=== PATIENT | female | born 1955 | race African-American/Black ===

== ENCOUNTER 2024-08-08 17:38 | Emergency (ER) | payer OTHER, MEDICARE, SELFPAY ==
--- OUTSIDE RECORDS SUMMARY | 2024-08-08 17:40 | XMS_ITS | Encounter Summary ---
Author Organization [facility] Address [address] [place] [address] Care Team Providers Care Clinical Laboratory Director Name Role Phone Petros Galdamez MD Primary Care Provider Petros Galdamez MD Primary Care Provider [phone] Petros Galdamez MD Primary Care Provider [phone] Encounter Details Date Type Department Care Team (Late st Contact Info) Description 11/21/[address] [facility] [address] [place] [address] Van Tate Che, MD [address] [address] Social History Tobacco Use Types Packs/Day Years Used Date Smoking Tobacco: Former Cigarettes Q uit: 06/21/1995 Smokeless Tobacco: Never Alcohol Use Standard Drinks/Week Comments No 0 (1 standard drink = 0.6 oz pur e alcohol) Sex and Gender Information Value Date Recorded Sex Assigned at Female 03/10/2021 2:31 PM CDT Gender Identity Female 03/10/2021 2:31 PM CDT Sexual Orientation Straight 03/10/2021 2: 31 PM CDT documented as of this encounter Plan of Treatment Not on file documented as of this encounter Visit Diagnoses Not on filedocumented in this encounter Care Teams Clinical Laboratory Director Relationship Specialty Start Date End Date Petros Galdamez MD PCP - General 06/02/18 04/23/19 Petros Galdamez MD PCP - General 04/24/19 03/22/23 Petros Galdamez MD [address], [place] [id number] PCP - General Family Medicine 03/23/23 documented as of this encounter
--- OUTSIDE RECORDS SUMMARY | 2024-08-08 17:40 | XMS_ITS | Clinical Summary ---
Author Organization 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 FRIT COATER Gender Identity Not on file Sexual Orientation Not on file Plan of Treatment Health Maintenance Due Date Last Done Comments DEXA Bone Density 1955 Hepatitis C Virus (HCV) Screening 1955 TdaP Immunization 1955 Colonoscopy 08/28/1999 Colorectal Cancer Screening 08/28/1999 Cologuard 2004 Immunochemical Fecal Occult Blood 2004 Mammogram 2004 Pneumococcal Immunization (5 0+ years) (1 of 1 - PCV) 2004 Zoster Immunization (1 of 2) 2004 Influenza Immunization (#1) 2024 SARS-COV-2 Immunization (2023- season) 2024 Respiratory Syncytial Virus (RSV) Immunization (Adult) (1 - 1-dose 75+ series) 2029 Hepatitis B Immunization Aged Out No longer eligible based on patient's age to complete this topic Meningococcal Immunization (ACWY) Aged Out No longer eligible based on patient's age to complete this topic Rotavirus Immunization Aged Out No lo nger eligible based on patient's age to complete this topic
--- OUTSIDE RECORDS SUMMARY | 2024-08-08 17:41 | XMS_ITS | Referral Summary ---
Author Organization [facility] Address [address] [place] [address] Care Team Providers Care Seal Mixer Name Role Phone Petros Galdamez MD Primary Care Provider [phone] Source Comments [facility],non-owned Affiliates and Associated Physician Practices is amultiple site organization consisting of ambulatory clinics and hospital sitesin [place], [place], [place] and [place]. This disclosure is being madepursuant to the Care Everywhere program and may not contain all information available regarding this patient. Last updated 18.[facility] Allergies Active Allergy Reactions Criticality Noted Date Comments Adhesive Sensitivity Skin Reactions,Rash Medium 12/25/2019 Sulfamethoxazole W-Trimethoprim Angioedema High 09/18/2012 OK for patient to take non-antibiotic sulfa drugs as they do not cross-react with sulfa antiobiotics Nitrofurantoin Headache Low 01/03/2020 Medications * Be aware that medications may not be up to date on this document. Alwaysverify current medications with the patient. Medication Sig Dispensed Refills Start Date End Date Status Vitamin D3 (CHOLECALCIFEROL) 50 MCG (1999 UT) capsule Take 1 (one) capsule by mouth once daily 07/08/2021 Active hydroCHLOROthiazide (Hydrodiuril) 12.5 MG Take 1 (one) tablet by mouth once daily Active fluticasone propionate (FLONASE) 50 MCG/ACT nasal sprayIndications:Ch ronic rhinitis [place] 2 (two) sprays into each nostril once daily 1 Each 5 01/05/2022 Active albuterol HFA (PROVENTIL; VENTOLIN; PROAIR) 108 (90 Base) MCG/ACT inhalerIndications: Mild intermittent asthma without complication (HCC) Inhale 2 (two) puffs by mouth every 4 hours as needed for Shortness of Breath, Wheezing or Cough Can also take 10-15 min prior to exercise 18 g 5 01/05/2022 Active Additional Information Patient not taking.Reported on 07/13/2023 atorvastatin (Lipitor) 80 MG tablet Take 1 (one) tablet by mouth at bedtime 30 tablet 3 07/28/2022 Active aspirin (Aspirin) 81 MG chew tablet Take 1 (one) tablet by mouth once daily 100 tablet 3 07/29/2022 Active levothyroxine (Synthroid) 75 MCG tablet Take 1 (one) tablet by mouth once daily 2022 Active omeprazole (PriLOSEC) 20 MG capsule Take 1 (one) capsule by mouth once daily As Directed. 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 I encouraged exercise. Family history of coronary artery disease 2016 Overview (12/14/2018): Last Assessment & Plan: Continue risk factor modification for coronary artery disease. Lipid panel is satisfactory Chest pain 09/18/2012 Overview (12/14/2018): Last Assessment & Plan: She did not undergo a exercise stress test because of transportation issues. Her chest pain is better at this time. Will observe at this time. Resolved Problems Problem Noted Date Diagnosed Date Resolved Date Midline cystocele 06/02/2018 01/12/2023 Nocturia 06/02/2018 01/12/2023 Urge incontinence 06/02/2018 01/12/2023 Dyspnea on exertion 02/19/2017 01/13/20 Overview (12/14/2018): Last Assessment & Plan: Shortness of breath has improved after she lost some weight. Will observe at this time. Evidence of type 1 diastolic dysfunction on the echocardiogram. I hope that after we improve the blood pressure control she might have better breathing Labile essential hypertension 02/19/2017 01/12/2023 Overview (12/14/2018): Last Assessment & Plan: Evidence of moderate concentric LVH on echocardiogram. Her blood pressure slightly elevated today. I will prescribe hydrochlorothiazide 12.5 mg p.o. daily. 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 Never 07/28/2022 Q2: How many drinks containi ng alcohol do you have on a typical day when you are drinking? Patient does not drink Q3: How often do you have si x or more drinks on one occasion? Never 07/28/2022 Overall Financial Resource Strain (CARDIA) Answe r Date Recorded How hard is it for you to pa y for the very basics like food, housing, medical care, and heating? Not hard at all 07/27/2022 PHQ-2 Answer Date Recorded PHQ2 TOTAL SCORE 0 01/05/2023 [facility] [place] [facility] [employer] [facility] - Occupational Stress Questionnaire Answer Date Recorded Do you feel stress - tense, restless, nervous, or anxious, or unable to sleep at night because your mind is troubled all the time - these days? Not at all 07/27/2022 Hunger Vital Sign Answer Date Recorded Within the past 12 months, y ou worried that your food would run out before you got the money to buy more. Never true 07/27/19 23 Within the past 12 months, t he food you bought just didn't last and you didn't have money to get more. Never true 07/27/2022 PRAPARE - Transportation Answer Date Re corded In the past 12 months, has l ack of transportation kept you from medical appointments or from getting medications? No 11/2022 In the past 12 months, has l ack of transportation kept you from meetings, work, or from getting things needed for daily living? No 07/27/2022 Housing Stability Vital Sign Answer Norberto e Recorded In the last 12 months, was t here a time when you were not able to pay the mortgage or rent on time? No 07/27/2022 In the last 12 months, how many places have you lived? 1 07/27/2022 In the last 12 months, was t here a time when you did not have a steady place to sleep or slept in a jail (including now)? No 07/27/2022 Sex and Gender Information Value Date Recorded Sex Assigned at Female 03/10/2021 2:31 PM CDT Gender Identity Female 03/10/2021 2:31 PM CDT Sexual Orientation Straight 03/10/2021 2: 31 PM CDT Last Filed Vital Signs Vital Sign Reading Time Taken Comments Blood Pressure 132/74 07/13/2023 1:26 PM ARCHITECTURAL DESIGNER Pulse 79 03/05/2023 8:17 AM CDT Temperature 36.1 C (96.9 F) 01/12/2023 11:42 AM CDT Respiratory Rate 12 03/05/2023 8:17 AM CDT Oxygen Saturation 100% 10/27/2022 6:50 PM CDT Inhaled Oxygen Concentration - - Weight 86.5 kg (190 lb 9.6 oz) 07/13/2023 1:26 P M ARCHITECTURAL DESIGNER Height 157.5 cm (5' 2 ) 07/13/2023 1:26 PM ARCHITECTURAL DESIGNER Body Mass Index 34.86 07/13/2023 1:26 PM ARCHITECTURAL DESIGNER Functional Status Functional Status Response Date of Assess ment Is person deaf or have serious hearing difficult y? No 07/27/2022 Is person blind or have serious difficulty seein g? No 07/27/2022 Does person have serious dif ficulty walking/climbing stairs? No 07/27/2022 Does person have difficulty dressing/bathing? No 07/27/2022 Does person have difficulty doing errands alone? No 07/27/2022 Cognitive Status Response Date of Assessm ent Does person have difficulty concentrating/remembering/making decisions? No 07/27/2022 Plan of Treatment Not on file Procedures Procedure Name Priority Date/Time Associated Diagnosis Comments MAMMO BILAT SCREENING W JOVANY Routine 08/17/2023 3:32 PM ARCHITECTURAL DESIGNER Encounter for screening mammogram for malignant neoplasm of breast BASIC METABOLIC PANEL (CALCIUM TOTAL) Routine 07/28/2022 12:13 AM ARCHITECTURAL DESIGNER from Last 3 Months or Most Recently Relevant to Health Maintenance Results * MAMMO BILAT SCREENING W JOVANY (08/17/2023 3:32 PM ARCHITECTURAL DESIGNER) Anatomical Region Laterality Modality Breast Bilateral Mammography 08/26/2023 7:37 PM ARCHITECTURAL DESIGNER Impressions 08/26/2023 7:40 PM ARCHITECTURAL DESIGNER : No mammographic evidence of malignancy. RECOMMENDATION: Screening mammography in one year, pending no interval breast concerns. OVERALL ASSESSMENT: BI-RADS CATEGORY 1: NEGATIVE. > Interpreting Provider: Danay Wallace MD on 08/26/2023 7:40 PM Narrative 08/26/2023 7:40 PM ARCHITECTURAL DESIGNER EXAMINATIONS: BILATERAL DIGITAL SCREENING MAMMOGRAM AND BILATERAL BREAST TOMOSYNTHESIS WITH CAD LOCATION: [facility] EXAM DATE: 08/17/2023 HISTORY: Screening. No reported family history of breast cancer. RISK ASSESSMENT CALCULATION: Not performed as tablets currently not available due to pending upgrade. COMPARISON: There are no prior mammograms available for comparison. Patient reports prior at [facility] in 2012. These are no longer available for comparison. TECHNIQUE: Tomosynthesis (3D) and reconstructed synthetic 2-D images acquired and reviewed in the bilateral craniocaudal and mediolateral oblique projections. A total of 6 images obtained. Computer-aided detection (CAD) was utilized. BREAST PARENCHYMAL COMPOSITION: Category A: The breasts are almost entirely fatty. FINDINGS: There are no suspicious findings or evidence of malignancy on mammography. Ordering Provider Unlisted MD ZOEY WHEELER * BASIC METABOLIC PANEL (CALCIUM TOTAL) (07/28/2022 12:13 AM ARCHITECTURAL DESIGNER) BUN 11 7 - 26 mg/dL 07/28/2022 12:56 AM [facility] Creatinine 0.73 0.56 - 0.96 mg/dL 07/28/2022 12:56 AM [facility] Sodium 142 136 - 145 mmol/L 07/28/2022 12:56 AM [facility] Potassium 4.0 3.5 - 4.5 mmol/L 07/28/2022 12:56 AM [facility] Chloride 106 98 - 107 mmol/L 07/28/2022 12:56 AM [facility] CO2 28 22 - 29 mmol/L 07/28/2022 12:56 AM [facility] Glucose 94 70 - 115 mg/dL 07/28/2022 12:56 AM [facility] Calcium 8.9 8.4 - 10.2 mg/dL 07/28/2022 12:56 AM [facility] Anion Gap 12 8 - 18 07/28/2022 12:56 AM [facility] BUN/Creatinine Ratio 15 7 - 23 07/28/2022 12:56 AM [facility] Osmolality Calculated 293 270 - 300 mOsm/kg 07/28/2022 12:56 AM [facility] eGFR by CKD-EPI 90 >=90 mL/min/1.7 3 m2 07/28/2022 12:56 AM [facility] Blood BLOOD SPECIMEN / Unknown Venipuncture / Unknown 07/28/2022 12:13 AM ARCHITECTURAL DESIGNER 07/28/2022 12:27 AM ARCHITECTURAL DESIGNER Hosea Lim MD LAB - CHEMISTRY VITALY WHEELER [facility] [address] [place] [id number], [facility] [phone] from Last 3 Months or Most Recently Relevant to Health Maintenance Advance Directives * Full Code (Latest Code Status on File) Date Activated Date Inactivated Comments 07/27/2022 12:01 AM 07/28/2022 2:08 PM * Full Code Date Activated Date Inactivated Comments 12/25/2019 10:56 AM 12/26/2019 11:53 AM Care Teams Seal Mixer Relationship Specialty Start Date End Date Petros Galdamez MD [address], [place] [id number] PCP - General Family Medicine 03/23/23
--- OUTSIDE RECORDS SUMMARY | 2024-08-08 17:41 | XMS_ITS | Clinical Summary ---
Author Organization [facility] Address [address] [place] [address] Care Team Providers Care Sewer System Supervisor Name Role Phone Petros Galdamez MD Primary Care Provider [phone] Allergies Active Allergy Reactions Criticality Noted Date Comments Adhesive Rash Medium 12/25/2019 Sulfamethoxazole Sulfamethoxazole-Trimethoprim Trimethoprim Medications fluticasone (FLONASE) 50 mcg/actuation nasal spray inhale 2 spray by intranasal route every day in each nostril 0 spray 0 7 Active hydroCHLOROthiazid e (MICROZIDE) 12.5 mg capsule 8 Active omeprazole (PriLOSEC) 20 mg capsule Take 1 capsule (20 mg total) by mouth daily 0 Active atorvastatin (LIPITOR) 80 mg tablet Take 1 tablet (80 mg total) by mouth nightly at bedtime. Active aspirin 81 mg chewable tablet CHEW AND SWALLOW 1 TABLET BY MOUTH EVERY DAY Active levothyroxine (SYNTHROID) 75 mcg tabletIndications: Postablative hypothyroidism TAKE 1 TABLET BY MOUTH EVERY DAY 90 tablet 1 3 Active ergocalciferol (VITAMIN D) 50,000 unit capsuleIndications :Vitamin D deficiency TAKE 1 CAPSULE BY MOUTH EVERY 14 DAYS 2 capsule 11 4 Active Active Problems Problem Noted Date Diagnosed Date Postablative hypothyroidism 12/31/2020 Toxic thyroid nodule 03/21/2018 Vitamin D deficiency 03/18/2018 Hyperthyroidism S/P RAIA 01/31/2018 Labile essential hypertension 02/19/2017 Assessment & Plan (02/19/2017 1:56 PM CDT): Evidence of moderate concentric LVH on echocardiogram. Her blood pressure slightly elevated today. I will prescribe hydrochlorothiazide 12.5 mg p.o. daily. Chest pain 02/19/2017 Assessment & Plan (02/19/2017 1:58 PM CDT): She did not undergo a exercise stress test because of transportation issues. Her chest pain is better at this time. Will observe at this time. Dyspnea on exertion 02/19/2017 Assessment & Plan (02/19/2017 1:58 PM CDT): Shortness of breath has improved after she lost some weight. Will observe at this time. Evidence of type 1 diastolic dysfunction on the echocardiogram. I hope that after we improve the blood pressure control she might have better breathing Family history of coronary artery disease 2016 Assessment & Plan (02/19/2017 1:59 PM CDT): Continue risk factor modification for coronary artery disease. Lipid panel is satisfactory Body mass index 33.0-33.9, adult 02/19/2017 Assessment & Plan (02/19/2017 1:59 PM CDT): She is losing some weight by diet modification. I encouraged exercise. Resolved Problems Problem Noted Date Diagnosed Date Resolved Date Thyroid nodule 02/04/2018 04/18/2018 Surgical History Surgery Date Site/Laterality Comments HYSTERECTOMY 2008 Hysterectomy OTHER SURGICAL HISTORY 1984 vaginal cyst: cyst removed Medical History Medical History Date Comments Hx Other Medical vaginal cyst Hypertension Asthma smoker astham but not currenlty active GERD (gastroesophageal reflux disease) Family History Medical History Relation Name Comments Sickle cell anemia Brother Coronary artery disease Father Caleb nary artery disease; Cause of : Coronary artery disease Other Father Cancer/bone; Graves' disease Half-Sister 1 Hypothyroidism Half-Sister 1 Rheum arthritis Half-Sister 2 Other Maternal Grandmother at age 93 Other Mother Alive and well; Relation Name Status Comments Brother Father Alive Half-Sister 1 Half-Sister 2 Maternal Grandmother Mother Alive Social History Tobacco Use Types Packs/Day Years Used Date Smoking Tobacco: Former Smokeless Tobacco: Never Tobacco Cessation:Counseling Given: Not Answered Alcohol Use Standard Drinks/Week Comments No 0 (1 standard drink = 0.6 oz pur e alcohol) Comments Unknown Sex and Gender Information Value Date Recorded Sex Assigned at Not on file Legal Sex Female 2:48 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 Gender Identity Female 12/31/2020 6:46 AM CDT Sexual Orientation Straight 12/31/2020 6: 46 AM CDT Obstetrics History Last Filed Vital Signs Vital Sign Reading Time Taken Comments Blood Pressure 137/82 04/07/2023 3:40 PM CDT Pulse 87 04/07/2023 3:40 PM CDT Temperature 36.9 C (98.4 F) 04/07/2023 3:40 PM CDT Respiratory Rate 16 01/31/2018 10:09 AM CDT Oxygen Saturation 98% 12/07/2017 7:30 PM CDT Inhaled Oxygen Concentration - - Weight 88.3 kg (194 lb 9.6 oz) 04/07/2023 3:40 P M CDT Height 157.5 cm (5' 2 ) 04/07/2023 3:40 PM CDT Body Mass Index 35.59 04/07/2023 3:40 PM CDT Plan of Treatment Health Maintenance Due Date Last Done Comments Colon Cancer Screening-Colonoscopy 1954 Depression Screening 1954 Fall Risk Assessment 1954 Hepatitis C Screening 1954 Osteoporosis Screening-Bone Density Scan 1954 DTaP/Tdap/Td Vaccine (1 - Tdap) 1965 Hepatitis B Screening 1972 Pneumococcal vaccine 65+ (1 of 1 - PCV) 2004 Zoster Vaccine (1 of 2) 2004 Well Visit 65+ 08/28/2019 Covid-19 Vaccine (3 - 2023- season) 2024, 01/13/2021 Influenza Vaccine (#1) 2024 Breast Cancer Screening-Mammogram 08/17/2024 08/17/2023, 08/17/2023, 09/09/2012 Procedures Procedure Name Priority Date/Time Associated Diagnosis Comments DIGITAL MAMMOGRAPHY Routine 09/09/2012 9 :26 AM CDT from Last 3 Months or Most Recently Relevant to Health Maintenance Results * DIGITAL MAMMOGRAPHY (09/09/2012 9:26 AM CDT) Anatomical Region Laterality Modality Breast Mammography 09/09/2012 9:26 AM CDT Narrative 09/20/2012 4:58 PM CDT Acc#: [id number] [facility] [id number] - Screening Mamm BI DATE OF EXAM: Sep 09 2012 9:26AM DIAGNOSIS: SCREEN MAMMOGRAPHY NEC CLINICAL HISTORY: SCREENING RESULT: \ BILATERAL DIGITAL SCREENING MAMMOGRAM EXAM DATE: 09/09/2012. CLINICAL HISTORY: Screening in an asymptomatic patient with no personal or family history of breast cancer. TECHNIQUE: Bilateral full field digital mammography was performed in the CC and MLO projections. Prior mammograms performed at [facility] in [place], [place] and are not currently available for comparison. CAD was utilized. FINDINGS: The breasts are fatty. Small nodules are seen in the upper outer breasts bilaterally. Two right breast moles are marked. Bilateral axillary lymph nodes are normal in appearance. There are no suspicious microcalcifications. IMPRESSION: \ CATEGORY 0, ATTEMPTS WILL BE MADE TO OBTAIN PRIOR OUTSIDE MAMMOGRAMS FOR COMPARISON. IMPRESSION OF OVERALL ASSESSMENT CATEGORY 0 -- INCOMPLETE, NEEDS ADDITIONAL EVALUATION WITH COMPARISON TO PRIOR (OLD) FILMS. (OLD FILMS SENT FOR.) ADDENDUM Unable to obtain previous outside mammograms for comparison. This examination shows fatty parenchyma. Nodules laterally in both breasts are felt to be lymph nodes. IMPRESSION CATEGORY 1 -- NEGATIVE MAMMOGRAM. IMPRESSION OF OVERALL ASSESSMENT CATEGORY 1 -- NEGATIVE TECHNOLOGIST: TOÑITO TESFAYE, TECHNOLOGIST MEDICAL IMAGING MIXING AND DISPENSING SUPERVISOR: SINDY TRANSCRIBE DATE/TIME: Sep 09 2012 2:07P RADIOLOGIST: SUNNI LY M.D. READ ON: Sep 20 2012 2:28P ORDERING DR: COREY MOLINA M.D. THIS DOCUMENT HAS BEEN ELECTRONICALLY SIGNED BY: SUNNI LY M.D. ON: Sep 20 2012 4:58P MIXING AND DISPENSING SUPERVISOR: SINDY TRANSCRIBE DATE/TIME: Sep 09 2012 2:07P RADIOLOGIST: SUNNI LY M.D. READ ON: Sep 20 2012 2:28P ORDERING DR: COREY MOLINA M.D. THIS DOCUMENT HAS BEEN ELECTRONICALLY SIGNED BY: SUNNI LY M.D. ON: Sep 20 2012 4:58P Procedure Note Provider, MD Hannah - 10/16/2016 Acc#: [id number] [facility] 0017 - Screening Mamm BI DATE OF EXAM: Sep 09 2012 9:26AM DIAGNOSIS: SCREEN MAMMOGRAPHY NEC CLINICAL HISTORY: SCREENING RESULT: \ BILATERAL DIGITAL SCREENING MAMMOGRAM EXAM DATE: 09/09/2012. CLINICAL HISTORY: Screening in an asymptomatic patient with no personal or family history of breast cancer. TECHNIQUE: Bilateral full field digital mammography was performed in the CC and MLO projections. Prior mammograms performed at [facility] in [place], [place] and are not currently available for comparison. CAD was utilized. FINDINGS: The breasts are fatty. Small nodules are seen in the upper outer breasts bilaterally. Two right breast moles are marked. Bilateral axillary lymph nodes are normal in appearance. There are no suspicious microcalcifications. IMPRESSION: \ CATEGORY 0, ATTEMPTS WILL BE MADE TO OBTAIN PRIOR OUTSIDE MAMMOGRAMS FOR COMPARISON. IMPRESSION OF OVERALL ASSESSMENT CATEGORY 0 -- INCOMPLETE, NEEDS ADDITIONAL EVALUATION WITH COMPARISON TO PRIOR (OLD) FILMS. (OLD FILMS SENT FOR.) ADDENDUM Unable to obtain previous outside mammograms for comparison. This examination shows fatty parenchyma. Nodules laterally in both breasts are felt to be lymph nodes. IMPRESSION CATEGORY 1 -- NEGATIVE MAMMOGRAM. IMPRESSION OF OVERALL ASSESSMENT CATEGORY 1 -- NEGATIVE TECHNOLOGIST: TOÑITO TESFAYE, TECHNOLOGIST MEDICAL IMAGING MIXING AND DISPENSING SUPERVISOR: SINDY TRANSCRIBE DATE/TIME: Sep 09 2012 2:07P RADIOLOGIST: SUNNI LY M.D. READ ON: Sep 20 2012 2:28P ORDERING DR: COREY MOLINA M.D. THIS DOCUMENT HAS BEEN ELECTRONICALLY SIGNED BY: SUNNI LY M.D. ON: Sep 20 2012 4:58P MIXING AND DISPENSING SUPERVISOR: SINDY TRANSCRIBE DATE/TIME: Sep 09 2012 2:07P RADIOLOGIST: SUNNI LY M.D. READ ON: Sep 20 2012 2:28P ORDERING DR: COREY MOLINA M.D. THIS DOCUMENT HAS BEEN ELECTRONICALLY SIGNED BY: SUNNI LY M.D. ON: Sep 20 2012 4:58P us Historical Provider MD [facility] MAMMO PROCEDURES Carmen l Result from Last 3 Months or Most Recently Relevant to Health Maintenance Insurance [facility] PPO [facility] MEDICAID MEDICARE SOLUTIONS MEDICARE [facility] MEDICARE SOLUTIONS MEDICARE SOLUTIONS Care Teams Sewer System Supervisor Relationship Specialty Start Date End Date Petros Galdamez MD PCP - General Family Practice 01/04/18
--- OUTSIDE RECORDS SUMMARY | 2024-08-08 17:41 | XMS_ITS | Encounter Summary ---
Author Organization [facility] Address [address] [place] [address] Care Team Providers Care Steel Rigger Name Role Phone Petros Galdamez MD Primary Care Provider Petros Galdamez MD Primary Care Provider [phone] Reason for Visit * Reason Onset Date Comments Post-Op 12/28/2019 Encounter Details Date Type Department Care Team (Late st Contact Info) Description 12/28/2019 Telephone [facility] [address] [place], [place] [id number] Van Tate Che, MD [address] [facility] [address] [place] [address] Post-Op Social History Tobacco Use Types Packs/Day Years [...] PM CDT documented as of this encounter Miscellaneous Notes * Telephone Encounter - Pradeep Marin RN - 12/28/2019 4:25 PM CDT Reassured Ms. Israel to start the ibuprofen - she hadn't started it yet. Assured her it may help with the pain to have a BM and her kong cath. She agrees to plan. We will see you next week. Call us back if needs something else. * Telephone Encounter - Van Tate Che, MD - 12/28/2019 4:11 PM CDT Oh. Not really. I meant one tablet 3 times a day. If she is at 4, just leave things alone She will start having loose stools soon No glycerin suppositories - these are a laxative and make her have bowel movements by stimulating her rectum * Telephone Encounter - Van Tate Che, MD - 12/28/2019 1:47 PM CDT Ibuprofen is fine. She is supposed to go to 3 stool softeners a day * Telephone Encounter - Pradeep Marin RN - 12/28/2019 11:42 AM CDT C/o burning in the back - clarified rectal area. Had BM yesterday without trying and the stool was'Huge . Since BM, the discomfort became a burning pain. She feels another stool, but afraid to passit.Using stool softeners 2 tabs BID. Burning pain happened after talking to Dr Tate yesterday. She stopped all pain pills - was taking every [address], [address] Dr Tate helped her understand this can lead to constipation. She's more afraid of constipation than pain. She hasn't taken anymore prescribed narcotics or ibuprofen or Tylenol. Denies using Ibuprofen r/t afraid to take anything. Went home with kong catheter which is uncomfortable too. Denies bleeding d/c. Some red & pink seen on stool ADVISED: will send this to Dr Tate. Please use ibuprofen for pain/discomfort. It should helped with this burning pain and discomfort from the catheter. If it doesn't, we want to know about it. * Telephone Encounter - Zach Douglass - 12/28/2019 10:41 AM CDT Pt calling to report that since surgery on Wednesday, 12/24 she has been very miserable . Pt states that she is having a lot of discomfort and a burning sensation from front to back. Pt stopped taking pain med but would like to speak with a Nurse about managing discomfort. Pt's CB #: [phone] documented in this encounter Plan of Treatment Not on file documented as of this encounter Visit Diagnoses Not on filedocumented in this encounter Care Teams Steel Rigger Relationship Specialty Start Date End Date Petros Galdamez MD PCP - General 04/24/19 03/22/23 Petros Galdamez MD [address] [place], [place] [id number] PCP - General Family Medicine 03/23/23 documented as of this encounter
--- OUTSIDE RECORDS SUMMARY | 2024-08-08 17:41 | XMS_ITS | Clinical Summary ---
Author Organization [facility] Address [address] [place] [address] Care Team Providers Care Head Operator Sulfide Name Role Phone Petros Galdamez MD Primary Care Provider [phone] Source Comments [facility],non-owned Affiliates and Associated Physician Practices is amultiple site organization consisting of ambulatory clinics and hospital sitesin [place], [place], [place] and [place]. This disclosure is being madepursuant to the Care Everywhere program and may not contain all information available regarding this patient. Last updated 18.[facility] Allergies Active Allergy Reactions Criticality Noted Date [...] (FLONASE) 50 MCG/ACT nasal sprayIndications:Ch ronic rhinitis [place] 2 (two) sprays into each nostril once [...] 01/12/2023 Immunizations Name Administration Dates Next Due Dualog primary monoval ent 12+ yr 0.3mL Purple cap 02/03/2021,01/13/2021 Family History Medical History Relation Name Comments None Known Brother Depression Father Hypertension Father None Known Maternal Grandfather None Known Maternal Grandmother None Known Mother None Known Other None Known Paternal Grandfather None Known Paternal Grandmother None Known Sister Alcohol abuse Neg Hx Asthma Neg Hx Dementia Neg Hx Drug Abuse Neg Hx Glaucoma Neg Hx Gout Neg Hx Leukemia Neg Hx Migraine Neg Hx Multiple Sclerosis Neg Hx Other Neg Hx Thyroid Disease Neg Hx Relation Name Status Comments Brother Father Maternal Grandfather Maternal Grandmother Mother Other Paternal Grandfather Paternal Grandmother Sister Social History Tobacco Use Types Packs/Day Years [...] Date Recorded PHQ2 TOTAL SCORE 0 01/05/2023 [facility] - Occupational Stress [...] place to sleep or slept in a intermediate (including now)? No 07/27/2022 Sex and Gender Information Value Date Recorded Sex Assigned at Female 03/10/2021 2:31 PM CDT Gender Identity Female 03/10/2021 2:31 PM CDT Sexual Orientation Straight 03/10/2021 2: 31 PM CDT Last Filed Vital Signs Vital Sign Reading Time Taken Comments Blood Pressure 132/74 07/13/2023 1:26 PM SHIPPER/RECEIVER Pulse 79 03/05/2023 8:17 AM CDT Temperature 36.1 C (96.9 F) 01/12/2023 11:42 AM CDT Respiratory Rate 12 03/05/2023 8:17 AM CDT Oxygen Saturation 100% 10/27/2022 6:50 PM CDT Inhaled Oxygen Concentration - - Weight 86.5 kg (190 lb 9.6 oz) 07/13/2023 1:26 P M SHIPPER/RECEIVER Height 157.5 cm (5' 2 ) 07/13/2023 1:26 PM SHIPPER/RECEIVER Body Mass Index 34.86 07/13/2023 1:26 PM SHIPPER/RECEIVER Plan of Treatment Health Maintenance Due Date Last Done Comments BONE DENSITY TESTING 1955 COLOGUARD (AGES 45-75) - COLON CA SCREENING 1954 COLON MONITORING 1954 COLONOSCOPY - COLON CA SCREENING 1954 CT COLONOGRAPHY - COLON CA SCREENING 1955 Colorectal Cancer Screening 1955 FIT - COLON CA SCREENING 1954 FLEX SIG - COLON CA SCREENING 1955 HEPATITIS C SCREENING 08/22/1972 DTAP/TDAP/TD VACCINES (1 - Tdap) 1973 PNEUMOCOCCAL VACCINE 50+ (1 of 1 - PCV) 2004 ZOSTER VACCINE (1 of 2) 2004 Respiratory Syncytial Virus (RSV) Vaccine Pt: or over 60 yrs (1 - Risk 60-74 years 1-dose series) 2014 COVID-19 VACCINE ( season) 2024 02/03/2021, 01/13/2021 INFLUENZA VACCINE (#1) 2024 DEPRESSION SCREENING 06/21/2024 01/12/2023 MEDICARE AWV CALENDAR YEAR 2024 SCREENING FOR DIABETES 07/28/2025 3, 07/28/2022, 07/28/2022, Additional history exists MAMMOGRAM 08/17/2025 08/17/2023, 09/09/2012 HEPATITIS B VACCINE Aged Out No longe r eligible based on patient's age to complete this topic HIB VACCINE Aged Out No longer eligi ble based on patient's age to complete this topic HPV VACCINE Aged Out No longer eligi ble based on patient's age to complete this topic MENINGOCOCCAL (Group B) VACCINE Aged Out No longer eligible based on patient's age to complete this topic MENINGOCOCCAL VACCINE Aged Out No norma diandra eligible based on patient's age to complete this topic Procedures Procedure Name Priority Date/Time Associated Diagnosis Comments MAMMO BILAT SCREENING W JOVANY Routine 08/17/2023 3:32 PM SHIPPER/RECEIVER Encounter for screening mammogram for malignant neoplasm of breast BASIC METABOLIC PANEL (CALCIUM TOTAL) Routine 07/28/2022 12:13 AM SHIPPER/RECEIVER from Last 3 Months or Most Recently Relevant to Health Maintenance Results * MAMMO BILAT SCREENING W JOVANY (08/17/2023 3:32 PM SHIPPER/RECEIVER) Anatomical Region Laterality Modality Breast Bilateral Mammography 08/26/2023 7:37 PM SHIPPER/RECEIVER Impressions 08/26/2023 7:40 PM SHIPPER/RECEIVER : No mammographic evidence of malignancy. RECOMMENDATION: Screening mammography in one year, pending no interval breast concerns. OVERALL ASSESSMENT: BI-RADS CATEGORY 1: NEGATIVE. > Interpreting Provider: Danay Wallace MD on 08/26/2023 7:40 PM Narrative 08/26/2023 7:40 PM SHIPPER/RECEIVER EXAMINATIONS: BILATERAL DIGITAL SCREENING MAMMOGRAM AND BILATERAL BREAST TOMOSYNTHESIS WITH CAD LOCATION: [facility] EXAM DATE: 08/17/2023 HISTORY: Screening. No reported family history of breast cancer. RISK ASSESSMENT CALCULATION: Not performed as tablets currently not available due to pending upgrade. COMPARISON: There are no prior mammograms available for comparison. Patient reports prior at [facility] in 2012. These are no longer available [...] METABOLIC PANEL (CALCIUM TOTAL) (07/28/2022 12:13 AM SHIPPER/RECEIVER) BUN 11 7 - 26 mg/dL 07/28/2022 12:56 AM [facility] Creatinine 0.73 0.56 - 0.96 mg/dL 07/28/2022 12:56 AM [facility] Sodium 142 136 - 145 mmol/L 07/28/2022 12:56 AM [facility] Potassium 4.0 3.5 - 4.5 mmol/L 07/28/2022 12:56 AM [facility] Chloride 106 98 - 107 mmol/L 07/28/2022 12:56 AM [facility] CO2 28 22 - 29 mmol/L 07/28/2022 12:56 AM [facility] Glucose 94 70 - 115 mg/dL 07/28/2022 12:56 AM [facility] Calcium 8.9 8.4 - 10.2 mg/dL 07/28/2022 12:56 AM [facility] Anion Gap 12 8 - 18 07/28/2022 12:56 AM [facility] BUN/Creatinine Ratio 15 7 - 23 07/28/2022 12:56 AM [facility] Osmolality Calculated 293 270 - 300 mOsm/kg 07/28/2022 12:56 AM [facility] eGFR by CKD-EPI 90 >=90 mL/min/1.7 3 m2 07/28/2022 12:56 AM [facility] Blood BLOOD SPECIMEN / Unknown Venipuncture / Unknown 07/28/2022 12:13 AM SHIPPER/RECEIVER 07/28/2022 12:27 AM [facility] Hosea Lim MD LAB - CHEMISTRY VITALY WHEELER [facility] Organization Address City/State/ZIP Co de Phone Number [facility] [address] [place] [address], [facility] [phone] from Last 3 Months or Most Recently Relevant to Health Maintenance Advance Directives * Full Code (Latest Code Status on File) Date Activated Date Inactivated Comments 07/27/2022 12:01 AM 07/28/2022 2:08 PM * Full Code Date Activated Date Inactivated Comments 12/25/2019 10:56 AM 12/26/2019 11:53 AM Care Teams Head Operator Sulfide Relationship Specialty Start Date End Date Petros Galdamez MD [address] [place], [place] [id number] PCP - General Family Medicine 03/23/23
--- OUTSIDE RECORDS SUMMARY | 2024-08-08 17:41 | XMS_ITS | Referral Summary ---
Author Organization [facility] Address [address] [place] [address] Care Team Providers Care Water Analyst Name Role Phone Petros Galdamez MD Primary Care Provider [phone] Allergies Active Allergy Reactions Criticality Noted Date [...] Date Resolved Date Thyroid nodule 02/04/2018 04/18/2018 Social History Tobacco Use Types Packs/Day Years Used Date Smoking Tobacco: Former Smokeless Tobacco: Never Tobacco Cessation:Counseling Given: Not Answered Alcohol Use Standard Drinks/Week Comments No 0 (1 standard drink = 0.6 oz pur e alcohol) Comments Unknown Sex and Gender Information Value Date Recorded Sex Assigned at Not on file Legal Sex Female 2:48 AM EDGE PLUGGER Gender Identity Female 12/31/2020 6:46 AM CDT Sexual Orientation Straight 12/31/2020 6: 46 AM CDT Last Filed Vital Signs Vital Sign [...] 04/07/2023 3:40 PM CDT Plan of Treatment Not on file Procedures Procedure Name Priority Date/Time Associated Diagnosis Comments DIGITAL MAMMOGRAPHY Routine 09/09/2012 9 :26 AM CDT from Last 3 Months or Most Recently Relevant to Health Maintenance Results * DIGITAL MAMMOGRAPHY (09/09/2012 9:26 AM CDT) Anatomical Region Laterality Modality Breast Mammography 09/09/2012 9:26 AM CDT Narrative 09/20/2012 4:58 PM CDT Acc#: [id number] VICTOR MANUEL 0017 - Screening Mamm BI [...] and MLO projections. Prior mammograms performed at [facility] in [place], [place] and are not currently available for [...] ASSESSMENT CATEGORY 1 -- NEGATIVE TECHNOLOGIST: TOÑITO TESFAYE TECHNOLOGIST MEDICAL IMAGING BUREAU DIRECTOR: SINDY TRANSCRIBE DATE/TIME: Sep 09 2012 2:07P RADIOLOGIST: SUNNI YL M.D. READ ON: Sep 20 2012 2:28P ORDERING DR: COREY MOLINA M.D. THIS DOCUMENT HAS BEEN ELECTRONICALLY SIGNED BY: SUNNI LY M.D. ON: Sep 20 2012 4:58P BUREAU DIRECTOR: SINDY TRANSCRIBE DATE/TIME: Sep 09 2012 2:07P RADIOLOGIST: SUNNI LY M.D. READ ON: Sep 20 2012 2:28P ORDERING DR: COREY MOLINA M.D. THIS DOCUMENT HAS BEEN ELECTRONICALLY SIGNED BY: SUNNI LY M.D. ON: Sep 20 2012 4:58P Procedure Note Provider, MD Hannah - 10/16/2016 Acc#: [id number] VI[facility] 0017 - Screening Mamm BI [...] and MLO projections. Prior mammograms performed at [facility] in [place], [place] and are not currently available for [...] ASSESSMENT CATEGORY 1 -- NEGATIVE TECHNOLOGIST: TOÑITO TESFAYE TECHNOLOGIST MEDICAL IMAGING BUREAU DIRECTOR: SINDY TRANSCRIBE DATE/TIME: Sep 09 2012 2:07P RADIOLOGIST: SUNNI LY M.D. READ ON: Sep 20 2012 2:28P ORDERING DR: COREY MOLINA M.D. THIS DOCUMENT HAS BEEN ELECTRONICALLY SIGNED BY: SUNNI LY M.D. ON: Sep 20 2012 4:58P BUREAU DIRECTOR: SINDY TRANSCRIBE DATE/TIME: Sep 09 2012 2:07P RADIOLOGIST: SUNNI LY M.D. READ ON: Sep 20 2012 2:28P ORDERING DR: COREY MOLINA M.D. THIS DOCUMENT HAS BEEN ELECTRONICALLY SIGNED BY: SUNNI LY M.D. ON: Sep 20 2012 4:58P Historical Provider MD MAURICE MAMMO PROCEDURES Carmen l Result from Last 3 Months or Most Recently Relevant to Health Maintenance Insurance [place] PPO [employer]PA [facility] MEDICAID MEDICARE SOLUTIONS MEDICARE [facility] MEDICARE SOLUTIONS MEDICARE SOLUTIONS Care Teams Water Analyst Relationship Specialty Start Date End Date Petros Galdamez MD PCP - General Family Practice 01/04/18
--- OUTSIDE RECORDS SUMMARY | 2024-08-08 17:41 | XMS_ITS | Clinical Summary ---
Author Organization [facility] Address [address] [place] [address] Care Team Providers Care Solution Professional Name Role Phone Petros Galdamez MD Primary Care Provider [phone] Allergies Active Allergy Reactions Criticality Noted Date Comments Sulfamethoxazole-Trimethoprim Swelling 2018 Medications fluticasone propionate (FLONASE) 50 MCG/ACT nasal spray 1 spray by Each Nostril route daily. 16 mL 0 Active albuterol sulfate HFA 108 (90 Base) MCG/ACT inhaler Inhale 2 puffs into the lungs every 4 (four) hours as needed for Shortness of breath, Wheezing or Cough. Can take 15 minutes prior to exercise. 2 Active hydroCHLOROthia zide (MICROZIDE) 12.5 MG capsule Take 12.5 mg by mouth daily. 2 Active levothyroxine (SYNTHROID) 50 MCG tablet Take 50 mcg by mouth every morning. 2 Active EPINEPHrine (EPIPEN) 0.3 MG/0.3ML injection Inject 0.3 mLs (0.3 mg total) into the muscle as needed for Anaphylaxis. 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 Her blood pressure slightly elevated today. I will prescribe hydrochlorothiazide 12.5 mg p.o. daily. Last Assessment & Plan: Evidence of moderate concentric LVH on echocardiogram. Her blood pressure slightly elevated today. I will prescribe hydrochlorothiazide 12.5 mg p.o. daily. Dyspnea on exertion 02/19/2017 Overview (02/02/2022): Last Assessment & Plan: Shortness of breath has improved after she lost some weight. Will observe at this time. Evidence of type 1 diastolic dysfunction on the echocardiogram. I hope that after we improve the blood pressure control she might have better breathing Last Assessment & Plan: Shortness of breath has improved after she lost some weight. Will observe at this time. Evidence of type 1 diastolic dysfunction on the echocardiogram. I hope that after we improve the blood pressure control she might have better breathing Chest pain 09/18/2012 Overview (02/02/2022): Last Assessment & Plan: She did not undergo a exercise stress test because of transportation issues. Her chest pain is better at this time. Will observe at this time. Last Assessment & Plan: She did not undergo a exercise stress test because of transportation issues. Her chest pain is better at this time. Will observe at this time. 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 Gender Identity Not on file Sexual Orientation Not on file Last Filed Vital Signs Vital Sign Reading Time Taken Comments Blood Pressure 149/80 02/13/2022 4:32 PM CDT Pulse 69 02/13/2022 4:32 PM CDT Temperature 36.1 C (97 F) 02/13/2022 2:23 PM CDT Respiratory Rate 16 02/13/2022 2:23 PM CDT Oxygen Saturation 100% 02/13/2022 4:32 PM CDT Inhaled Oxygen Concentration - - Weight 90.3 kg (199 lb) 02/13/2022 2:23 PM CDT Height 157.5 cm (5' 2 ) 02/13/2022 2:23 PM CDT Body Mass Index 36.4 02/13/2022 2:23 PM CDT Plan of Treatment Health Maintenance Due Date Last Done Comments Colorectal Cancer Screening Colonoscopy (10 Years) 1954 Hepatitis C 1972 DTaP, Tdap and Td Vaccines ( 1 - Tdap) 1973 Mammogram Screening 1994 Zoster Vaccines (1 of 2) 2004 Annual Medicare Wellness Visit 08/28/2019 Dexa Scan (General) 08/28/2019 Pneumococcal Vaccine: 65+ Years (1 of 1 - PCV) 08/28/2019 COVID-19 Vaccine (3 - 2023-2 5 season) 2024 02/03/2021, 01/13/2021 Influenza Adult (#1) 2024 RSV Immunization or 60+ Years (1 - 1-dose 75+ series) 2029 Meningococcal B Vaccine Aged Out No l onger eligible based on patient's age to complete this topic Meningococcal Vaccine Aged Out No norma diandra eligible based on patient's age to complete this topic RSV Immunizations Under 20 Months Aged Out No longer eligible b ased on patient's age to complete this topic Goals Goal Patient Goal Type Associated Problems Recent Progress Patient-Stated? Author Health - patient able to perform ADLs independently Lifestyle No Pradeep Siddiqui i, RN Insurance [facility] Advance Directives * Full Code (Latest Code Status on File) Date Activated Date Inactivated Comments 02/03/2022 12:15 AM 02/03/2022 4:09 PM Care Teams Solution Professional Relationship Specialty Start Date End Date Petros Galdamez MD PCP - General FAMILY PRACTICE 06/29/18
--- OUTSIDE RECORDS SUMMARY | 2024-08-08 17:41 | XMS_ITS | Data Portability ---
Author Organization CHARI CHAPISEmilee Burger Address [address] [place] [address] Care Team Providers Care Back Tender Pulp Drier Name Role Phone PETROS GALDAMEZ Primary Care Provider [phone] Assessment No assessment recorded. Plan of Treatment Reminders Order Date Submit Date Provider Last Modified By Organization Details Last Modified Time Details Appointments None recorded. Lab None recorded. Referral None recorded. Procedures None recorded. Surgeries None recorded. Imaging None recorded. Medication Orders fluticasone propionate 50 mcg/actuati on nasal spray,suspe nsion 2023 [id number], [address] [place] [address], [id number], 12:31:41 Maxitrol 3.5 mg/g-10,000 unit/g-0.1 % [facility] ointment [id number], [address] [place], [place], [id number], 4 16:38:47 Refresh Tears 0.5 % eye drops 2023 [facility], [address] [place], [place], [id number], 4 16:38:47 Zithromax Z-Geronimo 250 mg tablet 2023 [email or web address] 23 [facility] #87601, [facility] [place], [place], [id number], 23:16:04 methylpredn isolone 4 mg tablet 2023 024 [email or web address] [facility] #99372, [address] [place], [place], [id number], 23:16:04 Patient Targets Encounter Date Encounter Id Patient Goals Patient Target Last Modified By Organization Details Last Modified Time We do hope to get to the bottom of this. I would like to add a steroid inhaler, but they cost to much. Our system faling us, but I won't say more. [email or web address] Not available 04/29/2024 13:56:47 Patient Instructions Encounter Date Encounter Id Patient Instructions Last Modified By Organization Details Last Modified Time 03/20/2024 [id number] stroke: care instructions [email or web address] Not available 03/20/2024 22:44:21 bronchitis: care instructions [email or web address] Not available 03/20/2024 22:44:21 learning about high blood pressure [email or web address] Not available 03/20/2024 22:44:21 You may use robitussin DM over the counter for cough. Please take all medications as directed. Report any problems with them to us. Keep adequate fluid intake. Summer is coming to a close. Fall is here. Changes in weather can cause an increased chance of illness. Try to keep the body temperature constant. Decrease red meat. (Pork & beef). Increase vegetables & fruits. Please add exercise if you can. Get a little sunlight daily even if it's in your house. Vitamin D Deficiency is caused by our lack of sunlight. Not because of a poor diet. Let the shades up and let the sun shine in on you. Use the [address] [facility], they address all the issues. Follow up in 1 month. [email or web address] Not available 03/20/2024 22:45:06 We discuss the education of the problems, the possible causes of these problems and possible treatments that we can offer. The side effects of the medications prescribed are discussed. Support and counseling given. Our primary goal, is to help you. Let's work together to get a better outcome. I discussed the [address] [facility] to [facility]. [email or web address] Not available 03/20/2024 22:45:12 03/27/2024 [id number] stroke: care instructions [email or web address] Not available 03/27/2024 23:09:22 learning about high blood pressure [email or web address] Not available 03/27/2024 23:09:05 See your Pulp Machine Operator when you can. [email or web address] Not available 03/27/2024 23:10:00 Make an appointment for and come in so I can listen to your heart and see what I hear. Not available 03/27/2024 21:38:56 04/10/2024 [id number] Use new rx Ret i n a few weeks if not better. [email or web address] Not available 04/10/2024 16:49:25 04/17/2024 [id number] learning about high blood pressure [email or web address] Not available 04/17/2024 17:37:10 Go to ER at [facility] and I will call ahead to let them know I am sending you. We will arrange follow up after we know what is going on. [email or web address] Not available 04/17/2024 17:40:42 04/28/2024 [id number] allergies: care instructions [email or web address] Not available 04/29/2024 12:31:37 learning about high blood pressure Not available 04/29/2024 14:04:53 Please take all medications as directed. Report any problems with them to us. Keep adequate fluid intake. Fall is here with it's cooler temperatures and allergies. Changes in weather can cause an increased chance of illness. The cooler temperatures can also result in more pain. Try to keep the body temperature constant. Decrease red meat. (Pork & beef). Increase vegetables & fruits. Use the [address] [facility], they address all the issues. Follow up in 3 weeks. [email or web address] Not available 04/29/2024 13:54:33 We discuss the education of the problems, the possible causes of these problems and possible treatments that we can offer. The side effects of the new medications prescribed are discussed. Support and counseling given. Our primary goal, is to help you. Let's work together to get a better outcome. I discussed the [address] [facility] to Good Health. [email or web address] Not available 04/29/2024 13:54:48 Reason for Referral None Reported. Results Created Date Observation Date Name Description Value Unit Range Abnormal Flag Note LastModifiedBy Organization Detail LastModifiedTime 02/18/20 24 02/17/2024 US, echoc ardio gram, trans thora cic, compl ete, w/ color flow No observ ation record ed. [facility] Scheduling [address], [place], [address], 02/18/2024 12:55:56 02/18/20 24 02/17/2024 US, doppl er echoc ardio gram No observ ation record ed. [facility] Scheduling [address], [place], [address], 03/06/2024 10:07:06 03/02/20 24 02/17/2024 exerc ise terrances s test No observ ation record ed. [facility] Scheduling [address], [place], [address], 03/02/2024 12:08:36 04/17/20 24 04/17/2024 elect rocar diogr am No observ ation record ed. [facility] Scheduling [address], [place], [address], 04/18/2024 17:14:12 04/17/20 24 04/17/2024 CT, angio gram, chest , w/ contr ast No observ ation record ed. [facility] Scheduling [address], [place], [address], 04/18/2024 17:15:24 04/18/20 24 04/17/2024 elect rocar diogr am No observ ation record ed. [email or web address] [facility] Scheduling [address], [place], [address], 04/22/2024 21:34:41 04/25/20 24 02/17/2024 cardi ac stres s test No observ ation record ed. [email or web address] [place] [address] [facility] [address] [place], [address], 04/29/2024 21:19:10 Result Notes None recorded. Problems Name Problem SNOMED Code Status Onset Date Resolution Date Notes Provider Name and Address Organization Details Recorded Time Allergic rhinitis 79683796 Active 2017 JADON Ch[place], [place] - [facility] 4 17:45:02 Hyperthyroidi sm 37262041 Active 2017 J[place], [place] [facility] 4 17:45:26 Essential hypertension 59014920 Active 2017 J[place], [place] [facility] 4 17:45:12 Fracture of foot 31745461 Active 2017 [facility] Available [facility] 4 04:21:17 Closed fracture of calcaneus 03747926 Active 2017 J[place], [place] - [facility] 4 17:45:07 Cerebrovascul ar accident 959604033 Active 2022 J[place] [facility] 4 17:45:04 Pain in lower limb 61110315 Active 2022 J[place] [facility] 4 17:45:19 History of cerebrovascul ar accident 794875591 Active 2023 JADON Olivares, [place] - [facility] 4 17:56:18 Hyperlipidemi a 87318401 Active 2023 JADON Oliv[place], [place] - [facility] 4 17:56:20 Chest pain 19331755 Active 2023 JADON Oliv[place], [place] - [facility] 4 17:56:21 Notes:Some problems listed i n Document: #[id number] could not be added to this patient's chart. Please review this document and add these problems to the patient's chart manually as needed. Problem Notes None recorded. Procedures Surgical History Date Name Laterality Status Provider Name and Address Organization Details Recorded Time 10/20/19 24 Routine Foot Care completed SIL DILLON DPM [address], [place], [address], [facility] 10/20/2023 17:17:34 02/03/20 19 Flexible Laryngoscopy completed Sha Salomon MD [address], [place], [address], [facility] 02/02/2019 16:38:51 Imaging Results Imaging Date Name Status LastModified by Organization Details LastModified Time 02/17/2024 US, echocardiogram, transthoracic, complete, w/ color flow completed [facility] [address] [place], [address], 02/18/2024 12:55:56 02/17/2024 US, doppler echocardiogram completed [facility] [address] [place], [address], 03/06/2024 10:07:06 02/17/2024 exercise stress test completed [facility] Scheduling [address] [place], [address], 03/02/2024 12:08:36 04/17/2024 electrocardiogram completed [facility] Scheduling [address] [place], [address], 04/18/2024 17:14:12 04/17/2024 CT, angiogram, chest, w/ contrast completed [facility] [address] [place], [address], 04/18/2024 17:15:24 04/17/2024 electrocardiogram completed [facility] [address] [place], [address], 04/22/2024 21:34:41 02/17/2024 cardiac stress test completed [email or web address] [facility] Scheduling [address] [place], [address], 04/29/2024 21:19:10 Procedure Notes None recorded. Medical Equipment None Reported. Allergies Allergen ID Allergen Name Allergen Category Reaction Reaction Severity Criticality Documentation Date Start Date Code Code System Note Provider Name and Address Organization Details Recorded Time [id number] Bactrim medicatio n facial swelling severe Not available 11/09/2017 42111 9 RxNorm Not Available Not Available Not Available Medications Name Sig Start Date Stop Date Status Note LastModified by Organization Details LastModified Time Refresh Tears 0.5 % eye drops Apply 1 drop 3 times a day by ophthalm ic route. 2023 active Not Available Not Available Not Avai lable amoxicill in 500 mg capsule 03/05 completed Not Available Not Available Not Available atorvasta tin 80 mg tablet Take 1 tablet every day by oral route. active Not Available Not Available No t Available azelastin e 0.05 % eye drops INSTILL 1 DROP IN AFFECTED EYE(S) TWICE DAILY 2023 active Not Available Not Available Not Avai lable doxycycli ne hyclate 100 mg capsule active Not Available Not Available Not Available cetirizin e 10 mg tablet TAKE 1 TABLET BY MOUTH EVERY DAY 02/14 completed Not Available Not Available Not Available azithromy paul 250 mg tablet TAKE 2 TABLETS (500 MG) BY ORAL ROUTE ONCE DAILY FOR 1 DAY THEN 1 TABLET (250 MG) BY ORAL ROUTE ONCE DAILY FOR 4 DAYS active Not Available Not Available No t Available ibuprofen 800 mg tablet 03/05 completed Not Available Not Available Not Available fluconazo le 150 mg tablet TAKE 1 TABLET BY MOUTH EVERY WEEK 01/23 completed Not Available Not Available Not Available ketotifen 0.025 % (0.035 %) eye drops active Not Available Not Available No t Available clarithro mycin 500 mg tablet 03/05 completed Not Available Not Available Not Available hydrocodo ne 5 mg-acetam inophen 325 mg tablet Take 1 tablet every 6 hours by oral route. 03/05 completed Not Available Not Available Not Available urea 40 % topical cream APPLY TO THE AFFECTED AREA BY TOPIXAL ROUTE TWICE DAILY 01/23 completed Not Available Not Available Not Available promethaz ine 6.25 mg/5 mL oral syrup TAKE 5 MILLILIT ERS BY MOUTH EVERY 6 HOURS NEEDED 01/23 completed Not Available Not Available Not Available meloxicam 15 mg tablet TAKE 1 TABLET BY MOUTH EVERY DAY 03/05 completed Not Available Not Available Not Available sucralfat e 1 gram tablet TAKE 1 TABLET BY MOUTH THREE TIMES DAILY DIRECTED 02/14 completed Not Available Not Available Not Available prednison e 20 mg tablet TAKE 1 TABLET BY MOUTH TWICE DAILY active Not Available Not Available No t Available methylpre dnisolone 4 mg tablet TAKE 2 TABLETS BY MOUTH TWICE DAILY active Not Available Not Available No t Available Debrox 6.5 % ear drops INSTILL 5 DROPS INTO AFFECTED EAR(S) BY OTIC ROUTE 2 TIMES PER DAY 02/14 completed Not Available Not Available Not Available potassium chloride ER 10 mEq tablet,ex tended release TAKE 1 TABLET BY MOUTH TWICE DAILY FOR EMRE Henderson 01/23 completed Not Available Not Available Not Available metronida zole 500 mg tablet 03/05 completed Not Available Not Available Not Available Klor-Con 20 mEq oral packet MIX AND DRINK 1 PACKET BY MOUTH TWICE DAILY active Not Available Not Available No t Available omeprazol e 40 mg capsule,d elayed release TAKE 1 CAPSULE BY MOUTH TWICE DAILY 01/23 completed Not Available Not Available Not Available aspirin 81 mg tablet,de layed release Take for tablets at one time if you get severe chest pain 03/05 completed Not Available Not Available Not Available triamcino lone acetonide 0.1 % topical cream APPLY TOPICALL Y TO THE AFFECTED AREA EVERY 8 HOURS FOR 7 DAYS 01/23 completed Not Available Not Available Not Available Depo-Medr ol 80 mg/mL suspensio n for injection Take 80 mg by injectio n route. 03/05 completed Pt tolerate d well. Not Available Not Available Not Available levothyro xine 25 mcg tablet TAKE 1 TABLET BY MOUTH EVERY DAY active Not Available Not Available No t Available levothyro xine 75 mcg tablet TAKE 1 TABLET BY MOUTH EVERY DAY 01/23 completed Not Available Not Available Not Available levothyro xine 100 mcg tablet TAKE 1 TABLET BY MOUTH DAILY ON AN EMPTY STOMACH WITH NO OTHER MEDICATI ON 01/23 completed Not Available Not Available Not Available amoxicill in 875 mg tablet Take 1 tablet every 12 hours by oral route. 03/28 completed Not Available Not Available Not Available dicyclomi ne 20 mg tablet 03/05 completed Not Available Not Available Not Available amitripty line 10 mg tablet 03/05 completed Not Available Not Available Not Available meclizine 25 mg tablet Take 1 tablet 3 times a day by oral route as needed. 10/08 completed Not Available Not Available Not Available levothyro xine 50 mcg tablet TAKE 1 TABLET(5 0 MCG) BY MOUTH DAILY 01/23 completed Not Available Not Available Not Available cephalexi n 500 mg capsule TAKE 1 CAPSULE BY MOUTH THREE TIMES DAILY FOR 10 DAYS 01/23 completed Not Available Not Available Not Available erythromy paul 5 mg/gram (0.5 %) eye ointment APPLY 1 CM RIBBON INTO THE LOWER CONJUNCT IVAL SAC(S) IN THE AFFECTED EYE(S) BY OPHTHALM IC ROUTE 3 TIMES PER DAY 03/05 completed Not Available Not Available Not Available tobramyci n 0.3 % eye drops Instill 1 drop every 4 hours by ophthalm ic route. 01/23 completed Not Available Not Available Not Available ranitidin e 150 mg tablet Take 1 tablet twice a day by oral route. 03/05 completed Not Available Not Available Not Available hydrochlo rothiazid e 12.5 mg capsule TAKE 1 CAPSULE BY MOUTH EVERY DAY active Not Available Not Available No t Available nitroglyc jose 0.4 mg sublingua l tablet One tablet under the tongue as needed for chest pain. May repeat in 5 minutes. active Not Available Not Available No t Available omeprazol e 20 mg capsule,d elayed release TAKE 1 CAPSULE BY MOUTH EVERY DAY 02/14 completed Not Available Not Available Not Available aspirin 81 mg chewable tablet CHEW AND SWALLOW 1 TABLET BY MOUTH EVERY DAY active Not Available Not Available No t Available hydrocort isone 2.5 % topical cream APPLY A THIN LAYER TO THE AFFECTED AREA(S) BACK, LEGS AND CALF 2 TIMES DAILY 03/05 completed Not Available Not Available Not Available monteluka st 10 mg tablet TAKE 1 TABLET BY MOUTH EVERY DAYPA TIENT NEEDS AN APPOINTM ENT, NO FURTHER REFILLS* 01/23 completed Not Available Not Available Not Available hydrochlo rothiazid e 25 mg tablet Take 1 tablet every day by oral route. 08/06 completed Not Available Not Available Not Available mupirocin 2 % topical ointment APPLY TOPICALL Y TO THE AFFECTED AREA TWICE DAILY 01/23 completed Not Available Not Available Not Available furosemid e 20 mg tablet TAKE 1 TABLET BY MOUTH DAILY active Not Available Not Available No t Available gabapenti n 100 mg capsule TAKE 1 CAPSULE BY MOUTH FEET THREE TIMES DAILY NEEDED FOR PAIN 01/23 completed Not Available Not Available Not Available ergocalci ferol (vitamin D2) 1,250 mcg (50,000 unit) capsule TAKE 1 CAPSULE BY MOUTH EVERY 14 DAYS active Not Available Not Available No t Available nystatin 100,000 unit/gram topical powder APPLY TO THE AFFECTED AREA(S) BY TOPICAL ROUTE 2 TIMES PER DAY 02/14 completed Not Available Not Available Not Available epinephri ne 0.3 mg/0.3 mL injection , auto-inje ctor ADMINIST ER 0.3 ML IN THE MUSCLE 1 TIME NEEDED FOR ANAPHYLA XIS active Not Available Not Available No t Available ibuprofen 600 mg tablet 03/05 completed Not Available Not Available Not Available cefuroxim e axetil 500 mg tablet 03/05 completed Not Available Not Available Not Available levofloxa paul 500 mg tablet 03/05 completed Not Available Not Available Not Available methylpre dnisolone 4 mg tablets in a dose pack 01/23 completed Not Available Not Available Not Available albuterol sulfate HFA 90 mcg/actua tion aerosol inhaler INHALE 2 PUFFS BY MOUTH EVERY 4 HOURS active Not Available Not Available No t Available methimazo le 10 mg tablet Take 1 tablet every day by oral route. 08/09 completed Not Available Not Available Not Available cefdinir 300 mg capsule TAKE 1 CAPSULE BY MOUTH EVERY 12 HOURS 01/23 completed Not Available Not Available Not Available fluticaso ne propionat e 50 mcg/actua tion nasal spray,[employer] [place] 1 spray every day by intranas al route. active Not Available Not Available No t Available dicyclomi ne 10 mg capsule TAKE 1 CAPSULE BY MOUTH TWICE DAILY DIRECTED 01/23 completed Not Available Not Available Not Available loratadin e 10 mg tablet TAKE 1 TABLET BY MOUTH DAILY active Not Available Not Available No t Available amoxicill in 875 mg-potass ium clavulana te 125 mg tablet Take 1 tablet every 12 hours by oral route. 03/05 completed Not Available Not Available Not Available neomycin 3.5 mg/g-poly myxin B 10,000 unit/g-de xameth 0.1 % eye oint APPLY A SMALL AMOUNT TO EYE EVERY NIGHT AT BEDTIME active Not Available Not Available No t Available azithromy paul 500 mg tablet TAKE 1 TABLET BY MOUTH EVERY DAY FOR 5 DAYS 01/23 completed Not Available Not Available Not Available nitrofura ntoin monohydra te/macroc rystals 100 mg capsule 03/05 completed Not Available Not Available Not Available hydrochlo rothiazid e one tablet every day 07/07 completed Not Available Not Available Not Available hydrochlo rothiazid e 12.5 mg tablet Take 1 tablet every day by oral route. 01/19 completed Not Available Not Available Not Available cholecalc iferol (vitamin D3) 50 mcg (2,000 unit) capsule TAKE ONE CAPSULE DAILY active Not Available Not Available No t Available Suprep Bowel Prep Kit 17.5 gram-3.13 gram-1.6 gram oral solution Take 300 mL by oral route for 1 day. 07/07 completed Not Available Not Available Not Available Virtussin AC 10 mg-100 mg/5 mL oral liquid 03/05 completed Not Available Not Available Not Available ID NOW COVID-19 Test Kit TEST DIRECTED 05/22 completed Not Available Not Available Not Available Vitals Date Recorded Body height Body mass index (BMI) Body weight Heart rate Respiratory rate Systolic blood pressure Diastolic blood pressure Provider Name and Address Organization Details Last Updated DateTime 4 157.48 cm 34.6 kg/m2 52137.9 6 g 76 /min 18 /min 126 mm[Hg] 74 mm[Hg] Zaida Teixeira [place] [facility] 4 13:42:02 Date Recorded Body height Pain severity - 0-10 verbal numeric rating [Score] - Reported Body mass index (BMI) Body weight Body temperature Heart rate Systolic blood pressure Diastolic blood pressure Provider Name and Address Organization Details Last Updated DateTime 4 157.48 cm 0 35.5 kg/m2 02660.6 4 g 97.3 [degF] 81 /min 137 mm[Hg] 77 mm[Hg] Laurel Fam MA [facility] 4 16:08:15 Date Recorded Body height Body mass index (BMI) Body weight Heart rate Systolic blood pressure Diastolic blood pressure Provider Name and Address Organization Details Last Updated DateTime 4 157.48 cm 36.1 kg/m2 62556.5 g 77 /min 120 mm[Hg] 78 mm[Hg] Zaida Teixeira MA [facility] 4 16:43:19 Date Recorded Body height Body mass index (BMI) Body weight Heart rate Systolic blood pressure Diastolic blood pressure Provider Name and Address Organization Details Last Updated DateTime 4 157.48 cm 35.6 kg/m2 02331.1 1 g 73 /min 135 mm[Hg] 79 mm[Hg] Zaida Teixeira MA [facility] 4 14:47:44 Social History Question Answer Notes LastModified by Organizat ion Details LastModified Time Tobacco Smoking Status Never Smoker Zaida Teixeira MA [facility] 11/09/2017 15:31:39 Do You Have An Advance Directive? No Information not available 02/23/2024 What Is Your Level Of Alcohol Consumption? None Information not available 08/06/2022 What Is Your Level Of Caffeine Consumption? None Information not available 08/06/2022 In The 14 Days Before Symptom Onset, Have You Had Close Contact With A Laboratory-confir med COVID-19 While That Case Was Ill? No Information not available 02/23/2024 In The 14 Days Before Symptom Onset, Have You Had Close Contact With A Person Who Is Under Investigation For COVID-19 While That Person Was Ill? No Information not available 02/23/2024 Have You Been To An Area Known To Be High Risk For COVID-19? No Information not available 02/23/2024 Do You Or Have You Ever Used E-cigarettes Or Vape? Never Used Electronic Cigarettes Information not available 06/11/2020 Have You Ever [facility] That You Ought To Cut Down On Your Drinking Or Drug Use No [email or web address] Information not available 01/31/2018 Have People Annoyed You By Critizing Your Drinking Or Drug Use No [email or web address] Information not available 01/31/2018 Have You Ever [facility] Bad Or Guility About Your Drinking Or Drug Use No [email or web address] Information not available 01/31/2018 Have You Ever Had A Drink Or Used Drugs First Thing In The Morning To Steady Your Nerves Or To Get Rid Of A Hangover No [email or web address] Information no t available 01/31/2018 Do You Have A Medical Power Of Research Manager? No Information not available 02/23/2024 What Was The Date Of Your Most Recent Tobacco Screening? 04/17/2024 Information not available 04/17/2024 Do You Feel Stressed (tense, Restless, Nervous, Or Anxious, Or Unable To Sleep At Night)? [id number] Information not available 08/06/2022 Do You Use Any Illicit Or Recreational Drugs? No Information not available 08/06/2022 Has Tobacco Cessation Counseling Been Provided? No Information not available 08/06/2022 Do You Or Have You Ever Used Any Other Forms Of Tobacco Or Nicotine? No Information not available 08/06/2022 Sex: Unknown Functional Status None recorded. Mental Status None recorded. Family History Relationship Description Onset Age of this Age Resolved Age Notes LastModified by Organization Details LastModified Time Father Heart disease [email or web address] Not available 01/23 14:51:02 Father Bypass graft [email or web address] Not jewels ilable 01/24/2024 14:51:11 Medical History Condition Response Coronary Artery Disease N Other N High Blood Pressure Y Atrial Fibrillation N Kidney or Bladder Problems N Thyroid Problems N GI Problems Y Depression N COPD N Blood Clots N Skin Problems Y Anemia N Heart Attack ([place]) N Anxiety Disorder N Diabetes N Muscle, Joint, or Bone Problems N Seizures/Epilepsy N Acid Reflux (GERD) Y Cancer N Stroke N Asthma N Allergies High Cholesterol N Hepatitis N Liver Disease N Headaches Y Hypertension Y Osteoporosis N Heart Failure N Gynecological HistoryNo gynecological history recorded. Obstetrics History GPAL:G 0 P 0 0 0 0 Past Encounters Encounter ID Performer Location Encounter Start Date Encounter Closed Date Diagnosis/Indication Diagnosis SNOMED-CT Code Diagnosis ICD10 Code Diagnosis Note [id number] Petros Galdamez MD [facility] (Adult Med) [address] [place] [address] 11/09/2017 15:04:32 11/12/2017 12:12:37 Adult health examination 684128839 Z00.00 Allergic rhinitis 109546 04 J30.9 [id number] Petros Galdamez MD [facility] (Adult Med) [address] [place] [address] 12/13/2017 10:34:28 12/13/2017 12:47:29 Hyperthyroidism 74391819 E05.90 Essential hypertension 38503692 I10 [id number] Daniel Lopez MD [facility] [address] [place] [address] 01/13/2018 09:52:52 01/17/2018 15:25:29 Sprain, ankle joint, lateral 839073467 S93.491A Right Closed fra cture of navicular bone of foot 87361533 S92.251A Closed fra cture of calcaneus 20043570 S92.001A Closed fra cture of cuboid bone of right foot 1977400099 2646317 S92.211A OOW [id number] Petros Galdamez MD [facility] (Adult Med) [address] [place] [address] 01/31/2018 16:40:02 02/02/2018 16:46:51 Fracture of foot 28219357 S92.901D Hyperthyroidism 99731247 E05.90 Essential hypertension 53130236 I10 Allergic rhinitis 748494 04 J30.9 [id number] Daniel Lopez MD [facility] [address] [place] [address] 2 02/03/2018 10:36:30 02/07/2018 15:39:53 Fracture of foot 25186816 S92.901D DOI 01/07/2018 Closed fra cture of calcaneus 42130339 S92.001D avulsion at calc-cuboi d jt [id number] Petros Galdamez MD [facility] (Adult Med) [address] [place] [address] 04/11/2018 12:18:40 04/11/2018 14:44:01 Obesity 895659736 E66.9 Screening for malignant neoplasm of colon 141993550 Z12.11 Essential hypertension 40214012 I10 Hyperthyroidism 13347424 E05.90 Low back pain 657111326 M54.5 Abdominal pain 47892110 R10.9 Disorder o f urinary bladder 73945619 N32.9 [id number] Brennon Koenig MD [facility] [address] [place] [address] 2 04/20/2018 14:06:54 04/20/2018 15:35:59 Cystocele 263958153 N81.10 [id number] Daniel Lopez MD [facility] [address] [place] [address] 2 05/02/2018 14:05:22 05/04/2018 12:16:45 Fracture of foot 97196457 S92.901D DOI 01/07/2018 Calc-cuboi d jt avulsion [id number] Petros Galdamez MD [facility] (Adult Med) [address] [place] [address] 05/09/2018 16:32:05 05/10/2018 12:27:16 Hyperthyroidism 81866992 E05.90 Essential hypertension 33429645 I10 Allergic rhinitis 502362 04 J30.9 [id number] Chau Pearson MD [facility] [address] [place] [address] 2 07/07/2018 15:15:50 07/08/2018 08:17:34 Diverticulitis of colon 872329615 K57.32 [id number] Brennon Koenig MD [facility] [address] [place] [address] 07/20/2018 10:14:37 07/21/2018 12:17:36 Urinary incontinence 766221353 R32 [id number] Daniel Lopez MD [facility] [address] [place] [address] 2 08/04/2018 10:09:20 08/05/2018 08:37:10 Fracture of foot 83561094 S92.901D DOI 01/07/2018 Calc-cuboi d jt avulsion RTC prn, no restrictio ns [id number] Petros Galdamez MD [facility] (Adult Med) [address] [place] [address] 08/09/2018 10:14:58 08/09/2018 12:16:19 Hyperthyroidism 15746484 E05.90 Essential hypertension 69042698 I10 Allergic rhinitis 668673 04 J30.9 Fracture of foot 9581628 5 S92.901D Blister 261860471 R23.8 Eczema 64433014 L30.9 Sinusitis 33995877 J32.9 [id number] Petros Galdamez MD [facility] (Adult Med) [address] [place] [address] 08/16/2018 16:32:08 08/16/2018 16:51:49 Allergic reaction 711426307 T78.40XA [id number] Petros Galdamez MD [facility] (Adult Med) [address] [place] [address] 08/16/2018 17:05:29 08/17/2018 08:27:15 Allergic reaction 630369841 T78.40XA Consider Shingles. [id number] Petros Galdamez MD [facility] (Adult Med) [address] [place] [address] 08/25/2018 15:47:13 08/25/2018 17:04:53 Urticaria 340597498 L50.9 Candidiasis of skin 4988 3006 B37.2 Hyperthyroidism 02255702 E05.90 Essential hypertension 42722050 I10 [id number] Petros Galdamez MD [facility] (Adult Med) [address] [place] [address] 09/05/2018 09:58:59 09/06/2018 11:38:51 Hyperthyroidism 11479456 E05.90 Essential hypertension 64676504 I10 Sinusitis 38372729 J32.9 Allergic rhinitis 829170 04 J30.9 [id number] Petros Galdamez MD [facility] (Adult Med) [address] [place] [address] 11/04/2018 13:48:15 11/04/2018 15:16:23 Essential hypertension 11774861 I10 Screening mammography 24 400404 Z12.31 Hyperthyroidism 79103513 E05.90 Allergic rhinitis 969413 04 J30.9 [id number] Petros Galdamez MD [facility] (Adult Med) [address] [place] [address] 01/10/2019 15:46:48 01/11/2019 08:30:40 Hypokalemia 25085658 E87.6 Screening mammography 24 802598 Z12.31 Thyroid nodule 391741103 E04.1 [id number] Sha Salomon MD [facility] [address] [place] [address] 01/19/2019 13:19:32 01/31/2019 09:56:55 Thyroid nodule 774612242 E04.1 will reevaluate thyroid Acute sinusitis 31614948 J01.90 [id number] Sha Salomon MD [facility] [address] [place] [address] 02/02/2019 15:38:38 03/02/2019 13:42:48 Thyroid nodule 731204115 E04.1 will reevaluate thyroid in three months Chronic rhinitis 7130047 6 J31.0 Chronic laryngitis 34482 006 J37.0 [id number] Petros Galdamez MD [facility] (Adult Med) [address] [place] [address] 03/14/2019 10:42:35 03/14/2019 13:51:12 Influenza vaccination declined 175288675 Z28.21 Keloid scar 40199558 L91 .0 Essential hypertension 74692173 I10 Hyperthyroidism 05262420 E05.90 [id number] Sha Salomon MD [facility] [address] [place] [address] 05/04/2019 13:52:36 05/08/2019 12:19:24 Thyroid nodule 832344125 E04.1 will reevaluate thyroid in three months repeat us will call with results Acute sinusitis 70246973 J01.90 [id number] Petros Galdamez MD [facility] (Adult Med) [address] [place] [address] 05/08/2019 14:41:17 05/09/2019 10:37:20 Hypokalemia 08875612 E87.6 Essential hypertension 81906066 I10 Hyperthyroidism 84379273 E05.90 [id number] Petros Galdamez MD [facility] (Adult Med) [address] [place] [address] 08/21/2019 10:36:06 08/21/2019 13:53:56 Sciatica 37375204 M54.30 Essential hypertension 63808326 I10 Hyperthyroidism 88299319 E05.90 Allergic rhinitis 833350 04 J30.9 [id number] Petros Galdamez MD [facility] (Adult Med) [address] [place] [address] 10/03/2019 14:58:32 10/10/2019 08:36:20 Urticaria 286016960 L50.9 Pharyngitis 969832975 J0 2.9 Essential hypertension 23162428 I10 Hyperthyroidism 33053087 E05.90 [id number] Petros Galdamez MD [facility] (Adult Med) [address] [place] [address] 10/23/2019 10:31:09 10/23/2019 16:57:42 Pharyngitis 958988520 J02.9 Essential hypertension 47011831 I10 Hyperthyroidism 38456710 E05.90 Allergic rhinitis 520782 04 J30.9 [id number] Petros Galdamez MD [facility] (Adult Med) [address] [place] [address] 11/07/2019 14:52:10 11/08/2019 11:23:17 Soft tissue lesion of lower leg and ankle 619100101 M79.9 Essential hypertension 79754002 I10 Hyperthyroidism 95936927 E05.90 [id number] Petros Galdamez MD [facility] (Adult Med) [address] [place] [address] 11/14/2019 14:35:03 11/15/2019 10:48:06 Cellulitis 893989529 L03.90 Essential hypertension 37559166 I10 Hyperthyroidism 57062274 E05.90 Allergic rhinitis 157502 04 J30.9 [id number] Awilda Ghosh FP ([facility]) [address] [place] [address] 11/29/2019 09:00:13 11/30/2019 09:14:34 Dermatofibroma 823867615 D23.9 Keloid scar 58206491 L91 .0 [id number] Petros Galdamez MD [facility] (Adult Med) [address] [facility] [place] [address] 01/02/2020 15:05:13 01/03/2020 23:33:25 Goiter 4088896 E04.9 [id number] Petros Galdamez MD [facility] (Adult Med) [address] [place] [address] 02/12/2020 09:58:36 02/13/2020 08:59:38 Essential hypertension 22800011 I10 Chest pain 38647442 R07. 9 Chronic pharyngitis 1400 04 J31.2 Screening mammography 24 967270 Z12.31 Goiter 3076464 E04.9 [id number] Sha Salomon MD [facility] [address] [place] [address] 03/05/2020 14:24:53 03/11/2020 08:12:29 Acute sinusitis 90993176 J01.90 Impacted c erumen in right ear 9470925455 389281 H61.21 Chronic pharyngitis 1400 04 J31.2 pt to follow back for scope if not improving [id number] Petros Galdamez MD [facility] (Adult Med) [address] [place] [address] 03/05/2020 11:07:31 03/05/2020 15:39:31 Essential hypertension 10049333 I10 Chest pain 16651023 R07. 9 Hyperthyroidism 16759598 E05.90 [id number] Sha Salomon MD [facility] [address] [place] [address] 03/28/2020 14:59:21 03/28/2020 16:44:25 Sleep apnea 34054517 G47.30 [id number] Petros Galdamez MD [facility] (Adult Med) [address] [place] [address] 06/11/2020 12:02:44 06/12/2020 11:06:45 Abnormality of nail of toe 225214088 L60.8 Essential hypertension 95832944 I10 Hyperthyroidism 96238268 E05.90 [id number] Petros Galdamez MD [facility] (Adult Med) [address] [place] [address] 08/06/2020 10:32:19 08/07/2020 17:35:42 Hypokalemia 52434619 E87.6 Essential hypertension 76957307 I10 Allergic rhinitis 191407 04 J30.9 Hypothyroidism 91507204 E03.9 TSH 5.68 [id number] Petros Galdamez MD [facility] (Adult Med) [address] [place] [address] 09/30/2020 12:41:58 10/01/2020 14:16:42 Low back pain 456522932 M54.5 Reactive a irway disease 3836803595 06 J45.909 Otitis media 63302913 H6 6.93 Vertigo 268392258 R42 [id number] Sha Salomon MD [facility] [address] [place] [address] 10/08/2020 12:21:44 10/09/2020 13:14:19 Chronic rhinitis 37595746 J31.0 continue Flonase Dysfunctio n of eustachian tube 00789851 H69.93 Obstructiv e sleep apnea syndrome 88546210 G47.33 [id number] Petros Galdamez MD [facility] (Adult Med) [address] [place] [address] 10/15/2020 13:04:26 10/16/2020 12:39:13 Conjunctivitis 5218973 H10.9 [id number] PASCUAL MICHELE NP [facility] [address] [place] [address] 10/16/2020 15:06:07 10/21/2020 11:33:25 Obstructive sleep apnea syndrome 88218912 G47.33 05/14/20 Home sleep apnea testing: RDI 19.1/hr, lowest O2 sat 85%. Will order Cpap through [facility]. Encouraged to use cpap every night. Instructed pt to contact DME for any issues with mask fit, comfort, or machine related issue. F/U in 9 weeks to assess compliance and efficacy. Sleep hygiene discussed Dyspnea 764962724 R06.00 MDI teaching, continue albuterol as needed PFT Essential hypertension 79391746 I10 Managed in primary care. Continue to monitor blood pressure. Encourage low salt diet and exercise. Gastroesop hageal reflux disease 784487507 K21.9 -Educated pt on importance of dietary modificati ons: Raise the head of the bed, avoid acid-reflu x inducing foods, avoid late meals. Body mass index 30+ - obesity 368530981 Z68.36 Encouraged -Choosing low-fat, low-calori e foods -Eating smaller portions -Drinking water instead of sugary drinks -Being physically active Ex-cigarette smoker 2810 31498 Z87.586 [id number] Sha Salomon MD [facility] [address] [place] [address] 10/28/2020 11:57:09 10/30/2020 08:50:34 Thyroid nodule 166269371 E04.1 will reevaluate thyroid in three months repeat us will call with results Impacted c erumen in right ear 1783749161 251079 H61.21 ear cleared [id number] PASCUAL MICHELE NP [facility] [address] [place] [address] 12/26/2020 16:25:17 12/31/2020 13:18:33 Obstructive sleep apnea syndrome 38337981 G47.33 Cpap compliance report - days worn03/20 days greater than 4 hoursSet pressure of 5-15 cm H2OAHI: 0.8pressur e: 95th - 12.1, max: 12.7Leak- 95th percentile : 9.3 , Max: 21.6benefi ts from use, encouraged to increase usage Body mass index 30+ - obesity 127559524 Z68.36 Encouraged -Choosing low-fat, low-calori e foods -Eating smaller portions -Drinking water instead of sugary drinks -Being physically active Dyspnea 366311863 R06.00 MDI teaching, continue albuterol as needed PFT Essential hypertension 81836618 I10 Managed in primary care. Continue to monitor blood pressure. Encourage low salt diet and exercise. Gastroesop hageal reflux disease 560660051 K21.9 -Educated pt on importance of dietary modificati ons: Raise the head of the bed, avoid acid-reflu x inducing foods, avoid late meals. Ex-cigarette smoker 2809 Z87.891 Seasonal allergy 2236412 04 J30.2 Allergen IGEmonterl ukast [id number] Petros Galdamez MD [facility] (Adult Med) [address] [place] [address] 02/17/2021 09:46:20 02/18/2021 11:39:37 Sciatica 69860420 M54.30 Previous X ray show just arthritis Essential hypertension 54871777 I10 Hyperthyroidism 32734817 E05.90 Hypothyroidism 40617551 E03.9 TSH 5.68 Bleeding from nose 54283 6005 R04.0 Allergic rhinitis 034275 04 J30.9 [id number] PASCUAL MICHELE NP [facility] [address] [address] 02/27/2021 15:54:37 02/28/2021 10:01:49 Obstructive sleep apnea syndrome 34213514 G47.33 Cpap compliance report - days worn days greater than 4 hours, 70% Set pressure of 5-15 cm H2O AHI: 1.3 Leak- 95th percentile : 12.8 , Max: 17.5 Pressure- 95th%-13.3 , Max: 14.0 Continue nightly use Compliant and benifiting from use Body mass index 30+ - obesity 868920067 Z68.36 Dyspnea 291129335 R06.00 MDI teaching, continue albuterol as neededReor kahlil PFT Essential hypertension 50354608 I10 Managed in primary care. Continue to monitor blood pressure. Encourage low salt diet and exercise. Gastroesop hageal reflux disease 332946024 K21.9 -Educated pt on importance of dietary modificati ons: Raise the head of the bed, avoid acid-reflu x inducing foods, avoid late meals. Ex-cigarette smoker 2809 Z87.891 stopped smoking 1995, smoker for 26 years Seasonal allergy 4898279 04 J30.2 Environmental allergy 42 7288931 T78.49XA [id number] PASCUAL MICHELE NP [facility] [address] [place] [address] 05/22/2021 15:47:44 05/23/2021 07:45:32 Obstructive sleep apnea syndrome 40564837 G47.33 Cpap compliance report 07/11 - / 0 days worn days greater than 4 hours, 80% Set pressure of 5-15 cm H2O AHI: 0.8 Leak- 95th percentile : 8.1 , Max: 20.5 Pressure- 95th%-12.6 , Max: 13.5Compli ant and benifiting from use, in need of new headgrear. Humidifica tion adjusted from 2 to 4 Dyspnea 670558505 R06.00 MDI teaching, continue albuterol as needed. Using once a week on some weeks. Does not interfer with ADLsPFT not completed. Will reorder Body mass index 30+ - obesity 693769215 Z68.36 Essential hypertension 45771354 I10 Gastroesop hageal reflux disease 324059719 K21.9 Omeprazole , mostly controlled Ex-cigarette smoker 2810 07929 Z87.891 stopped smoking 1995, smoker for 26 years Environmental allergy 42 9195976 T78.49XA Seasonal allergy 6428928 04 J30.2 Continue cetirizine [id number] Petros Galdamez MD [facility] (Adult Med) [address] [place] [address] 05/22/2021 10:36:38 05/25/2021 22:29:01 Allergic rhinitis 89299435 J30.9 Essential hypertension 38794180 I10 Fatigue 47754431 R53.83 Muscle pain 83544025 M79 .10 [id number] Petros Galdamez MD [facility] (Adult Med) [address] [place] [address] 09/12/2021 09:37:23 09/15/2021 13:52:51 History of multiple allergies 813640606 Z91.018 Upper resp iratory infection 85542140 J06.9 [id number] Petros Galdamez MD [facility] (Adult Med) [address] [place] [address] 02/09/2022 14:02:49 02/10/2022 10:39:02 Hiatal hernia 23021522 K44.9 Allergic rhinitis 533927 04 J30.9 Essential hypertension 92735221 I10 Macromastia 955206316 N6 2 Otitis media 11016007 H6 6.93 ? [id number] Veronika Rodarte RN [facility] (Adult/Fa m Med) [address] [place] [address] 05/07/2022 13:11:52 05/22/2022 03:46:55 Screening for disorder 790668387 Z13.9 [id number] Petros Galdamez MD [facility] (Adult Med) [address] [place] [address] 07/20/2022 09:52:38 07/21/2022 08:32:44 Prediabetes 167198164 R73.03 Essential hypertension 30538454 I10 Hyperthyroidism 65549971 E05.90 [id number] Petros Galdamez MD [facility] (Adult Med) [address] [place] [address] 07/31/2022 14:59:54 08/03/2022 10:18:35 Obesity 457920151 E66.9 Screening mammography 24 541407 Z12.31 Essential hypertension 04664173 I10 Hypokalemia 60257315 E87 .6 Cerebrovas cular accident 396831116 I63.9 Hyperthyroidism 08445223 E05.90 [id number] Petros Galdamez MD [facility] (Adult Med) [address] [place] [address] 08/06/2022 12:05:43 08/10/2022 14:10:09 Essential hypertension 99592615 I10 Morbid obesity 111313524 E66.01 Hyperthyroidism 46756939 E05.90 [id number] Petros Galdamez MD [facility] (Adult Med) [address] [place] [address] 09/11/2022 11:27:12 09/14/2022 12:56:08 Allergic conjunctivitis 311414640 H10.13 Allergic rhinitis 176535 04 J30.9 Essential hypertension 14576203 I10 Hyperthyroidism 44803031 E05.90 [id number] Petros Galdamez MD [facility] (Adult Med) [address] [place] [address] 10/08/2022 09:41:59 10/12/2022 14:52:37 Essential hypertension 71603415 I10 counselled . Cerebrovas cular accident 190656061 I63.9 Injury of lower leg 1256 09708 S89.92XA Hyperthyroidism 92154269 E05.90 [id number] Petros Galdamez MD [facility] (Adult Med) [address] [place] [address] 11/19/2022 09:11:17 11/20/2022 11:50:19 Essential hypertension 07477075 I10 counselled . Pain in le ft lower limb 116061656 M79.605 Cerebrovas cular accident 123797845 I63.9 Hyperthyroidism 24234495 E05.90 [id number] Petros Galdamez MD [facility] (Adult Med) [address] [place] [address] 11/27/2022 15:47:23 12/01/2022 09:39:08 Essential hypertension 03835817 I10 counselled . Pain in lower limb 98957 006 M79.669 Hyperthyroidism 30478813 E05.90 Cerebrovas cular accident 682008920 I63.9 [id number] Petros Galdamez MD [facility] (Adult Med) [address] [place] [address] 04/23/2023 10:47:09 04/27/2023 09:22:23 Essential hypertension 57424474 I10 counselled . Headache 32576914 R51.9 Foot callus 322933398 L8 4 Gastroesop hageal reflux disease 502991592 K21.9 Pain in lower limb 28112 006 M79.232 [id number] Petros Galdamez MD [facility] (Adult Med) [address] [place] [address] 06/22/2023 10:34:39 06/23/2023 11:05:25 Acute low back pain 624089348 M54.50 Cerebrovas cular accident 645991205 I63.9 Essential hypertension 78077224 I10 counselled . [id number] Petros Galdamez MD [facility] (Adult Med) [address] [place] [address] 07/12/2023 11:50:09 07/13/2023 09:05:51 Otitis media 07474394 H66.93 ? Foot pain 02053383 M79.6 73 Upper resp iratory infection 82046601 J06.9 Essential hypertension 98850464 I10 counselled . [id number] Petros Galdamez MD [facility] (Adult Med) [address] [place] [address] 07/26/2023 15:02:47 07/27/2023 12:08:49 Essential hypertension 64285249 I10 counselled . Morbid obesity 799210500 E66.01 counsellin g. Persistent cough 2016567 02 R05.3 Cough 04889014 R05.9 Dysphagia 52334358 R13.1 0 Impacted cerumen 3940200 6 H61.20 [id number] Petros Galdamez MD [facility] (Adult Med) [address] [place] [address] 10/15/2023 15:10:38 10/18/2023 11:36:08 Essential hypertension 16316191 I10 counselled . Obesity 699431179 E66.9 Neuropathy 434466814 G62 .9 Screening for osteoporosis 347279693 Z13.820 Sinusitis 86667863 J32.9 Candidal intertrigo 2661 40300 B37.2 [id number] SIL DILLON DPM [facility] [address] [place] [address] 10/20/2023 16:46:42 10/28/2023 09:57:26 Foot callus 788920701 L84 Acquired h ammer toe of left foot 4083840850 960038 M20.42 Metatarsalgia 40760836 M 77.42 [id number] Petros Galdamez MD [facility] (Adult Med) [address] [place] [address] 12/17/2023 16:39:27 12/20/2023 10:24:19 Essential hypertension 31582680 I10 counselled . Cerebrovas cular accident 300621939 I63.9 Allergic rhinitis 503099 04 J30.9 Hyperthyroidism 94984467 E05.90 Serous otitis media 8032 7007 H65.93 Macromastia 864744304 N6 2 [id number] David Khan MD [facility] [place] [address] [place] [address] 01/24/2024 14:28:12 01/25/2024 08:50:19 History of cerebrovascular accident 638116101 Z86.73 Essential hypertension 50831376 I10 Hyperlipidemia 15863290 E78.5 Chest pain 81605311 R07. 9 Hypothyroidism 03619238 E03.9 [id number] Petros Galdamez MD [facility] (Adult Med) [address] [place] [address] 02/15/2024 11:39:07 02/16/2024 10:11:15 Essential hypertension 13553447 I10 counselled . Gastroesop hageal reflux disease 988639714 K21.9 Epiphora o f left eye due to tear drainage disorder 9768152778 08724 H04.222 Chronic pharyngitis 1400 04 J31.2 Cerebrovas cular accident 450437815 I63.9 [id number] Estee Aldrich MD [facility] [address] [address] 02/23/2024 14:16:07 02/23/2024 15:38:35 Presbyopia 03615671 H52.4 Allergic conjunctivitis 174887297 H10.13 Nuclear se nile cataract 903195820 H25.13 [id number] Petros Galdamez MD [facility] (Adult Med) [address] [place] [address] 03/20/2024 10:32:40 03/22/2024 09:45:28 Essential hypertension 92932521 I10 counselled . Bronchitis 55593428 J40 Cerebrovas cular accident 871504655 I63.9 [id number] Petros Galdamez MD [facility] (Adult Med) [address] [place] [address] 03/27/2024 13:11:09 03/28/2024 12:05:01 Essential hypertension 94319541 I10 counselled . Dyspnea on exertion 6084 5006 R06.09 Cerebrovas cular accident 120820101 I63.9 [id number] Estee Aldrich MD [facility] [address] [place] [address] 04/10/2024 15:51:32 04/11/2024 09:13:15 Keratoconjunctivitis sicca (excluding Sj gren syndrome) 360530005 H16.566 [id number] Petros Galdamez MD [facility] (Adult Med) [address] [place] [address] 04/17/2024 16:35:15 04/18/2024 12:00:42 Essential hypertension 91273138 I10 counselled . Pulmonary embolism 25251 003 I26.99 Need to rule out. [id number] Petros Galdamez MD [facility] (Adult Med) [address] [place] [address] 04/28/2024 13:51:44 05/01/2024 09:05:09 Essential hypertension 28116527 I10 counselled . Allergic rhinitis 038234 04 J30.9 Bronchitis 46472669 J40 Health Concerns Section Related Observation LastModified by Organization Detai ls LastModified Time None Recorded Concern Status LastModified by Organization Details LastModified Time None Recorded Advance Directives Directive N: Payers Encounter Date Sequence Insurance Name Policy Number Policy Pete Covered Member ID Pete Member ID Guarantor Name 03/20/2024 2 [facility] (MEDICARE REPLACEMENT/ ADVANTAGE - HMO) [id number] Yu Israel [id number] Yu Israel 03/20/2024 1 [employer] (HMO) [id number] Yu Israel [id number] Yu Israel 03/27/2024 2 [facility] (MEDICARE REPLACEMENT/ ADVANTAGE - HMO) [id number] Yu Israel [id number] Yu Israel 03/27/2024 1 [employer] (HMO) [id number] Yu Israel [id number] Yu Israel 04/10/2024 2 [facility] (MEDICARE REPLACEMENT/ ADVANTAGE - PPO) [id number] Yu Israel [id number] Yu Israel 04/10/2024 1 [employer] (HMO) [id number] Yu Israel [id number] Yu Israel 04/17/2024 2 [facility] (MEDICARE REPLACEMENT/ ADVANTAGE - HMO) [id number] Yu Israel [id number] Yu Israel 04/17/2024 1 [employer] (HMO) [id number] Yu Israel [id number] Yu Israel 04/28/2024 2 [facility] (MEDICARE REPLACEMENT/ ADVANTAGE - HMO) [id number] Yu Israel [id number] Yu Israel 04/28/2024 1 [employer] (HMO) [id number] Yu Israel [id number] Yu [place] Notes Date Note Type Note Provider Name and Address Organization Details Recorded Time 03/20/2024 text/html Phone visit. The patient complaints of having a bad cough for approximately 1 week now. She had a lot of congestion early on but now is left with just a bad cough. She tested for COVID and it was negative. There is no chills of fever. There is no diarrhea or vomiting. Petros Galdamez MD Attn: Accounting[address] [place], [address], [facility] [place] 03/20/2024 22:45:28 03/27/2024 text/html The patient is calling in today because she states that she still has shortness of breath and cough. The medication I gave her did not work. She says her neurologist thought that he heard something in her heart and she is concerned that it may be her heart that's causing the shortness of breath. Petros Galdamez MD Attn: Accounting,[address] [facility], [place], [address], [facility] [place] 03/27/2024 23:10:20 04/10/2024 text/html C/O alternating tearing and dryness in both eyes, with mild crusting in inner corner of both eyes.Some itching ..Eye did not get any better on Azelastine drops. . Estee Aldrich MD [address], [place], [address], [facility] 04/10/2024 17:03:47 04/17/2024 text/html 68 year old Afri can [place] female who has a history of developing rapid onset of shortness of breath on Wednesday. She became so short of breath that she called the ambulance and was then taken to the emergency room in [place]. She had a workup done and was diagnosed with bronchitis and placed on antibiotics and steroids. She states that she does not feel better after the three days of medications. She has shortness of breath and a non productive cough. There is no chills or fever or anything else to suggest an infection. She also states after investigation, that she had some pain in her left calf. Petros Galdamez MD Attn: Accounting[address] [place], [address], [facility] [place] 04/17/2024 17:41:16 04/28/2024 text/html Phone Visit. She is doing a little better. she is still coughing a lot though. she still has sob. she says she got another inhaler from the ER. she is at [facility] now. She asks to see a Lung Specialist, We have put it in. She is concerned because she has never had anything to last this long before. The Er showed an elevated BNP and suggested a 2D-Echo, but she just had one about 2 mo. ago. Petros Galdamez MD Attn: Accounting[address] [place], [address], [facility] [place] 04/29/2024 13:56:52 OBGyn Episode No OBEpisode recorded.
--- OUTSIDE RECORDS SUMMARY | 2024-08-08 17:41 | XMS_ITS | Encounter Summary ---
Author Organization [facility] Address [address] [place] [address] Care Team Providers Care Quilter Fixer Name Role Phone Petros Galdamez MD Primary Care Provider [phone] Petros Galdamez MD Primary Care Provider [phone] Reason for Visit * Reason Onset Date Comments POST-OP PROBLEM 12/27/2019 Constipation 12/27/2019 Encounter Details Date Type Department Care Team (Late st Contact Info) Description 12/27/2019 Telephone [facility] [address] [place] [id number] Van Tate Che, MD [address] [facility] [address] [place] [address] POST-OP PROBLEM; Constipation Social History Tobacco Use Types Packs/Day Years [...] encounter Miscellaneous Notes * Telephone Encounter - Van Tate Che, MD - 12/27/2019 1:19 PM CDT Patient called. She was straining to defecate. Asked her to use 3 colace a day, and can use milk of magnesia. To call me back if any issues. * Telephone Encounter - Anjali Jenkins - 12/27/2019 1:00 PM CDT Pt called in stating that she had surgery last and they gave her stool softener but she isvery constipated and in a lot of pain. She stated she thinks she still has stitches in but now she is just wiping blood when she goes to the bathroom. Pt callback# [phone] documented in this encounter Plan of Treatment Not on file documented as of this encounter Visit Diagnoses Not on filedocumented in this encounter Care Teams Quilter Fixer Relationship Specialty Start Date End Date Petros Galdamez MD PCP - General 04/24/19 03/22/23 Petros Galdamez MD [address] [place], [place] [id number] PCP - General Family Medicine 03/23/23 documented as of this encounter
--- OUTSIDE RECORDS SUMMARY | 2024-08-08 17:42 | XMS_ITS | Patient Health Summary ---
Author Organization [facility] Address [address] [place] [address] Care Team Providers Care [employer] Designer Name Role Phone Petros Galdamez MD Primary Care Provider [phone] Note from [facility],non-owned Affiliates and Associated Physician Practices is amultiple site organization consisting of ambulatory clinics and hospital sitesin [place], [place], [place] and [place]. This disclosure is being madepursuant to the Care Everywhere program and may not contain all information available regarding this patient. Last updated 18.[facility] Allergies * Adhesive Sensitivity(Skin Reactions,Rash) -Medium Criticality * Sulfamethoxazole W-Trimethoprim(Angioedema) -High Criticality * Nitrofurantoin(Headache) -Low Criticality Medications * Be aware that medications may not be up to date on this document. Alwaysverify current medications with the patient. * Vitamin D3 (CHOLECALCIFEROL) 50 MCG (1999) capsule(Started 07/08/2021) Take 1 (one) capsule by mouth once daily * hydroCHLOROthiazide (Hydrodiuril) 12.5 MG Take 1 (one) tablet by mouth once daily * fluticasone propionate (FLONASE) 50 MCG/ACT nasal spray(Started 01/05/2022) [place] 2 (two) sprays into each nostril once daily 5 refills by 01/05/2023 * albuterol HFA (PROVENTIL; VENTOLIN; PROAIR) 108 (90 Base) MCG/ACT inhaler (Started 01/05/2022) Inhale 2 (two) puffs by mouth every 4 hours as needed for Shortness of Breath, Wheezing or Cough Can also take 10-15 min prior to exercise 5 refills by 01/05/2023 * atorvastatin (Lipitor) 80 MG tablet(Started 07/28/2022) Take 1 (one) tablet by mouth at bedtime 3 refills by 07/28/2023 * aspirin (Aspirin) 81 MG chew tablet(Started 07/29/2022) Take 1 (one) tablet by mouth once daily 3 refills by 07/28/2023 * levothyroxine (Synthroid) 75 MCG tablet(Started 2022) Take 1 (one) tablet by mouth once daily * omeprazole (PriLOSEC) 20 MG capsule(Started 10/08/2022) Take 1 (one) capsule by mouth once daily As Directed. 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 03/21/2018 Vitamin D deficiency 03/18/2018 Hyperthyroidism 01/31/2018 Body mass index 33.0-33.9, adult 02/19/2017 Family history of coronary artery disease 2016 Chest pain 09/18/2012 Resolved Problems Problem Noted Date Diagnosed Date Resolved Date Midline cystocele 06/02/2018 01/12/2023 Nocturia 06/02/2018 01/12/2023 Urge incontinence 06/02/2018 01/12/2023 Dyspnea on exertion 02/19/2017 01/13/20 23 Labile essential hypertension 02/19/2017 01/12/2023 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 No 07/27/2022 Sex and Gender Information Value Date Recorded Sex Assigned at Female 03/10/2021 2:31 PM CDT Gender Identity Female 03/10/2021 2:31 PM CDT Sexual Orientation Straight 03/10/2021 2: 31 PM CDT Last Filed Vital Signs Vital Sign Reading Time Taken Comments Blood Pressure 132/74 07/13/2023 1:26 PM GRADALL OPERATOR Pulse 79 03/05/2023 8:17 AM CDT Temperature 36.1 C (96.9 F) 01/12/2023 11:42 AM CDT Respiratory Rate 12 03/05/2023 8:17 AM CDT Oxygen Saturation 100% 10/27/2022 6:50 PM CDT Inhaled Oxygen Concentration - - Weight 86.5 kg (190 lb 9.6 oz) 07/13/2023 1:26 P M GRADALL OPERATOR Height 157.5 cm (5' 2 ) 07/13/2023 1:26 PM GRADALL OPERATOR Body Mass Index 34.86 07/13/2023 1:26 PM GRADALL OPERATOR Procedures * MAMMO BILAT SCREENING W JOVANY(Performed 08/17/2023) Performed for Encounter for screening mammogram for malignant neoplasm of breast * MRI ANGIO BRAIN ARTERIAL WO CONT(Performed 03/23/2023) Performed for Aneurysm (HCC) * XR TIBIA FIBULA LEFT 2VW(Performed 10/27/2022) Performed for Acute left ankle pain * XR ANKLE LEFT 3VW OR MORE(Performed 10/27/2022) Performed for Acute left ankle pain * CARDIAC EKG ORDER(Performed 07/30/2022) * CARDIAC EKG ORDER(Performed 07/29/2022) * CARDIAC EKG ORDER(Performed 07/29/2022) * TYPE + SCREEN PANEL(Performed 07/28/2022) * TROPONIN I(Performed 07/28/2022) * PT-INR [facility](Performed 07/28/2022) * COMPREHENSIVE METABOLIC PANEL(Performed 07/28/2022) * CBC W AUTO DIFFERENTIAL(Performed 07/28/2022) * EKG 12-LEAD(Performed 07/28/2022) Performed for Weakness * CT BRAIN STROKE(Performed 07/28/2022) Performed for Weakness * GLUCOSE - POINT OF CARE(Performed 07/28/2022) * CT HEAD WO CONTRAST(Performed 07/28/2022) Performed for Facial weakness * MRI BRAIN WO CONTRAST(Performed 07/28/2022) Performed for Cerebrovascular accident (CVA), unspecified mechanism (HCC) * PHOSPHORUS BLOOD(Performed 07/28/2022) * MAGNESIUM BLOOD(Performed 07/28/2022) * CBC W/O DIFFERENTIAL(Performed 07/28/2022) * BASIC METABOLIC PANEL (CALCIUM TOTAL)(Performed 07/28/2022) * GLUCOSE - POINT OF CARE(Performed 07/27/2022) * BLOOD TYPE VERIFICATION(Performed 07/27/2022) * MAGNESIUM BLOOD(Performed 07/27/2022) * TROPONIN I(Performed 07/27/2022) * HEMOGLOBIN A1C(Performed 07/27/2022) * ECHO COMPLETE W BUBBLE STUDY(Performed 07/27/2022) Performed for Facial weakness * GLUCOSE - POINT OF CARE(Performed 07/27/2022) * PHOSPHORUS BLOOD(Performed 07/27/2022) * LIPID PROFILE(Performed 07/27/2022) * TROPONIN I(Performed 07/27/2022) * XR CHEST 1VW PORTABLE(Performed 07/27/2022) Performed for Facial weakness * EKG 12-LEAD(Performed 07/27/2022) Performed for Facial weakness * CT ANGIO BRAIN NECK STROKE(Performed 07/27/2022) Performed for Facial weakness * TYPE + SCREEN PANEL(Performed 07/27/2022) * TROPONIN I(Performed 07/27/2022) * PT-INR [facility](Performed 07/27/2022) * COMPREHENSIVE METABOLIC PANEL(Performed 07/27/2022) * CBC W AUTO DIFFERENTIAL(Performed 07/27/2022) * CREATININE - POCT INTERFACED(Performed 07/26/2022) * INR WHOLE BLOOD - POINT OF CARE (IP) STROKE(Performed 07/26/2022) * CT BRAIN STROKE(Performed 07/26/2022) Performed for Facial weakness * GLUCOSE - POINT OF CARE(Performed 07/26/2022) * NC LARYNGOSCOPY,FLEX FIBER,DIAGNOSTIC(Performed 08/05/2021) Performed for Dry throat, Sore throat, Hoarseness of voice * T3 FREE(Performed 06/12/2020) Performed for Hyperthyroidism * TSH(Performed 06/12/2020) Performed for Hyperthyroidism * T4 FREE(Performed 06/12/2020) Performed for Hyperthyroidism * CARDIAC EKG ORDER(Performed 03/25/2020) * NM MYOCARD PERF REST STRESS(Performed 03/14/2020) Performed for Chest pain, unspecified type * TSH(Performed 02/29/2020) * T4 FREE(Performed 02/29/2020) * PROC EKG IN CLINIC(Performed 02/27/2020) Performed for Chest pain, unspecified type * CARDIAC RHYTHM STRIP ORDER(Performed 12/27/2019) * CBC W AUTO DIFFERENTIAL(Performed 12/26/2019) Performed for Post-operative state * BASIC METABOLIC PANEL (CALCIUM TOTAL)(Performed 12/26/2019) Performed for Post-operative state * ENDOTRACHEAL TUBE NOTE(Performed 12/25/2019) * NC ANTER COLPORRHAPHY,BLAD/VAGINA(Performed 12/25/2019) Performed for Diagnosis unknown * BASIC METABOLIC PANEL (CALCIUM TOTAL)(Performed 12/20/2019) Performed for Pre-op testing * CBC W AUTO DIFFERENTIAL(Performed 12/20/2019) Performed for Pre-op testing * SARS-COV-2 (COVID-19) IN HOUSE(Performed 12/20/2019) Performed for Pre-op testing * T4 FREE(Performed 07/04/2019) Performed for Toxic thyroid nodule, Hyperthyroidism * TSH(Performed 07/04/2019) Performed for Toxic thyroid nodule, Hyperthyroidism * CBC W/O DIFFERENTIAL(Performed 04/24/2019) Performed for Preop examination * BASIC METABOLIC PANEL (CALCIUM TOTAL)(Performed 04/24/2019) Performed for Preop examination * NC ANAL/URINARY MUSCLE STUDY(Performed 01/17/2019) Performed for Midline cystocele, Vaginal vault prolapse, Nocturia, Urge incontinence * NC INTRAABDOMINAL PRESSURE TEST(Performed 01/17/2019) Performed for Midline cystocele, Vaginal vault prolapse, Nocturia, Urge incontinence * NC CYSTOMETROGRAM W/MAINT MECHANIC&UP(Performed 01/17/2019) Performed for Midline cystocele, Vaginal vault prolapse, Nocturia, Urge incontinence * NC CYSTOURETHROSCOPY(Performed 01/17/2019) Performed for Nocturia, Urge incontinence * CULTURE URINE COMPREHENSIVE(Performed 06/02/2018) Performed for Nocturia, Urge incontinence * NC INSERT NON-INDWELLING BLADDER(Performed 06/02/2018) Performed for Nocturia, Urge incontinence * URINALYSIS - POINT OF CARE(Performed 06/02/2018) Performed for Nocturia, Urge incontinence * CARDIAC EKG ORDER(Performed 09/22/2012) * CARDIAC RHYTHM STRIP ORDER(Performed 09/20/2012) * STRESS TEST LEXISCAN (NUCLEAR)(Performed 09/19/2012) Performed for Chest Pain * NM MYOCARD PERF REST STRESS(Performed 09/19/2012) * TROPONIN I(Performed 09/19/2012) Performed for Chest Pain * TROPONIN I(Performed 09/18/2012) Performed for Chest Pain * CT ANGIO CHEST PULM EMBOLISM(Performed 09/18/2012) Performed for Chest Pain * XR CHEST 1VW PORTABLE(Performed 09/18/2012) Performed for Chest Pain * PTT(Performed 09/18/2012) * PT-INR(Performed 09/18/2012) * D-DIMER(Performed 09/18/2012) * TROPONIN I(Performed 09/18/2012) * COMPREHENSIVE METABOLIC PANEL(Performed 09/18/2012) * CBC W AUTO DIFFERENTIAL(Performed 09/18/2012) * PULSE OXIMETRY, CONTINUOUS(Performed 09/18/2012) * EKG 12-LEAD(Performed 09/18/2012) Performed for Chest Pain Results * MAMMO BILAT SCREENING W JOVANY (08/17/2023 3:32 PM GRADALL OPERATOR) Anatomical Region Laterality Modality Breast Bilateral Mammography 08/26/2023 7:37 PM GRADALL OPERATOR Impressions 08/26/2023 7:40 PM GRADALL OPERATOR : No mammographic evidence of malignancy. RECOMMENDATION: Screening mammography in one year, pending no interval breast concerns. OVERALL ASSESSMENT: BI-RADS CATEGORY 1: NEGATIVE. > Interpreting Provider: Danay Wallace MD on 08/26/2023 7:40 PM Narrative 08/26/2023 7:40 PM GRADALL OPERATOR EXAMINATIONS: BILATERAL DIGITAL SCREENING MAMMOGRAM AND BILATERAL BREAST TOMOSYNTHESIS WITH CAD LOCATION: [facility] EXAM DATE: 08/17/2023 HISTORY: Screening. No reported family history of breast cancer. RISK ASSESSMENT CALCULATION: Not performed as tablets currently not available due to pending upgrade. COMPARISON: There are no prior mammograms available for comparison. Patient reports prior at [facility] in 2012. These are no longer available [...] Ordering Provider Unlisted MD ZOEY WHEELER * MRI ANGIO BRAIN ARTERIAL WO CONT (03/23/2023 12:17 PM CDT) Anatomical Region Laterality Modality Head Magnetic Resonan ce 03/23/2023 12:2 3 PM CDT Impressions 03/23/2023 12:29 PM CDT IMPRESSION: Slight irregularity along the medial margin of the supraclinoid internal carotid artery on the left likely representing the previously described 2 mm aneurysm. This measures between 2 and 3 mm. The remainder of the vasculature is unremarkable. > Interpreting Provider: Casey Christopher MD on 03/23/2023 12:29 PM Narrative 03/23/2023 12:29 PM CDT Procedure: MRI ANGIO BRAIN ARTERIAL WO CONT Exam Date: 03/23/2023 12:17 PM Location: [facility] INDICATION: Aneurysm TECHNIQUE: 3-D [id number] images were obtained through the brain. 3-D post processed MIP reformats were created and reviewed. FINDINGS: There are no old studies available for comparison purposes. The study is compared to an old CT angio brain report from July 2022 from [facility]. The petrous portions of the internal carotid arteries appear normal. There does appear to be some slight irregularity along the medial margin of the supraclinoid internal carotid artery on the left. This may represent a 2-3 mm aneurysm which was described on prior CT scan. The remainder of the cavernous and supraclinoid carotids appear normal. The A1 segments of the anterior cerebral arteries appear normal. The distal branches of the intracerebral arteries appear normal. The M1 segments of the middle cerebral arteries appear normal. The M2 and distal branches of the middle cerebral arteries appear normal. Intracranial portions of the vertebral arteries appear normal. Normal posterior inferior cerebellar arteries are noted. The basilar artery appears normal. The superior cerebellar and posterior cerebral arteries are normal. Patent bilateral posterior communicating arteries are noted. Procedure Note Casey Christopher MD - 03/23/2023 Procedure: MRI ANGIO BRAIN ARTERIAL WO CONT Exam Date: 03/23/2023 12:17PM Location: [facility] INDICATION: Aneurysm TECHNIQUE: 3-D [id number] images were obtained through the brain.3-D post processed MIP reformats were created and reviewed. FINDINGS: There are no old studies available for comparison purposes.The study is compared to an old CT angio brain report from July 2022from [facility]. The petrous portions of the internal carotid arteries appear normal.There does appear to be some slight irregularity along the medial margin ofthe supraclinoid internal carotid artery on the left. This may represent a2-3 mm aneurysm which was described on prior CT scan. The remainder of the cavernous and supraclinoid carotids appear normal. The A1 segments of the anterior cerebral arteries appear normal. Thedistal branches of the intracerebral arteries appear normal. The M1 segments of the middle cerebral arteries appear normal. The M2and distal branches of the middle cerebral arteries appear normal. Intracranial portions of the vertebral arteries appear normal. Normal posterior inferior cerebellar arteries are noted. The basilar artery appears normal. The superior cerebellar and posterior cerebral arteriesare normal. Patent bilateral posterior communicating arteries are noted. IMPRESSION: Slight irregularity along the medial margin of the supraclinoid internal carotid artery on the left likely representing the previously described2 mm aneurysm. This measures between 2 and 3 mm. The remainder of the vasculature is unremarkable. > Interpreting Provider: Casey Christopher MD on 03/23/2023 12:29 PM Warren Tripathi MD MR ORDERABLES * XR TIBIA AND FIBULA 2 VW LEFT (10/27/2022 7:48 PM CDT) Anatomical Region Laterality Modality Lower Extremity Radiographic Elvia ging 10/27/2022 8:01 PM CDT Impressions 10/28/2022 8:26 AM CDT IMPRESSION: No acute tibial or fibular fracture identified. Report dictated by Chago Ball DO (radiology asst). IKen have personally reviewed and interpreted this examination/study. > Interpreting Provider: Ken Hamm on 10/28/2022 8:26 AM Narrative 10/28/2022 8:26 AM CDT PROCEDURE: XR TIBIA FIBULA LEFT 2VW, DATE/TIME OF EXAM: 10/27/2022 7:48 PM, LOCATION [facility] INDICATION: M25.572: Acute left ankle pain ADDITIONAL CLINICAL INFORMATION: Ordering Provider Reason For Exam: pain COMPARISON: None. FINDINGS: The tibia and fibula are intact without evidence of acute fracture. Bone density and texture are normal. No soft tissue swelling is present. Procedure Note Ken Hamm MD - 10/28/2022 PROCEDURE: XR TIBIA FIBULA LEFT 2VW, DATE/TIME OF EXAM: 10/27/2022 7:48PM, LOCATION [facility] INDICATION: M25.572: Acute left ankle pain ADDITIONAL CLINICAL INFORMATION: Ordering Provider Reason For Exam: pain COMPARISON: None. FINDINGS: The tibia and fibula are intact without evidence of acute fracture. Bone density and texture are normal. No soft tissue swelling is present. IMPRESSION: No acute tibial or fibular fracture identified. Report dictated by Chago Ball DO (radiology asst). Ken Gandhi have personally reviewed and interpreted this examination/study. > Interpreting Provider: Ken Hamm on 10/28/2022 8:26 AM Rey Whatley MD DIAGNOSTIC IMAGING O RDERABLES * XR ANKLE 3+ VW LEFT (10/27/2022 7:48 PM CDT) Anatomical Region Laterality Modality Lower Extremity Radiographic Elvia ging 10/27/2022 8:04 PM CDT Impressions 10/28/2022 8:25 AM CDT IMPRESSION: No acute fracture or dislocation identified. Report dictated by Chago Ball DO (radiology asst). Ken Gandhi have personally reviewed and interpreted this examination/study. > Interpreting Provider: Ken Hamm on 10/28/2022 8:25 AM Narrative 10/28/2022 8:25 AM CDT PROCEDURE: XR ANKLE LEFT 3VW OR MORE, DATE/TIME OF EXAM: 10/27/2022 7:48 PM, LOCATION [facility] INDICATION: M25.572: Acute left ankle pain ADDITIONAL CLINICAL INFORMATION: Ordering Provider Reason For Exam: pain and swelling COMPARISON: None. FINDINGS: The osseous structures are intact and well aligned without acute fracture or dislocation. The ankle mortise is intact. Bone density and texture are normal. No soft tissue swelling is present. Procedure Note Ken Hamm MD - 10/28/2022 PROCEDURE: XR ANKLE LEFT 3VW OR MORE, DATE/TIME OF EXAM: 10/27/2022 7:48 PM, LOCATION [facility] INDICATION: M25.572: Acute left ankle pain ADDITIONAL CLINICAL INFORMATION: Ordering Provider Reason For Exam: pain and swelling COMPARISON: None. FINDINGS: The osseous structures are intact and well aligned without acutefracture or dislocation. The ankle mortise is intact. Bone density and textureare normal. No soft tissue swelling is present. IMPRESSION: No acute fracture or dislocation identified. Report dictated by Chago Ball DO (radiology asst). IKen have personally reviewed and interpreted this examination/study. > Interpreting Provider: Ken Hamm on 10/28/2022 8:25 AM Rey Whatley MD DIAGNOSTIC IMAGING O RDERABLES * CARDIAC EKG ORDER (07/30/2022 4:39 PM GRADALL OPERATOR) Only the most recent of5 resultswithin the time period is included. Narrative 07/30/2022 4:39 PM GRADALL OPERATOR Ordered by an unspecified provider. Scanned Document CARDIAC SERVICES ORD ERABLES * PT-INR [facility] (07/28/2022 6:39 PM GRADALL OPERATOR) Only the most recent of2 resultswithin the time period is included. PT 13.6 12.1 - 14.8 Seconds 07/28/2022 7:21 PM [facility] INR 1.1 See Comment 07/28/2022 7:21 PM [facility] Comment:The suggested therap eutic range for standard coumadin (warfarin) therapy is an INR of 2.0-3.0. For high-risk patients (Mechanical Mitral Valve Prosthesis, etc.), the suggested prophylactic therapeutic range is an INR of 2.5-3.5. Blood BLOOD SPECIMEN / Unknown Venipuncture / Unknown 07/28/2022 6:39 PM GRADALL OPERATOR 07/28/2022 6:52 PM GRADALL OPERATOR Hosea Lim MD LAB - COAGULATION OR DERABLES Performing Organization Address City/[facility]/ZIP Co de Phone Number [address] [address], [place] [phone] * TROPONIN I (07/28/2022 6:39 PM GRADALL OPERATOR) Only the most recent of7 resultswithin the time period is included. [facility] Troponin I 0.011 <0.032 ng/mL 07/28/2022 7:13 PM GRADALL OPERATOR [facility] Blood BLOOD SPECIMEN / Unknown Venipuncture / Unknown 07/28/2022 6:39 PM GRADALL OPERATOR 07/28/2022 6:47 PM GRADALL OPERATOR Hosea Lim MD LAB - CHEMISTRY ORDE RABLES Performing Organization Address [facility] Co de Phone Number [address] [address], [facility] [phone] * TYPE + SCREEN PANEL (07/28/2022 6:39 PM GRADALL OPERATOR) Only the most recent of2 resultswithin the time period is included. [facility] Antibody Screen NEG 7:30 PM GRADALL OPERATOR [facility] ABO Rh O POS 07/28/2022 7:30 PM GRADALL OPERATOR [facility] Blood Bank BLOOD SPECIMEN / Unknown Venipuncture / Unknown 07/28/2022 6:39 PM GRADALL OPERATOR 07/28/2022 6:45 PM GRADALL OPERATOR Hosea Lim MD LAB - BLOOD BANK ORD ERABLES Performing Organization Address [facility] Co de Phone Number [facility] [address] [place] [id number], [facility] [phone] * (ABNORMAL) CBC W AUTO DIFFERENTIAL (07/28/2022 6:39 PM GRADALL OPERATOR) Only the most recent of5 resultswithin the time period is included. [facility] WBC 6.5 3.5 - 10.5 10 3/uL 07/28/2022 7:05 PM [facility] RBC 4.72 3.80 - 5.20 10 6/uL 07/28/2022 7:05 PM [facility] Hemoglobin 12.4 12.0 - 15.6 g/dL 07/28/2022 7:05 PM [facility] Hematocrit 37.4 35.0 - 45.0 % 07/28/2022 7:05 PM [facility] MCV 79.2(L) 80.7 - 98.3 fL 07/28/2022 7:05 PM [facility] MCH 26.3(L) 26.7 - 34.0 pg 07/28/2022 7:05 PM [facility] MCHC 33.2 30.8 - 35.9 g/dL 07/28/2022 7:05 PM [facility] RDW-SD 42.6 36.0 - 50.0 fL 07/28/2022 7:05 PM [facility] RDW-CV 14.8 11.2 - 14.8 % 07/28/2022 7:05 PM [facility] Platelet Count 320 150 - 400 10 3/uL 07/28/2022 7:05 PM [facility] MPV 10.7 9.4 - 12.9 fL 07/28/2022 7:05 PM [facility] nRBC Absolute 0.00 0 10 3/uL 07/28/2022 7:05 PM [facility] nRBC Auto 0.0 0 /100 WBC 07/28/2022 7:05 PM [facility] Neutrophils % 53.9 35.0 - 70.0 % 07/28/2022 7:05 PM [facility] Lymphocytes % 34.2 20.0 - 43.0 % 07/28/2022 7:05 PM [facility] Monocytes % 8.7 5.0 - 13.0 % 07/28/2022 7:05 PM [facility] Eosinophils % 2.8 0.0 - 6.0 % 07/28/2022 7:05 PM [facility] Basophil % 0.2 0.0 - 2.0 % 07/28/2022 7:05 PM [facility] Neutrophils Absolute 3.52 1.60 - 7.00 10 3/uL 07/28/2022 7:05 PM [facility] Lymphocyte Absolute 2.23 1.10 - 3.90 10 3/uL 07/28/2022 7:05 PM [facility] Monocytes Absolute 0.57 0.26 - 1.07 10 3/uL 07/28/2022 7:05 PM [facility] Eosinophils Absolute 0.18 0.00 - 0.47 10 3/uL 07/28/2022 7:05 PM [facility] Basophils Absolute 0.01 0.00 - 0.08 10 3/uL 07/28/2022 7:05 PM [facility] Immature Granulocytes % 0.2 0.0 - 1.0 % 07/28/2022 7:05 PM [facility] Immature Granulocytes Absolute 0.01 07/28/2022 7:05 PM [facility] Blood BLOOD SPECIMEN / Unknown Venipuncture / Unknown 07/28/2022 6:39 PM GRADALL OPERATOR 07/28/2022 6:47 PM GRADALL OPERATOR Hosea Lim MD LAB - HEMATOLOGY ORD ERABLES [address] [address], [facility] [phone] * (ABNORMAL) COMPREHENSIVE METABOLIC PANEL (07/28/2022 6:39 PM GRADALL OPERATOR) Only the most recent of3 resultswithin the time period is included. BUN 12 7 - 26 mg/dL 07/28/2022 7:24 PM [facility] Creatinine 0.89 0.56 - 0.96 mg/dL 07/28/2022 7:24 PM [facility] Sodium 144 136 - 145 mmol/L 07/28/2022 7:24 PM [facility] Potassium 4.4 3.5 - 4.5 mmol/L 07/28/2022 7:24 PM [facility] Chloride 104 98 - 107 mmol/L 07/28/2022 7:24 PM [facility] CO2 28 22 - 29 mmol/L 07/28/2022 7:24 PM [facility] Glucose 90 70 - 115 mg/dL 07/28/2022 7:24 PM [facility] Calcium 9.0 8.4 - 10.2 mg/dL 07/28/2022 7:24 PM [facility] Protein Total 7.2 6.0 - 8.3 g/dL 07/28/2022 7:24 PM [facility] Albumin 3.8 3.4 - 5.0 g/dL 07/28/2022 7:24 PM [facility] Bilirubin Total 0.5 0.2 - 1.2 mg/dL 07/28/2022 7:24 PM [facility] Alkaline Phosphatase 132 40 - 150 U/L 07/28/2022 7:24 PM [facility] ALT 26 5 - 55 U/L 07/28/2022 7:24 PM [facility] AST 30 5 - 34 U/L 07/28/2022 7:24 PM [facility] Anion Gap 16 8 - 18 07/28/2022 7:24 PM [facility] BUN/Creatinine Ratio 13 7 - 23 07/28/2022 7:24 PM [facility] Osmolality Calculated 297 270 - 300 mOsm/kg 07/28/2022 7:24 PM [facility] Albumin/Globulin Ratio 1.1 1.1 - 2.3 07/28/2022 7:24 PM [facility] eGFR by CKD-EPI 71(L) >=90 mL/min/1.7 3 m2 07/28/2022 7:24 PM [facility] Blood BLOOD SPECIMEN / Unknown Venipuncture / Unknown 07/28/2022 6:39 PM GRADALL OPERATOR 07/28/2022 6:47 PM GRADALL OPERATOR Hosea Lim MD LAB - CHEMISTRY ORDE [facility] Organization Address City/State/ZIP Co de Phone Number [facility] [address] [place] [address], [facility] [phone] * EKG 12-LEAD (07/28/2022 6:27 PM GRADALL OPERATOR) Only the most recent of3 resultswithin the time period is included. Ventricular Rate 67 BPM [facility] Atrial Rate 67 BPM [facility] P-R Interval 160 ms [facility] QRS Duration ms 80 ms [facility] Q-T Interval ms 406 ms [facility] QTC Calculation (Bezet) 429 ms [facility] Calculated P [place] 47 degrees [facility] Calculated R [place] -10 degrees [facility] Calculated T [place] 6 degrees [facility] Interpretation EKG NORMAL SINUS RHYTHM MINIMAL VOLTAGE CRITERIA FOR [facility], MAY BE NORMAL VARIANT ( R in aVL ) BORDERLINE ECG WHEN COMPARED WITH ECG OF 27-JUL-2022 00:18, NONSPECIFIC T WAVE ABNORMALITY NO LONGER EVIDENT IN ANTERIOR LEADS Confirmed by FATMATA GREENE MD ([id number]) on 07/29/2022 2:52:20 PM H MUSE 07/28/2022 6:27 PM GRADALL OPERATOR 07/29/2022 2:52 PM GRADALL OPERATOR Hosea Lim MD ECG ORDERABLES [facility] MUSE * CT BRAIN - Stroke (07/28/2022 6:21 PM GRADALL OPERATOR) Only the most recent of2 resultswithin the time period is included. Anatomical Region Laterality Modality Head Computed Tomogra phy 07/28/2022 6:26 PM GRADALL OPERATOR Impressions 07/28/2022 10:41 PM GRADALL OPERATOR IMPRESSION: No acute intracranial abnormality. Results of this exam were verbally discussed by Dr. Mckenzie with Dr. Arevalo on 07/28/2022 6:26 PM for a Critical Stroke Protocol with readback confirmation and verification. The images were reviewed by attending physician Dr. Juarez Vicente prior to this communication. I, Juarez Vicente MD have personally reviewed and interpreted this examination/study. > Interpreting Provider: Juarez Vicente MD on 07/28/2022 10:41 PM Narrative 07/28/2022 10:41 PM GRADALL OPERATOR PROCEDURE: CT BRAIN STROKE, DATE/TIME OF EXAM: 07/28/2022 6:23 PM, LOCATION [facility] INDICATION: Code Stroke ADDITIONAL CLINICAL INFORMATION: Ordering Provider Reason For Exam: Technologist Note: Additional: EXAMINATION: CT scan of the head without intravenous contrast TECHNIQUE: CT of the head was performed without intravenous contrast according to standard protocol. CT dose reduction technique was used, including Automated Exposure Control. COMPARISON: CT head dated 07/28/2022, MRI brain without contrast dated 07/28/2022 FINDINGS: BRAIN PARENCHYMA: No acute hemorrhage, large vascular territory infarct, or mass effect. Scattered white matter hypodensities, which nonspecific but likely represents the sequela of chronic microangiopathic change. VENTRICLES/EXTRA-AXIAL SPACES: No ventriculomegaly or extra-axial collection. EXTRACRANIAL STRUCTURES: Normal bones and soft tissues. Visualized paranasal sinuses and mastoids demonstrate no significant abnormality. Procedure Note Juarez Vicente MD - 07/28/2022 PROCEDURE: CT BRAIN STROKE, DATE/TIME OF EXAM: 07/28/2022 6:23 PM,LOCATION [facility] INDICATION: Code Stroke ADDITIONAL CLINICAL INFORMATION: Ordering Provider Reason For Exam: Technologist Note: Additional: EXAMINATION: CT scan of the head without intravenous contrast TECHNIQUE: CT of the head was performed without intravenous contrast according to standard protocol. CT dose reduction technique was used, including Automated Exposure Control. COMPARISON: CT head dated 07/28/2022, MRI brain without contrast dated 07/28/2022 FINDINGS: BRAIN PARENCHYMA: No acute hemorrhage, large vascular territory infarct,or mass effect. Scattered white matter hypodensities, which nonspecific but likely represents the sequela of chronic microangiopathic change. VENTRICLES/EXTRA-AXIAL SPACES: No ventriculomegaly or extra-axial collection. EXTRACRANIAL STRUCTURES: Normal bones and soft tissues. Visualized paranasal sinuses and mastoids demonstrate no significant abnormality. IMPRESSION: No acute intracranial abnormality. Results of this exam were verbally discussed by Dr. Mcknezie with Dr. Arevalo on 07/28/2022 6:26 PM for a Critical Stroke Protocol withreadback confirmation and verification. The images were reviewed by attending physician Dr. Juarez Vicente prior to this communication. IJuarez MD have personally reviewed and interpreted this examination/study. > Interpreting Provider: Juarez Vicente MD on 07/28/2022 10:41 PM Hosea Lim MD CT ORDERABLES * GLUCOSE - POINT OF CARE (07/28/2022 6:19 PM GRADALL OPERATOR) Only the most recent of4 resultswithin the time period is included. Glucose WB/POC 87 70 - 115 mg/dL 07/29/2022 6:22 AM GRADALL OPERATOR [facility] Specimen Type Cap Fingerstick 2022 6:22 AM GRADALL OPERATOR [facility] Blood BLOOD SPECIMEN / Unknown 07/28/2022 6:19 PM GRADALL OPERATOR 07/29/2022 6:22 AM GRADALL OPERATOR Provider Unknown LAB - POINT OF CARE ORDERABLES [facility] [address] [place] [phone], [facility] [phone] * CT HEAD NON CONTRAST (07/28/2022 1:44 AM GRADALL OPERATOR) Anatomical Region Laterality Modality Head Computed Tomogra phy 07/28/2022 1:43 AM GRADALL OPERATOR Impressions 07/28/2022 1:07 PM GRADALL OPERATOR IMPRESSION: 1.No acute intracranial process. > Dictated by Av Rojas MD (Certified Coding Specialist) I, Nano Dominguez MD have personally reviewed and interpreted this examination/study. > Interpreting Provider: Nano Dominguez MD on 07/28/2022 1:07 PM Narrative 07/28/2022 1:07 PM GRADALL OPERATOR PROCEDURE: CT HEAD WO CONTRAST, DATE/TIME OF EXAM: 07/28/2022 1:45 AM, LOCATION [facility] INDICATION: R29.810: Facial weakness ADDITIONAL CLINICAL INFORMATION: Ordering Provider Reason For Exam: post TNK follow up Technologist Note: Additional: COMPARISON: CT brain stroke 07/26/2022 MRI brain 07/28/2022 TECHNIQUE: Noncontrast CT brain was performed utilizing standard protocol. CT dose reduction technique was used, including Automated Exposure Control. FINDINGS: No acute intracranial hemorrhage. No extra-axial fluid collections are identified. There is mild cerebral volume loss with associated ex vacuo ventricular dilatation. The basilar cisterns are patent. No mass effect or midline shift is seen. Scattered periventricular and subcortical hypodensities predominantly along the right anterior frontal lobe, nonspecific could be sequelae of chronic ischemic small vessel disease. There is vascular calcification of the carotid siphons. No acute calvarial fracture is identified. The orbits appear normal. The paranasal sinuses are clear. The mastoid air cells are clear. No soft tissue abnormality is identified. Procedure Note Nano Dominguez MD - 07/28/2022 PROCEDURE: CT HEAD WO CONTRAST, DATE/TIME OF EXAM: 07/28/2022 1:45 AM, LOCATION [facility] INDICATION: R29.810: Facial weakness ADDITIONAL CLINICAL INFORMATION: Ordering Provider Reason For Exam: post TNK follow up Technologist Note: Additional: COMPARISON: CT brain stroke 07/26/2022 MRI brain 07/28/2022 TECHNIQUE: Noncontrast CT brain was performed utilizing standard protocol. CT dose reduction technique was used, including Automated ExposureControl. FINDINGS: No acute intracranial hemorrhage. No extra-axial fluid collections are identified. There is mild cerebral volume loss with associated ex vacuo ventricular dilatation. The basilar cisterns are patent. No mass effector midline shift is seen. Scattered periventricular and subcortical hypodensities predominantly along the right anterior frontal lobe, nonspecific could be sequelae of chronic ischemic small vessel disease. There is vascular calcification of the carotid siphons. No acutecalvarial fracture is identified. The orbits appear normal. The paranasal sinusesare clear. The mastoid air cells are clear. No soft tissue abnormality is identified. IMPRESSION: 1.No acute intracranial process. > Dictated by Av Rojas MD (Certified Coding Specialist) I, Nano Dominguez MD have personally reviewed and interpreted this examination/study. > Interpreting Provider: Nano Dominguez MD on 07/28/2022 1:07 PM Hosea Lim MD CT ORDERABLES * MRI BRAIN WO CONTRAST (07/28/2022 1:34 AM GRADALL OPERATOR) Anatomical Region Laterality Modality Head Magnetic Resonan ce 07/28/2022 11:1 7 AM GRADALL OPERATOR Impressions 07/28/2022 11:35 AM GRADALL OPERATOR IMPRESSION: 1. No evidence of restricted diffusion to suggest an acute infarction. > Interpreting Provider: Jessica Pickering MD on 07/28/2022 11:35 AM Narrative 07/28/2022 11:35 AM GRADALL OPERATOR PROCEDURE: MRI BRAIN WO CONTRAST, DATE/TIME OF EXAM: 07/28/2022 1:34 AM, LOCATION [facility] INDICATION: I63.9: Cerebrovascular accident (CVA), unspecified mechanism (CMS/HCC) ADDITIONAL CLINICAL INFORMATION: Ordering Provider Reason For Exam: Stroke Technologist Note: None. Additional: None. EXAMINATION: Magnetic resonance imaging (MRI) of the brain without contrast TECHNIQUE: MRI of the brain was performed without contrast according to standard protocol. COMPARISON: CT of the head from 07/26/2022. CTA of the head and neck from 07/27/2022. FINDINGS: No evidence of acute or chronic hemorrhage is identified. No evidence of acute cerebral infarction is seen. There is mild cerebral volume loss with associated ex vacuo ventricular dilatation. No mass effect or midline shift is seen. Periventricular and subcortical white matter FLAIR hyperintensities likely represent sequelae of chronic small vessel ischemic disease. Tiny old infarcts are seen in the right cerebellar hemisphere. The corpus callosum and sella appear grossly unremarkable. The posterior fossa, brainstem, and craniocervical junction appear normal. The visualized portions of the orbits appear grossly unremarkable. There is mild paranasal sinus disease. The imaged mastoid air cells appear grossly clear. 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 Normal flow voids are demonstrated in the carotid arteries and basilar artery. The calvarium and visualized cervical spine appear grossly unremarkable. Procedure Note Jessica Pickering MD - 07/28/2022 PROCEDURE: MRI BRAIN WO CONTRAST, DATE/TIME OF EXAM: 07/28/2022 1:34 AM, LOCATION [facility] INDICATION: I63.9: Cerebrovascular accident (CVA), unspecified mechanism (CMS/HCC) ADDITIONAL CLINICAL INFORMATION: Ordering Provider Reason For Exam: Stroke Technologist Note: None. Additional: None. EXAMINATION: Magnetic resonance imaging (MRI) of the brain withoutcontrast TECHNIQUE: MRI of the brain was performed without contrast according to standard protocol. COMPARISON: CT of the head from 07/26/2022. CTA of the head and neck from 07/27/2022. FINDINGS: No evidence of acute or chronic hemorrhage is identified. No evidence of acute cerebral infarction is seen. There is mild cerebral volume losswith associated ex vacuo ventricular dilatation. No mass effect or midlineshift is seen. Periventricular and subcortical white matter FLAIR hyperintensities likely represent sequelae of chronic small vesselischemic disease. Tiny old infarcts are seen in the right cerebellar hemisphere.The corpus callosum and sella appear grossly unremarkable. The posteriorfossa, brainstem, and craniocervical junction appear normal. The visualized portions of the orbits appear grossly unremarkable. Thereis mild paranasal sinus disease. The imaged mastoid air cells appeargrossly clear. 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 Normal flow voids are demonstrated in the carotid arteriesand basilar artery. The calvarium and visualized cervical spine appeargrossly unremarkable. IMPRESSION: 1. No evidence of restricted diffusion to suggest an acute infarction. > Interpreting Provider: Jessica Pickering MD on 07/28/2022 11:35 AM Warren Tripathi MD MR ORDERABLES * (ABNORMAL) CBC W/O DIFFERENTIAL (07/28/2022 12:13 AM [facility]) Only the most recent of2 resultswithin the time period is included. WBC 6.8 3.5 - 10.5 10 3/uL 07/28/2022 12:43 AM [facility] RBC 4.58 3.80 - 5.20 10 6/uL 07/28/2022 12:43 AM [facility] Hemoglobin 11.7(L) 12.0 - 15.6 g/dL 07/28/2022 12:43 AM [facility] Hematocrit 36.0 35.0 - 45.0 % 07/28/2022 12:43 AM [facility] MCV 78.6(L) 80.7 - 98.3 fL 07/28/2022 12:43 AM [facility] MCH 25.5(L) 26.7 - 34.0 pg 07/28/2022 12:43 AM [facility] MCHC 32.5 30.8 - 35.9 g/dL 07/28/2022 12:43 AM [facility] RDW-SD 42.5 36.0 - 50.0 fL 07/28/2022 12:43 AM [facility] RDW-CV 15.0(H) 11.2 - 14.8 % 07/28/2022 12:43 AM [facility] Platelet Count 312 150 - 400 10 3/uL 07/28/2022 12:43 AM [facility] MPV 10.6 9.4 - 12.9 fL 07/28/2022 12:43 AM [facility] nRBC Absolute 0.00 0 10 3/uL 07/28/2022 12:43 AM [facility] nRBC Auto 0.0 0 /100 WBC 07/28/2022 12:43 AM [facility] Blood BLOOD SPECIMEN / Unknown Venipuncture / Unknown 07/28/2022 12:13 AM [facility] 07/28/2022 12:27 AM [facility] Hosea Lim MD LAB - HEMATOLOGY ORD ERABLES [facility] [address] [place] [id number], [facility] [phone] * BASIC METABOLIC PANEL (CALCIUM TOTAL) (07/28/2022 12:13 AM [facility]) Only the most recent of4 resultswithin the time period is included. BUN 11 7 - 26 mg/dL 07/28/2022 12:56 AM [facility] Creatinine 0.73 0.56 - 0.96 mg/dL 07/28/2022 12:56 AM [facility] Sodium 142 136 - 145 mmol/L 07/28/2022 12:56 AM [facility] Potassium 4.0 3.5 - 4.5 mmol/L 07/28/2022 12:56 AM [facility] Chloride 106 98 - 107 mmol/L 07/28/2022 12:56 AM [facility] CO2 28 22 - 29 mmol/L 07/28/2022 12:56 AM [facility] Glucose 94 70 - 115 mg/dL 07/28/2022 12:56 AM [facility] Calcium 8.9 8.4 - 10.2 mg/dL 07/28/2022 12:56 AM [facility] Anion Gap 12 8 - 18 07/28/2022 12:56 AM [facility] BUN/Creatinine Ratio 15 7 - 23 07/28/2022 12:56 AM [facility] Osmolality Calculated 293 270 - 300 mOsm/kg 07/28/2022 12:56 AM [facility] eGFR by CKD-EPI 90 >=90 mL/min/1.7 3 m2 07/28/2022 12:56 AM [facility] Blood BLOOD SPECIMEN / Unknown Venipuncture / Unknown 07/28/2022 12:13 AM GRADALL OPERATOR 07/28/2022 12:27 AM GRADALL OPERATOR Hosea Lim MD LAB - CHEMISTRY ORDSafia WHEELER [address] [address], [facility] [phone] * PHOSPHORUS BLOOD (07/28/2022 12:13 AM GRADALL OPERATOR) Only the most recent of2 resultswithin the time period is included. Phosphorus 3.4 2.9 - 5.1 mg/dL 07/28/2022 2:01 AM [facility] Blood BLOOD SPECIMEN / Unknown Venipuncture / Unknown 07/28/2022 12:13 AM GRADALL OPERATOR 07/28/2022 12:27 AM GRADALL OPERATOR Warren Tripathi MD LAB - CHEMISTRY ORD [place] Performing Organization Address City/[facility]/ZIP Co de Phone Number [address] [address], [facility] [phone] * MAGNESIUM BLOOD (07/28/2022 12:13 AM GRADALL OPERATOR) Only the most recent of2 resultswithin the time period is included. Magnesium 2.0 1.6 - 2.6 mg/dL 07/28/2022 2:01 AM [facility] Blood BLOOD SPECIMEN / Unknown Venipuncture / Unknown 07/28/2022 12:13 AM GRADALL OPERATOR 07/28/2022 12:27 AM GRADALL OPERATOR Warren Tripathi MD LAB - CHEMISTRY ORD ERABLES [facility] [address] [place] [phone], [facility] [phone] * BLOOD TYPE VERIFICATION (07/27/2022 3:44 PM GRADALL OPERATOR) ABO Rh O POS 07/27/2022 4:3 6 PM GRADALL OPERATOR [facility] BLOOD BANK LAB Blood Bank BLOOD SPECIMEN / Unknown Venipuncture / Unknown 07/27/2022 3:44 PM GRADALL OPERATOR 07/27/2022 3:50 PM GRADALL OPERATOR Awilda Schmidt MD LAB - BLOOD BANK ORD ERABLES [facility] BLOOD BANK LAB [address] [place] [phone], [place] [phone] * HEMOGLOBIN A1C (07/27/2022 3:44 PM GRADALL OPERATOR) Hemoglobin A1c 5.3 <=5.6 % 07/28/2022 8:14 AM [facility] Estimated Average Glucose 105 mg/dL 07/28/2022 8:14 AM [facility] Comment: HbA1c Interpretation: Normal : < 5.7% Pre-diabetes: 5.7-6.4% Diabetes: Equal to or greater than 6.5% Test results diagnostic of diabetes should be repeated for confirmation. Treatment target values recommended by ADA and other clinical organizations should be used to evaluate metabolic control in patients. Reference: [place] [employer], Standards of Care in Diabetes -2020 In patients 70 years and older consider HbA1c target range of 7.0-7.5% (Reference: Paco Palumbo et al. JAMDA. 2012) The Sebia assay for the measurement of HbA1c is a National Glycohemoglobin Standardization Program (NGSP) certified method. Blood BLOOD SPECIMEN / Unknown Venipuncture / Unknown 07/27/2022 3:44 PM GRADALL OPERATOR 07/27/2022 3:53 PM GRADALL OPERATOR Hosea Lim MD LAB - CHEMISTRY VITALY WHEELER [facility] [address] [place] [address], [place] [phone] * ECHO COMPLETE W BUBBLE STUDY (07/27/2022 10:01 AM GRADALL OPERATOR) Anatomical Region Laterality Modality Chest Echo 07/27/2022 8:59 AM GRADALL OPERATOR Narrative Procedure Note Rey Montes De Oca MD - 07/27/2022 Hosea Lim MD ECHOCARDIOGRAPHY RAD IANT * (ABNORMAL) LIPID PROFILE (07/27/2022 3:10 AM GRADALL OPERATOR) Cholesterol Total 163 <200 mg/dL 07/27/2022 3:36 AM [facility] HDL 34(L) >40 mg/dL 07/27/2022 3:36 AM [facility] Comment: ATP III Classification of HDL Cholesterol: <40 mg/dL: Considered a major risk factor. >60 mg/dL: Considered a negative risk factor. LDL Calculated 110(H) <100 mg/dL 07/27/2022 3:36 AM [facility] Comment: ATP III Classification of LDL Cholesterol: <100 mg/dL: Optimal 100 - 129 mg/dL: Near Optimal/Above Optimal 130 - 159 mg/dL: Borderline High 160 - 189 mg/dL: High >190 mg/dL: Very High Triglycerides 94 <150 mg/dL 07/27/2022 3:36 AM [facility] Comment: ATP III Classification of Triglycerides: <150 mg/dL: Normal 150 - 199 mg/dL: Borderline High 200 - 400 mg/dL: High >500 mg/dL: Very High Blood BLOOD SPECIMEN / Unknown Venipuncture / Unknown 07/27/2022 3:10 AM GRADALL OPERATOR 07/27/2022 3:23 AM GRADALL OPERATOR Hosea Lim MD LAB - CHEMISTRY VITALY WHEELER [facility] [address] [place] [address] [phone] * XR CHEST 1VW PORTABLE (07/27/2022 12:52 AM GRADALL OPERATOR) Only the most recent of2 resultswithin the time period is included. Anatomical Region Laterality Modality Chest Radiographic Elvia ging 07/27/2022 8:14 AM GRADALL OPERATOR Narrative 07/27/2022 8:15 AM GRADALL OPERATOR EXAMINATION: XR CHEST 1VW PORTABLE HISTORY: R29.810: Facial weakness COMPARISON: No prior study is available for comparison. FINDINGS/IMPRESSION: Lines: *None. Minimal left basilar atelectasis with left hemidiaphragmatic tenting is noting. Otherwise, no confluent consolidation is noted. No pleural effusion is seen. No pneumothorax is identified. Cardiac size is normal. Aortic atherosclerosis is noted. The superior mediastinal contours are within normal limits. No acute osseous abnormality is identified. No free air is seen under the diaphragm. > Interpreting Provider: ADONIS SCHMITT MD on 07/27/2022 8:15 AM Procedure Note Adonis Schmitt MD - 07/27/2022 EXAMINATION: XR CHEST 1VW PORTABLE HISTORY: R29.810: Facial weakness COMPARISON: No prior study is available for comparison. FINDINGS/IMPRESSION: Lines: *None. Minimal left basilar atelectasis with left hemidiaphragmatic tenting is noting. Otherwise, no confluent consolidation is noted. No pleuraleffusion is seen. No pneumothorax is identified. Cardiac size is normal. Aortic atherosclerosis is noted. The superior mediastinal contours are within normal limits. No acute osseous abnormality is identified. No free airis seen under the diaphragm. > Interpreting Provider: ADONIS SCHMITT MD on 07/27/2022 8:15 AM Hosea Lim MD DIAGNOSTIC IMAGING O RDERABLES * CT ANGIO BRAIN NECK STROKE (07/27/2022 12:16 AM GRADALL OPERATOR) Anatomical Region Laterality Modality Head Computed Tomogra phy 07/27/2022 12:0 6 AM GRADALL OPERATOR Impressions 07/27/2022 12:36 PM GRADALL OPERATOR IMPRESSION: 1.Patent intracranial arteries. 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 3.No stenosis of cervical segments of carotid and vertebral arteries. These findings of no LVO were discussed in detail with the patient's care provider, Dr. Teixeira by Dr. Styles via telephone at 12:23 am on 07/27/22 with readback comprehension and verification. > Dictated by Av Rojas MD (Certified Coding Specialist) I, Patti Marcano MD have personally reviewed and interpreted this examination/study. > Interpreting Provider: Patti Marcano MD on 07/27/2022 12:36 PM Narrative 07/27/2022 12:36 PM GRADALL OPERATOR PROCEDURE: CT ANGIO BRAIN NECK STROKE, DATE/TIME OF EXAM: 07/27/2022 12:17 AM, LOCATION [facility] INDICATION: Code Stroke COMPARISON: None. EXAMINATION: CT angiogram of the brain CT angiogram of the neck TECHNIQUE: CT angiography of the head and neck was obtained after administration of intravenous contrast. Three dimensional postprocessing was performed by the technologist and sent to the workstation for review. NASCET criteria was utilized for evaluation of carotid stenosis. CT dose reduction technique was used, including Automated Exposure Control. Additionally, Viz.AI was used for large vessel occlusion detection. CONTRAST: Iopamidol 76% iv soln: 75 ml FINDINGS: CTA brain: *Right carotid system: Normal caliber patent ICA without stenosis. Scattered calcification of the cavernous ICA. Patent OLGA and MCA. Mild focal stenosis of the distal M1 segment. Nonvisualization of anterior communicating artery. *Left carotid system: Normal caliber patent ICA without stenosis. Scattered calcification of the cavernous ICA. 2 mm aneurysm arising from the supraclinoid segment of left ICA projecting medially (series 5 image 314). Patent OLGA and MCA. Nonvisualization of anterior communicating artery. *Posterior circulation: Patent vertebral arteries and basilar artery without stenosis. Patent auto customize painter. origin of both auto customize painter. The dural venous sinuses are patent. CTA neck: *Aortic arch: Small scattered calcified plaques. 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 Three-vessel configuration of the branch vessel origin. *Right carotid system: Patent. No stenosis. Medialization of CCA. No calcified plaque. *Left carotid system: Patent. No stenosis. Tiny calcified plaque at the carotid bulb. Vascular loop of the ICA near the skull base. *Right vertebral artery: Patent. No stenosis. No calcified plaque. *Left vertebral artery: Patent. No stenosis. No calcified plaque. Extravascular findings: No significant finding. Procedure Note Patti Marcano MD - 07/27/2022 PROCEDURE: CT ANGIO BRAIN NECK STROKE, DATE/TIME OF EXAM: 2:17 AM, LOCATION [facility] INDICATION: Code Stroke COMPARISON: None. EXAMINATION: CT angiogram of the brain CT angiogram of the neck TECHNIQUE: CT angiography of the head and neck was obtained after administration of intravenous contrast. Three dimensional postprocessing was performed by the technologist and sent to the workstation forTykli. NASCET criteria was utilized for evaluation of carotid stenosis. CT dose reduction technique was used, including Automated Exposure Control. Additionally, Viz.AI was used for large vessel occlusion detection. CONTRAST: Iopamidol 76% iv soln: 75 ml FINDINGS: CTA brain: *Right carotid system: Normal caliber patent ICA without stenosis. Scattered calcification of the cavernous ICA. Patent OLGA and MCA. Mild focal stenosis of the distal M1 segment. Nonvisualization of anterior communicating artery. *Left carotid system: Normal caliber patent ICA without stenosis.Scattered calcification of the cavernous ICA. 2 mm aneurysm arising from the supraclinoid segment of left ICA projecting medially (series 5 image 314). Patent OLGA and MCA. Nonvisualization of anterior communicating artery. *Posterior circulation: Patent vertebral arteries and basilar artery without stenosis. Patent auto customize painter. origin of both auto customize painter. The dural venous sinuses are patent. CTA neck: *Aortic arch: Small scattered calcified plaques. 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 Three-vessel configuration of the branch vessel origin. *Right carotid system: Patent. No stenosis. Medialization of CCA. No calcified plaque. *Left carotid system: Patent. No stenosis. Tiny calcified plaque at the carotid bulb. Vascular loop of the ICA near the skull base. *Right vertebral artery: Patent. No stenosis. No calcified plaque. *Left vertebral artery: Patent. No stenosis. No calcified plaque. Extravascular findings: No significant finding. IMPRESSION: 1.Patent intracranial arteries. 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 3.No stenosis of cervical segments of carotid and vertebral arteries. These findings of no LVO were discussed in detail with the patient'scare provider, Dr. Teixeira by Dr. Styles via telephone at 12:23 am on 07/27/22with readback comprehension and verification. > Dictated by Av Rojas MD (Certified Coding Specialist) I, Patti Marcano MD have personally reviewed and interpreted this examination/study. > Interpreting Provider: Patti Marcano MD on 07/27/2022 12:36 PM Authorizing Provider Result Katalina Lim MD CT ORDERABLES * INR WHOLE BLOOD - POINT OF CARE (IP) STROKE (07/26/2022 11:56 PM GRADALL OPERATOR) INR 1.2 0.9 - 1.2 07/27/2022 5:45 AM [facility] Device [id number] 07/27/2022 5:45 AM [facility] Sausage Cooker ID [id number] 07/27/2022 5:45 AM [facility] Blood BLOOD SPECIMEN / Unknown 07/26/2022 11:56 PM GRADALL OPERATOR 07/27/2022 5:45 AM GRADALL OPERATOR Narrative Authorizing Provider Result Katalina Lim MD LAB - POINT OF CARE ORDERABLES [address] [address], [facility] [phone] * CREATININE - POCT INTERFACED (07/26/2022 11:56 PM GRADALL OPERATOR) Creatinine POCT 0.68 0.30 - 1.30 mg/dL 07/26/2022 11:58 PM [facility] Comment:CT range acceptable eGFR >90 >90 mL/min/1.7 3 m2 07/26/2022 11:58 PM [facility] Blood BLOOD SPECIMEN / Unknown 07/26/2022 11:56 PM GRADALL OPERATOR 07/26/2022 11:58 PM GRADALL OPERATOR Narrative Authorizing Provider Result Katalina Lim MD LAB - POINT OF CARE ORDERABLES [facility] [place] [id number] [phone] * NC LARYNGOSCOPY,FLEX FIBER,DIAGNOSTIC (08/05/2021 11:21 AM GRADALL OPERATOR) Narrative Ravin Sheikh MD - 08/05/2021 11:21 AM GRADALL OPERATOR Ravin Sheikh MD 08/05/2021 11:22 AM Procedure Note Endoscopy Type: Laryngoscopy without stroboscopy [id number] Endoscope: Flexible 4mm Scope Anesthesia: Lidocaine 2% and Neosynephrine 1/2% (nasal) Procedure Details: The patient was sitting upright in a chair with the head in a slightly anterior sniffing position. The topical anesthesia was administered and then adequate time was allowed for an anesthetic effect. The endoscope was passed thru the nasal cavity with the tongue retracted anteriorly. The tip of the endoscope was positioned in the oropharynx which allowed a complete view of the base of tongue, vallecula, pyriform recesses, epiglottis, bilateral true and false vocal folds, the interarytenoid and post cricoid region, and the immediate subglottis. Findings: Nasal cavity is clear there is no crusting. There is no evidence of infection in the middle meatus the palate elevates symmetrically. Base of tongue is normal the epiglottis is normal vocal cords move normally there is no nodules or polyps. Subglottis is clear. Condition: Stable. Patient tolerated procedure well. Complications: None I was present for the entirety of the procedure. Ravin Sheikh MD PROCEDURE/MINOR SURG ICAL ORDERABLES * T3 FREE (06/12/2020 3:25 PM GRADALL OPERATOR) T3 Free 2.8 2.0 - 4.4 pg/mL Fluid Stone INSURANCE BILL 06/12/2020 3:25 PM GRADALL OPERATOR 06/12/2020 Narrative Resulting Agency Comment Lab Testing performed at: [facility] [address] [facility] [phone] Zachariah Woo MD LAB - CHEMISTRY [facility] INSURANCE BILL [address] [place] [address] * (ABNORMAL) TSH (06/12/2020 3:25 PM GRADALL OPERATOR) Only the most recent of3 resultswithin the time period is included. TSH 4.910(H) 0.450 - 4.500 uIU/mL [facility] INSURANCE BILL 06/12/2020 3:25 PM GRADALL OPERATOR 06/12/2020 Narrative Resulting Agency Comment Lab Testing performed at: [facility] [address] [facility] [phone] Zachariah Woo MD LAB - CHEMISTRY VITALY WHEELER Performing Organization Address [facility] de Phone Number [facility] INSURANCE BILL [address] [place] [address] * T4 FREE (06/12/2020 3:25 PM GRADALL OPERATOR) Only the most recent of3 resultswithin the time period is included. T4 Free 1.00 0.82 - 1.77 ng/dL [facility] INSURANCE BILL 06/12/2020 3:25 PM GRADALL OPERATOR 06/12/2020 Narrative Resulting Agency Comment Lab Testing performed at: [facility] [address] [facility] [id number] Zachariah Woo MD LAB - CHEMISTRY VITALY WHEELER Performing Organization Address [facility] de Phone Number [facility] INSURANCE BILL [address] [place] [address] * NM MYOCARD PERF REST STRESS (03/14/2020 1:20 PM CDT) Only the most recent of2 resultswithin the time period is included. Anatomical Region Laterality Modality Chest Nuclear Medicine 03/14/2020 1:12 PM CDT Impressions 03/14/2020 3:44 PM CDT IMPRESSION: 1. No evidence of myocardial infarction or stress-induced ischemia. 2. Normal left ventricular wall motion and thickening. 3. The calculated left ventricular ejection fraction of 58%, previously 51%. This report was approved by Lakhwinder Lara on 03/14/2020 2:56 PM . I, Dr. MAGDA SNOW, D.O. have personally reviewed and interpreted this examination/study. This report was electronically signed by MAGDA SNOW D.O. on 03/14/2020 3:44 PM . Narrative 03/14/2020 3:44 PM CDT STUDY: Rest and Pharmacologic stress SPECT/CT myocardial imaging with gating- 1 day protocol HISTORY: 64 year old female with h/o HTN, seasonal allergy, and cystocele s/p anterior repair and perineoplasty. For the past month she has been c/o occasional chest tightness associated with SOB. The episodes are not related to exertion and they spontaneously resolve in few minutes. Patient's BMI 37.24 kg/m2 . COMPARISON: [facility] on 09/19/2012 . PROCEDURE: The rest intravenous injection of 10.6 mCi of Tc-99m Myoview was administered IV in the RAC. Myocardial perfusion imaging was performed 30 minutes post-injection. Preliminary rest EKG demonstrated no evidence of ischemic changes. At the conclusion of the rest imaging, pharmacologic stress testing was performed with 0.4 mg of Regadenoson administered IV in the RAC over 10 seconds. No low-level exercise was performed in conjunction with the vasodilator infusion. The patient experienced mild chest pressure. Preliminary stress ECG demonstrated no evidence of ischemic changes. After approximately 10 seconds, the patient was injected with 33 mCi of Tc-99m Myoview IV in the RAC. Gated SPECT/CT myocardial perfusion imaging was performed 30 minutes post-injection. Low-dose noncontrast CT of the region of the heart was performed for attenuation correction only. The heart rate at rest was 67 bpm at baseline and increased to 104 bpm during the vasodilator infusion. The BP was 154/88 mmHg at rest and 153/84 mmHg after the stress procedure. A separate ECG report will be read by Cardiology. FINDINGS: The image quality is technically adequate despite patient motion and adjacent bowel activity. In the stress and rest SPECT/CT images, the left ventricle is normal in size. The stress SPECT/CT images show a normal pattern of myocardial perfusion. There is no significant change in the perfusion pattern at rest. Gated SPECT/CT images show normal myocardial thickening and normal wall motion. The calculated left ventricular ejection fraction is 58%, previously 51%. The low-dose CT portion of the SPECT-CT within the visualized field of view showed subtle coronary atherosclerotic changes and degenerative spine changes. Procedure Note Magda Snow, DO - 03/14/2020 STUDY: Rest and Pharmacologic stress SPECT/CT myocardial imaging with gating- 1 day protocol HISTORY: 64 year old female with h/o HTN, seasonal allergy, andcystocele s/p anterior repair and perineoplasty. For the past month she has beenc/o occasional chest tightness associated with SOB. The episodes are not related to exertion and they spontaneously resolve in few minutes. Patient's BMI 37.24 kg/m2 . COMPARISON: [facility] on 09/19/2012 . PROCEDURE: The rest intravenous injection of 10.6 mCi of Tc-99m Myoview was administered IV in the RAC. Myocardial perfusion imaging was [id number] minutes post-injection. Preliminary rest EKG demonstrated no evidence of ischemic changes. At the conclusion of the rest imaging, pharmacologic stress testing was performed with 0.4 mg of Regadenoson administered IVin the RAC over 10 seconds. No low-level exercise was performed in conjunction with the vasodilator infusion. The patient experienced mild chest pressure. Preliminary stress ECG demonstrated no evidence of ischemic changes. After approximately 10 seconds, the patient wasinjected with 33 mCi of Tc-99m Myoview IV in the RAC. Gated SPECT/CT myocardial perfusion imaging was performed 30 minutes post-injection. Low-dose noncontrast CT of the region of the heart was performed for attenuation correction only. The heart rate at rest was 67 bpm at baseline and increased to 104 bpm during the vasodilator infusion. The BP was 154/88 mmHg at rest [id number] mmHg after the stress procedure. A separate ECG report will be read by Cardiology. FINDINGS: The image quality is technically adequate despite patient motion and adjacent bowel activity. In the stress and rest SPECT/CT images, theleft ventricle is normal in size. The stress SPECT/CT images show a normal pattern of myocardial perfusion. There is no significant change in the perfusion pattern at rest. Gated SPECT/CT images show normal myocardial thickening and normal wall motion. The calculated left ventricular ejection fraction is 58%, previously 51%. The low-dose CT portion of the SPECT-CT within the visualized field of view showed subtle coronary atherosclerotic changes and degenerativespine changes. IMPRESSION: 1. No evidence of myocardial infarction or stress-induced ischemia. 2. Normal left ventricular wall motion and thickening. 3. The calculated left ventricular ejection fraction of 58%, previously 51%. This report was approved by Lakhwinder Lara on 03/14/2020 2:56 PM . IDr. MAGDA D.O. have personally reviewed and interpreted this examination/study. This report was electronically signed by MAGDA SNOW D.O. on03/14/2020 3:44 PM . Carmen Shipley MD NM ORDERABLE S * EKG - Clinic Performed (02/27/2020 9:01 AM CDT) Carmen Shipley MD ECG ORDERABL ES * CARDIAC RHYTHM STRIP ORDER (12/27/2019 4:10 PM CDT) Only the most recent of2 resultswithin the time period is included. Narrative 12/27/2019 4:10 PM CDT Ordered by an unspecified provider. Scanned Document CARDIAC SERVICES ORD ERABLES * ETT LINE PERFORMABLE (12/25/2019 9:06 AM CDT) Narrative Renetta Wallace APRN-CRNA - 12/25/2019 9:06 AM CDT Renetta Wallace APRN-CRNA 12/25/2019 9:06 AM Endotracheal Tube Placement: Patient Location: OR. Intubation Event Date/Time: 12/25/2019 8:57 AM Procedure: intubation (21655). Procedure Section: Sedation: under general anesthesia. Indications for Airway Management: anesthesia Induction: standard IV Patient Position: supine and sniffing Mask Ventilation: easy. Blade Type: Samantha Blade Size: 3 Laryngoscopy View: grade 1 (full cords) Intubation Adjuncts: stylet Tube: endotracheal tube Placement: oral Tube type: cuff - inflated Tube Size (MM): 7 Depth of Insertion (CM): 22 Measured From: lips Cuff volume (mL): 7 Cuff inflation pressure (CM H20): 20 Cuff Inflated With: air Number of Attempts: 1. Placement Verified By: direct visualization, bilateral breath sounds, chest auscultation and CO2 monitor Tube secured with: adhesive tape. Procedure Start Time: 12/25/2019 8:57 AM. Staff Section Anesthesia Provider: Renetta Wallace APRN-CRNA, Performed the procedure Additional Comments: Atraumatic intubation. All mouth, lips, tongue, teeth same condition as baseline. Franklin Mg MD GENERAL ANESTHESIA ORDERABLES * SARS-COV-2 (COVID-19) IN HOUSE (12/20/2019 10:08 AM CDT) COVID-19 PCR Not detected Not detected, Invalid 12/20/2019 6:19 PM CDT [facility] Microbiology SPECIMEN FROM NASOPHARYNGEAL STRUCTURE / Unknown Collection / Unknown 12/20/2019 10:08 AM CDT 12/20/2019 10:23 AM CDT Narrative [facility] - 12/20/2019 6:19 PM CDT This nucleic acid amplification assay performance was validated by [facility]. This test has been authorized by the Food and Drug administration (FDA)under an Emergency Use Authorization (EUA). This test has been validated in accordance with the FDA's guidance document Policy for Diagnostic Testing in Laboratories Certified to perform High Complexity Testing under CLIA prior to Emergency Use Authorization for Coronavirus Disease-2019 during the Public Health Emergency issued on August 19, 2019. FDA independent review of this validation is pending. This test is only authorized for the duration of time the declaration that circumstances exist justifying the authorization of emergency use of in vitro diagnostic tests for detection of SARS-CoV-2 virus and/or diagnosis of COVID-19 infection under section 564(b)(1) of the Act, 21 U.S.C 360bbb-3 (b)(1), unless the authorization is terminated or revoked sooner. Van Tate MD LAB - MICROBIOLOGY O RDERABLES [facility] [address] [place] [address], [facility] [phone] * NC CYSTOMETROGRAM W/MAINT MECHANIC&UP, NC INTRAABDOMINAL PRESSURE TEST, NC ANAL/URINARY MUSCLE STUDY (01/17/2019 3:50 PM CDT) Narrative Van Tate Che, MD - 01/17/2019 3:50 PM CDT Van Tate Che, MD 01/17/2019 3:50 PM Multichannel Urodynamic Testing - Procedure Note Indications: Multichannel urodynamic testing is being performed to fully evaluate the patient's voiding dysfunction. The risks, benefits and alternatives have been discussed with emphasis on discomfort and urinary tract infections. Procedure Details: The patient's urethral meatus was cleaned with Betadine (used if not allergic to topical iodine, otherwise hibiclens was used). A 7 Fr. Single sensor air-charged catheter was place into the vagina or into the rectum if the pelvic prolapse required restitution for adequate testing. A 7 Fr. Dual sensor air-charged catheter was inserted into the urethra. During testing, the patient's prolapse was reduced with either procto-swabs, or digitally. Cystometrogram: The bladder was filled with room temperature water at a rate of 100 cc per minute. The patient tolerated this and she was found to have: First sensation (S1) at 10 cc. Sensation of fullness at 256 cc. Maximal cystometric capacity of 359 cc. She does have normal bladder compliance. She does not have loss of urine with a rise in detrusor pressure. (but limited the fill at 359 cc for discomfort) Valsalva leak point pressure (VLPP): VLPP at 150 cc: none VLPP at [facility] : none Urethral pressure profilometry (UPP): Maximal urethral closure pressure (MUCP): 80 Leakage amount: none Voiding pressure study (MAINT MECHANIC): She voided via detrusor contraction and urethral relaxation. Her maximal detrusor during void (Pdet max) was 5 cm water. Her void was not phasic. Her post void residual by calculation during the voiding pressure study was 0 cc. Electromyolography (EMG) EMG patches were placed perianally and on the leg for ground. Normal response with squeeze and relaxation was noted. Normal EMG was noted with appropriate relaxation with study. Van Tate MD PROCEDURE/MINOR SURG ICAL ORDERABLES * NC CYSTOURETHROSCOPY (01/17/2019 3:43 PM CDT) Narrative Van Tate Che, MD - 01/17/2019 3:43 PM CDT Van Tate Che, MD 01/17/2019 3:43 PM Cystoscopy Procedure Note Indications: frequency and urgency Procedure Details: The patient was counseled about the procedure including risks, benefits, alternatives, and given a detailed description of what to expect. Cystoscopy was performed with a rigid 70 degree cystoscopy with a 17F sheath under aseptic conditions. The urethra was cleaned with Betadine solution (unless she was allergic to topical iodine when hibiclens was used). A careful examination of all quadrants was performed in a systematic fashion. The patient tolerated the procedure well and was allowed to watch the examination on a video monitor. Urethral visualization was also done. Findings: She was found to have trabeculations only. Efflux was noted from the both ureteral orifice. Squamous metaplasia was noted. Condition: Good Complications: None Van Tate MD PROCEDURE/MINOR SURG ICAL ORDERABLES * CULTURE URINE COMPREHENSIVE (06/02/2018 10:53 AM GRADALL OPERATOR) Pathologist [facility] Culture [facility] Comment: CULTURE, URINE, SPECIAL MICRO NUMBER: [id number] TEST STATUS: FINAL SPECIMEN SOURCE: URINE SPECIMEN QUALITY: ADEQUATE RESULT: No Growth Test Performed at: [facility] [id number] ALFONSO STEPHENS MD Microbiology URINE SPECIMEN COLLECTION, CATHETERIZED / Unknown 06/02/2018 10:53 AM GRADALL OPERATOR 06/03/2018 12:05 AM GRADALL OPERATOR Van Tate MD LAB - MICROBIOLOGY O RDERABLES [address] [address] * NC INSERT NON-INDWELLING BLADDER (06/02/2018 10:48 AM GRADALL OPERATOR) Narrative Van Tate Che, MD - 06/02/2018 10:48 AM GRADALL OPERATOR Van Tate Che, MD 06/02/2018 10:48 AM Please look at progress note for details for the visit. Van Tate MD PROCEDURE/MINOR SURG ICAL ORDERABLES * URINALYSIS - POINT OF CARE (06/02/2018) Pathologist [facility] Clarity UA POCT clear Color UA POCT rui Leukocyte UA neg Negative Nitrite UA POCT neg Negative Urobilinogen UA 0.1 0.1 - 1.0 Protein UA POCT neg Negative pH UA 5.0 5.0 - 8.0 pH units Blood UA neg Negative Specific [place] UA POCT 1.010 1.002 - 1.030 Ketone UA neg Negative Bilirubin UA POCT neg Negative Glucose UA neg Negative Urine URINE / Unknown 06/02/2018 Van Tate MD LAB - POINT OF CARE ORDERABLES * STRESS TEST LEXISCAN (NUCLEAR) (09/19/2012 12:00 PM CDT) 09/19/2012 12:0 0 PM CDT Narrative Transcriptions Coleen Wills MD - 09/19/2012 11:09 AM CDT [facility] CHEMICAL STRESS TEST PATIENT: DIDI ISRAEL MR#: [id number] DATE OF SERVICE: 09/19/2012 CSN: [id number] : 1955 ROOM: [place] [address] REFERRING PHYSICIAN: CHAGO TURPIN ADMIT DATE: 09/18/2012 RESTING EKG: Normal sinus rhythm. Nonspecific ST abnormality. INTERPRETATION: The patient underwent a stress test with 0.4 mg ofLexiscan. CONCLUSION: 1. No chest pain reported. 2. Nondiagnostic EKG noted. 3. No significant arrhythmia noted. 4. Myocardial perfusion scan pending. COLEEN WILLS MD ASN/MODL #: [id number] CHEMICAL STRESS TEST - DP Micky Cifuentes MD CARDIAC SERVICES ORD ERABLES [facility] * CT CHEST PE (09/18/2012 1:14 PM CDT) Anatomical Region Laterality Modality Chest Computed Tomogra phy 09/18/2012 1:31 PM CDT Impressions 09/18/2012 1:31 PM CDT Unremarkable examination. Narrative 09/18/2012 1:[address] Thorax With Contrast CT MIP reconstructions Clinical Indication: Chest pain Comparison: None available Technique: The pulmonary embolus protocol was utilized. Axial CT images from the lung apices to the lung bases were obtained following 80 cc Omnipaque-350 intravenous contrast administration. Coronal maximum intensity projection reconstructions were created on an independent workstation. Findings: There are no filling defects to suggest pulmonary embolus. The heart size and mediastinal structures are unremarkable. The lung garcia are clear. There is no pericardial or pleural effusion. The bony thorax is intact. Procedure Note Rosamaria Sagastume MD - 09/18/2012 CT Thorax With Contrast CT MIP reconstructions Clinical Indication: Chest pain Comparison: None available Technique: The pulmonary embolus protocol was utilized. Axial CT images from the lung apices to the lung bases were obtained following 80 cc Omnipaque-350 intravenous contrast administration. Coronal maximum intensity projection reconstructions were created on an independent workstation. Findings: There are no filling defects to suggest pulmonary embolus. The heart size and mediastinal structures are unremarkable. The lung garcia are clear. There is no pericardial or pleural effusion. The bony thorax is intact. IMPRESSION Unremarkable examination. Chago Turpin MD CT ORDERABLES * (ABNORMAL) D-DIMER (09/18/2012 10:30 AM CDT) [facility] D-Dimer 0.53(H) 0 - 0.5 mg/L FEU 09/18/2012 10:52 AM CDT [facility] Blood specimen (specimen) BLOOD SPECIMEN / Unknown 09/18/2012 10:30 AM CDT 09/18/2012 10:33 AM CDT Narrative [facility] - 09/18/2012 10:52 AM CDT The innovance D-dimer assay now in use at [facility], [facility] and [facility] is intended for use as an aid in diagnosis of venous thromboembolism [(VTE): deep vein thrombosis (DVT), pulmonary embolism (PE), and disseminated intravascular coagulation (DIC)], and has received FDA approval to exclude VTE in patients with low or moderate pretest probability of PE or DVT (per Wells' rules). At a clinical cut-off value 0.50 mg/L FEU, the Negative Predictive Value of this assay is 99.8% for excluding PE and 100% for excluding DVT. A very low percentage of patients with VTE may yield D-dimer results below cut- off value. An elevated D-dimer result has low specificity (40.4% for PE, 35.5% for DVT) and is a poor predictor of VTE. An elevated D-dimer result may indicate DIC in the appropriate clinical setting. Results of this test should always be interpreted in conjunction with the patient's medical history, clinical presentation, and other findings. Chago Turpin MD LAB - COAGULATION ORDERABLES Performing Organization Address [facility] Co de Phone Number [facility] [address] [place] [address] * PTT (09/18/2012 10:30 AM CDT) PTT 30.4 24.0 - 32.0 sec 09/18/2012 10:51 AM CDT [facility] Blood specimen (specimen) BLOOD SPECIMEN / Unknown 09/18/2012 10:30 AM CDT 09/18/2012 10:33 AM CDT Chago Turpin MD LAB - COAGULATION ORDERABLES Performing Organization Address [facility] de Phone Number [facility] [address] [place] [address] * PT-INR (09/18/2012 10:30 AM CDT) PT 11.0 9.4 - 11.2 sec 09/18/2012 10:51 AM CDT [facility] INR 1.05 0.9 - 1.1 09/18/2012 10:51 AM CDT [facility] Blood specimen (specimen) BLOOD SPECIMEN / Unknown 09/18/2012 10:30 AM CDT 09/18/2012 10:33 AM CDT Narrative [facility] - 09/18/2012 10:51 AM CDT Conventional Anticoagulant Therapy INR Reference Ranges: 2.0-3.0 Intensive Anticoagulant Therapy INR Reference Ranges: 2.5-3.5 Chago Turpin MD LAB - COAGULATION ORDERABLES Performing Organization Address [facility] Co de Phone Number [facility] [id number] [place] [phone] Care Teams Sustainable Communities Designer Relationship Specialty Start Date End Date Petros Galdamez MD [address] [place], [place] [phone] PCP - General Family Medicine 03/23/23
[2024-08-08 17:44] VITALS: BP 147/60; PULSE 52; RESP 18; TEMP 37; O2SAT 100
--- OUTSIDE RECORDS SUMMARY | 2024-08-08 19:19 | XMS_ITS | Clinical Summary ---
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 CLINICAL HISTORY: Screening in an asymptomatic patient with no personal or family history of breast cancer. TECHNIQUE: Bilateral full field digital mammography was performed in the CC and MLO projections. Prior mammograms performed at [facility] in [place], [place] and are not currently available for [...] NEGATIVE TECHNOLOGIST: TOÑITO TESFAYE, TECHNOLOGIST MEDICAL IMAGING MANAGER QUANTITATIVE: SINDY TRANSCRIBE DATE/TIME: Sep 09 2012 2:07P RADIOLOGIST: SUNNI LY M.D. READ ON: Sep 20 2012 2:28P ORDERING DR: COREY MOLINA M.D. THIS DOCUMENT HAS BEEN ELECTRONICALLY SIGNED BY: SUNNI LY M.D. ON: Sep 20 2012 4:58P MANAGER QUANTITATIVE: SINDY TRANSCRIBE DATE/TIME: Sep 09 2012 2:07P RADIOLOGIST: SUNNI LY M.D. READ ON: Sep 20 2012 2:28P ORDERING DR: COREY MOLINA M.D. THIS DOCUMENT HAS BEEN ELECTRONICALLY SIGNED BY: SUNNI LY M.D. ON: Sep 20 2012 4:58P Procedure Note Provider, MD Hannah - 10/16/2016 Acc#: [id number] [facility] 0017 - Screening Mamm BI [...] and MLO projections. Prior mammograms performed at [facility] in [place], [place] and are not currently available for [...] NEGATIVE TECHNOLOGIST: TOÑITO TESFAYE, TECHNOLOGIST MEDICAL IMAGING MANAGER QUANTITATIVE: SINDY TRANSCRIBE DATE/TIME: Sep 09 2012 2:07P RADIOLOGIST: SUNNI LY M.D. READ ON: Sep 20 2012 2:28P ORDERING DR: COREY MOLINA M.D. THIS DOCUMENT HAS BEEN ELECTRONICALLY SIGNED BY: SUNNI LY M.D. ON: Sep 20 2012 4:58P MANAGER QUANTITATIVE: SINDY TRANSCRIBE DATE/TIME: Sep 09 2012 2:07P RADIOLOGIST: SUNNI LY M.D. READ ON: Sep 20 2012 2:28P ORDERING DR: COREY MOLINA M.D. THIS DOCUMENT HAS BEEN ELECTRONICALLY SIGNED BY: SUNNI LY M.D. ON: Sep 20 2012 4:58P us Historical Provider MD MAURICE MAMMO PROCEDURES Carmen l Result from Last 3 Months or Most Recently Relevant to Health Maintenance Insurance [facility] PPO [facility] HMO/PPO Address: [address] [place] [address] [facility] MEDICAID MEDICARE SOLUTIONS MEDICARE [facility] MEDICARE SOLUTIONS MEDICARE SOLUTIONS Care Teams Game Attendant Relationship Specialty Start Date End Date Petros Galdamez MD PCP - General Family Practice 01/04/18
--- OUTSIDE RECORDS SUMMARY | 2024-08-08 19:19 | XMS_ITS | Clinical Summary ---
Author Organization [facility] Address [address] [place] [address] Phone Care Team Providers Care Blast Setter Name Role Phone Argenis Bird MD Primary Care Provid er Social History Tobacco Use Types Packs/Day Years Used Date Smoking Tobacco: Never Assessed Comments Unknown Sex and Gender Information Value Date Recorded Sex Assigned at Not on file Legal Sex Female 11:10 AM CDT Gender Identity Not on file Sexual Orientation Not on file Plan of Treatment Health Maintenance Due Date Last Done Comments DTAP/TDAP/TD VACCINES (1 - Tdap) 1973 BREAST CANCER SCREENING 1994 COLORECTAL SCREENING 08/28/1999 Colorectal Cancer Screening 08/28/1999 FIT-DNA Q 3 years 08/28/1999 FIT/FOBT Q 1 year 08/28/1999 Flex Sig/CT Colonography Q 5 years 08/28/1999 PNEUMOCOCCAL VACCINE 65+ YEARS (1 of 1 - PCV) 08/28/19 05 ZOSTER VACCINE (1 of 2) 2004 OSTEOPOROSIS SCREENING 08/28/2019 INFLUENZA VACCINE (#1) 2024 RSV VACCINE (60+ or ) (1 - 1-dose 75+ series) 2029 Care Teams Blast Setter Relationship Specialty [place] [address] [place] [address] PCP - General Internal Medicine 02/02/17
--- OUTSIDE RECORDS SUMMARY | 2024-08-08 19:19 | XMS_ITS | Referral Summary ---
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 Prior mammograms performed at [facility] in [place], [place] and are not currently available for [...] NEGATIVE TECHNOLOGIST: TOÑITO TESFAYE TECHNOLOGIST MEDICAL IMAGING J2EE CONSULTANT: SINDY TRANSCRIBE DATE/TIME: Sep 09 2012 2:07P RADIOLOGIST: SUNNI LY M.D. READ ON: Sep 20 2012 2:28P ORDERING DR: COREY MOLINA M.D. THIS DOCUMENT HAS BEEN ELECTRONICALLY SIGNED BY: SUNNI LY M.D. ON: Sep 20 2012 4:58P J2EE CONSULTANT: SINDY TRANSCRIBE DATE/TIME: Sep 09 2012 2:07P RADIOLOGIST: SUNNI LY M.D. READ ON: Sep 20 2012 2:28P ORDERING DR: COREY MOLINA M.D. THIS DOCUMENT HAS BEEN ELECTRONICALLY SIGNED BY: SUNNI LY M.D. ON: Sep 20 2012 4:58P Procedure Note Provider, MD Hannah - 10/16/2016 Acc#: [id number] [facility] 0017 - Screening Mamm BI [...] and MLO projections. Prior mammograms performed at [facility] in [place], [place] and are not currently available for [...] NEGATIVE TECHNOLOGIST: TOÑITO TESFAYE TECHNOLOGIST MEDICAL IMAGING J2EE CONSULTANT: SINDY TRANSCRIBE DATE/TIME: Sep 09 2012 2:07P RADIOLOGIST: SUNNI LY M.D. READ ON: Sep 20 2012 2:28P ORDERING DR: COREY MOLINA M.D. THIS DOCUMENT HAS BEEN ELECTRONICALLY SIGNED BY: SUNNI LY M.D. ON: Sep 20 2012 4:58P J2EE CONSULTANT: SINDY TRANSCRIBE DATE/TIME: Sep 09 2012 2:07P RADIOLOGIST: SUNNI LY M.D. READ ON: Sep 20 2012 2:28P ORDERING DR: COREY MOLINA M.D. THIS DOCUMENT HAS BEEN ELECTRONICALLY SIGNED BY: SUNNI LY M.D. ON: Sep 20 2012 4:58P Historical Provider MD MAURICE MAMMO PROCEDURES Carmen l Result from Last 3 Months or Most Recently Relevant to Health Maintenance Insurance [facility] PPO [facility] MEDICAID MEDICARE SOLUTIONS [facility] MEDICARE Address: [address] [address] [place] [address] MEDICARE [facility] MEDICARE SOLUTIONS [facility]ICAL [facility] MEDICARE Address: [address] [address] [place] [address] MEDICARE SOLUTIONS [facility]ICAL [facility] MEDICARE Address: [address] [address] [place] [address] Care Teams Shredded Filler Hopper Feeder Relationship Specialty Start Date End Date Petros Galdamez MD PCP - General Family Practice 01/04/18
--- OUTSIDE RECORDS SUMMARY | 2024-08-08 19:19 | XMS_ITS | Clinical Summary ---
Author Organization [facility] Address [address] [place] [address] Care Team Providers Care Freelance Director Name Role Phone Petros Galdamez MD Primary Care Provider [phone] Source Comments [facility],non-owned Affiliates and Associated Physician Practices is amultiple site organization consisting of ambulatory clinics and hospital sitesin [place] and [place]. This disclosure is being madepursuant to the Care Everywhere program and may not contain all information available regarding this patient. Last updated 18.[facility] Allergies Active Allergy Reactions Criticality Noted Date [...] (FLONASE) 50 MCG/ACT nasal sprayIndications:Ch ronic rhinitis [place] 2 (two) sprays into each nostril once [...] 01/12/2023 Immunizations Name Administration Dates Next Due Pavilion Data primary monoval ent 12+ yr 0.3mL Purple [...] Date Recorded PHQ2 TOTAL SCORE 0 01/05/2023 [facility] of Occupat ional Health - Occupational Stress [...] place to sleep or slept in a retirement (including now)? No 07/27/2022 Sex and Gender Information Value Date Recorded Sex Assigned at Female 03/10/2021 2:31 PM CDT Gender Identity Female 03/10/2021 2:31 PM CDT Sexual Orientation Straight 03/10/2021 2: 31 PM CDT Last Filed Vital Signs Vital Sign Reading Time Taken Comments Blood Pressure 132/74 07/13/2023 1:26 PM COLORECTAL SURGEON Pulse 79 03/05/2023 8:17 AM CDT Temperature 36.1 C (96.9 F) 01/12/2023 11:42 AM CDT Respiratory Rate 12 03/05/2023 8:17 AM CDT Oxygen Saturation 100% 10/27/2022 6:50 PM CDT Inhaled Oxygen Concentration - - Weight 86.5 kg (190 lb 9.6 oz) 07/13/2023 1:26 P M COLORECTAL SURGEON Height 157.5 cm (5' 2 ) 07/13/2023 1:26 PM COLORECTAL SURGEON Body Mass Index 34.86 07/13/2023 1:26 PM COLORECTAL SURGEON Plan of Treatment Health Maintenance Due Date [...] SCREENING W JOVANY Routine 08/17/2023 3:32 PM COLORECTAL SURGEON Encounter for screening mammogram for malignant neoplasm of breast BASIC METABOLIC PANEL (CALCIUM TOTAL) Routine 07/28/2022 12:13 AM COLORECTAL SURGEON from Last 3 Months or Most Recently Relevant to Health Maintenance Results * MAMMO BILAT SCREENING W JOVANY (08/17/2023 3:32 PM COLORECTAL SURGEON) Anatomical Region Laterality Modality Breast Bilateral Mammography 08/26/2023 7:37 PM COLORECTAL SURGEON Impressions 08/26/2023 7:40 PM COLORECTAL SURGEON : No mammographic evidence of malignancy. RECOMMENDATION: Screening mammography in one year, pending no interval breast concerns. OVERALL ASSESSMENT: BI-RADS CATEGORY 1: NEGATIVE. > Interpreting Provider: Danay Wallace MD on 08/26/2023 7:40 PM Narrative 08/26/2023 7:40 PM COLORECTAL SURGEON EXAMINATIONS: BILATERAL DIGITAL SCREENING MAMMOGRAM AND BILATERAL BREAST TOMOSYNTHESIS WITH CAD LOCATION: [facility] EXAM DATE: 08/17/2023 HISTORY: Screening. No reported family history of breast cancer. RISK ASSESSMENT CALCULATION: Not performed as tablets currently not available due to pending upgrade. COMPARISON: There are no prior mammograms available for comparison. Patient reports prior at [facility] in 2012. These are no longer available [...] METABOLIC PANEL (CALCIUM TOTAL) (07/28/2022 12:13 AM COLORECTAL SURGEON) BUN 11 7 - 26 mg/dL 07/28/2022 12:56 AM [facility] Creatinine 0.73 0.56 - 0.96 mg/dL 07/28/2022 12:56 AM [facility] Sodium 142 136 - 145 mmol/L 07/28/2022 12:56 AM [facility] Potassium 4.0 3.5 - 4.5 mmol/L 07/28/2022 12:56 AM [facility] Chloride 106 98 - 107 mmol/L 07/28/2022 12:56 AM [facility] CO2 28 22 - 29 mmol/L 07/28/2022 12:56 AM [facility] Glucose 94 70 - 115 mg/dL 07/28/2022 12:56 AM [facility] Calcium 8.9 8.4 - 10.2 mg/dL 07/28/2022 12:56 AM [facility] Anion Gap 12 8 - 18 07/28/2022 12:56 AM [facility] BUN/Creatinine Ratio 15 7 - 23 07/28/2022 12:56 AM [facility] Osmolality Calculated 293 270 - 300 mOsm/kg 07/28/2022 12:56 AM [facility] eGFR by CKD-EPI 90 >=90 mL/min/1.7 3 m2 07/28/2022 12:56 AM [facility] Blood BLOOD SPECIMEN / Unknown Venipuncture / Unknown 07/28/2022 12:13 AM COLORECTAL SURGEON 07/28/2022 12:27 AM [facility] Hosea Lim MD LAB - CHEMISTRY VITALY WHEELER [facility] Organization Address City/State/ZIP Co de Phone Number [facility] [address] [place] [address], [facility] [phone] from Last 3 Months or Most Recently Relevant to Health Maintenance Advance Directives * Full Code (Latest Code Status on File) Date Activated Date Inactivated Comments 07/27/2022 12:01 AM 07/28/2022 2:08 PM * Full Code Date Activated Date Inactivated Comments 12/25/2019 10:56 AM 12/26/2019 11:53 AM Care Teams Freelance Director Relationship Specialty Start Date End Date Petros Galdamez MD [address] [place], [place] [id number] PCP - General Family Medicine 03/23/23
--- OUTSIDE RECORDS SUMMARY | 2024-08-08 19:19 | XMS_ITS | Encounter Summary ---
Author Organization [facility] Address [address] [address] Care Team Providers Care Trash Truck Driver Name Role Phone Petros Galdamez MD Primary Care Provider [phone] Petros Galdamez MD Primary Care Provider [phone] Reason for Visit * Reason Onset Date Comments POST-OP PROBLEM 12/27/2019 Constipation 12/27/2019 Encounter Details Date Type Department Care Team (Late st Contact Info) Description 12/27/2019 Telephone [facility] [address] [place] [address] Van Tate Che, MD [address] [facility] [address] [place] [address] POST-OP PROBLEM; Constipation Social History [...] she goes to the bathroom. Pt callback# [phone] documented in this encounter Plan of Treatment Not on file documented as of this encounter Visit Diagnoses Not on filedocumented in this encounter Care Teams Trash Truck Driver Relationship Specialty Start Date End Date Petros Galdamez MD PCP - General 04/24/19 03/22/23 Petros Galdamez MD [address] [place], [place] [id number] PCP - General Family Medicine 03/23/23 documented as of this encounter
--- OUTSIDE RECORDS SUMMARY | 2024-08-08 19:19 | XMS_ITS | Referral Summary ---
Author Organization [facility] Address [address] [facility] [place] [address] Care Team Providers Care Methods Time Analyst Name Role Phone Petros Galdamez MD Primary Care Provider Source Comments [facility],non-owned Affiliates and Associated Physician Practices is amultiple site organization consisting of ambulatory clinics and hospital sitesin [place], [place], [place] and [place]. This disclosure is being madepursuant to the Care Everywhere program and may not contain all information available regarding this patient. Last updated 18.[facility] Allergies Active Allergy Reactions Criticality [...] (FLONASE) 50 MCG/ACT nasal sprayIndications:Ch ronic rhinitis [place] 2 (two) sprays into each nostril once [...] 01/12/2023 Immunizations Name Administration Dates Next Due [place] primary monoval ent 12+ yr 0.3mL Purple [...] Date Recorded PHQ2 TOTAL SCORE 0 01/05/2023 [place] [place] of Occupat ional Health - Occupational Stress [...] place to sleep or slept in a snf (including now)? No 07/27/2022 Sex and Gender Information Value Date Recorded Sex Assigned at Female 03/10/2021 2:31 PM CDT Gender Identity Female 03/10/2021 2:31 PM CDT Sexual Orientation Straight 03/10/2021 2: 31 PM CDT Last Filed Vital Signs Vital Sign Reading Time Taken Comments Blood Pressure 132/74 07/13/2023 1:26 PM ULTRASONIC CLEANER Pulse 79 03/05/2023 8:17 AM CDT Temperature 36.1 C (96.9 F) 01/12/2023 11:42 AM CDT Respiratory Rate 12 03/05/2023 8:17 AM CDT Oxygen Saturation 100% 10/27/2022 6:50 PM CDT Inhaled Oxygen Concentration - - Weight 86.5 kg (190 lb 9.6 oz) 07/13/2023 1:26 P M ULTRASONIC CLEANER Height 157.5 cm (5' 2 ) 07/13/2023 1:26 PM ULTRASONIC CLEANER Body Mass Index 34.86 07/13/2023 1:26 PM ULTRASONIC CLEANER Functional Status Functional Status Response Date of [...] SCREENING W JOVANY Routine 08/17/2023 3:32 PM ULTRASONIC CLEANER Encounter for screening mammogram for malignant neoplasm of breast BASIC METABOLIC PANEL (CALCIUM TOTAL) Routine 07/28/2022 12:13 AM ULTRASONIC CLEANER from Last 3 Months or Most Recently Relevant to Health Maintenance Results * MAMMO BILAT SCREENING W JOVANY (08/17/2023 3:32 PM ULTRASONIC CLEANER) Anatomical Region Laterality Modality Breast Bilateral Mammography 08/26/2023 7:37 PM ULTRASONIC CLEANER Impressions 08/26/2023 7:40 PM ULTRASONIC CLEANER : No mammographic evidence of malignancy. RECOMMENDATION: Screening mammography in one year, pending no interval breast concerns. OVERALL ASSESSMENT: BI-RADS CATEGORY 1: NEGATIVE. > Interpreting Provider: Danay Wallace MD on 08/26/2023 7:40 PM Narrative 08/26/2023 7:40 PM ULTRASONIC CLEANER EXAMINATIONS: BILATERAL DIGITAL SCREENING MAMMOGRAM AND BILATERAL BREAST TOMOSYNTHESIS WITH CAD LOCATION: [facility] EXAM DATE: 08/17/2023 HISTORY: Screening. No reported family history of breast cancer. RISK ASSESSMENT CALCULATION: Not performed as tablets currently not available due to pending upgrade. COMPARISON: There are no prior mammograms available for comparison. Patient reports prior at [facility] in 2012. These are no longer [...] METABOLIC PANEL (CALCIUM TOTAL) (07/28/2022 12:13 AM ULTRASONIC CLEANER) BUN 11 7 - 26 mg/dL 07/28/2022 12:56 AM [facility] Creatinine 0.73 0.56 - 0.96 mg/dL 07/28/2022 12:56 AM [facility] Sodium 142 136 - 145 mmol/L 07/28/2022 12:56 AM [facility] Potassium 4.0 3.5 - 4.5 mmol/L 07/28/2022 12:56 AM [facility] Chloride 106 98 - 107 mmol/L 07/28/2022 12:56 AM [facility] CO2 28 22 - 29 mmol/L 07/28/2022 12:56 AM [facility] Glucose 94 70 - 115 mg/dL 07/28/2022 12:56 AM [facility] Calcium 8.9 8.4 - 10.2 mg/dL 07/28/2022 12:56 AM [facility] Anion Gap 12 8 - 18 07/28/2022 12:56 AM [facility] BUN/Creatinine Ratio 15 7 - 23 07/28/2022 12:56 AM [facility] Osmolality Calculated 293 270 - 300 mOsm/kg 07/28/2022 12:56 AM [facility] eGFR by CKD-EPI 90 >=90 mL/min/1.7 3 m2 07/28/2022 12:56 AM [facility] Blood BLOOD SPECIMEN / Unknown Venipuncture / Unknown 07/28/2022 12:13 AM ULTRASONIC CLEANER 07/28/2022 12:27 AM ULTRASONIC CLEANER Hosea Lim MD LAB - CHEMISTRY VITALY WHEELER [facility] [address] [place] [id number], [facility] [phone] from Last 3 Months or Most Recently Relevant to Health Maintenance Advance Directives * Full Code (Latest Code Status on File) Date Activated Date Inactivated Comments 07/27/2022 12:01 AM 07/28/2022 2:08 PM * Full Code Date Activated Date Inactivated Comments 12/25/2019 10:56 AM 12/26/2019 11:53 AM Care Teams Methods Time Analyst Relationship Specialty Start Date End Date Petros Galdamez MD [address] [place], [place] [phone] PCP - General Family Medicine 03/23/23
--- OUTSIDE RECORDS SUMMARY | 2024-08-08 19:19 | XMS_ITS | Clinical Summary ---
Author Organization [facility] Address [address] [place] [address] Care Team Providers Care Sales Closer Name Role Phone Petros Galdamez MD Primary Care Provider [phone] Allergies Active Allergy Reactions Criticality Noted Date [...] on file Legal Sex Female 10:33 PM TINSMITH HELPER Gender Identity Not on file Sexual Orientation [...] Lifestyle No Pradeep Siddiqui i, RN Insurance [facility] Advance Directives * Full Code (Latest Code Status on File) Date Activated Date Inactivated Comments 02/03/2022 12:15 AM 02/03/2022 4:09 PM Care Teams Sales Closer Relationship Specialty Start Date End Date Petros Galdamez MD PCP - General FAMILY PRACTICE 06/29/18
--- OUTSIDE RECORDS SUMMARY | 2024-08-08 19:19 | XMS_ITS | Encounter Summary ---
Author Organization [facility] Address [address] [place] [address] Care Team Providers Care Livestock Trader Name Role Phone Petros Galdamez MD Primary Care Provider [phone] Petros Galdamez MD Primary Care Provider [phone] Reason for Visit * Reason Onset Date Comments Post-Op 12/28/2019 Encounter Details Date Type Department Care Team (Late st Contact Info) Description 12/28/2019 Telephone [facility] [address] [place], [place] [id number] Van Tate Che, MD [address] [facility] [address] [place] [address] Post-Op Social History Tobacco Use [...] Nurse about managing discomfort. Pt's CB #: [phone] documented in this encounter Plan of Treatment Not on file documented as of this encounter Visit Diagnoses Not on filedocumented in this encounter Care Teams Livestock Trader Relationship Specialty Start Date End Date Petros Galdamez MD PCP - General 04/24/19 03/22/23 Petros Galdamez MD [address] [place], [place] [id number] PCP - General Family Medicine 03/23/23 documented as of this encounter
--- OUTSIDE RECORDS SUMMARY | 2024-08-08 19:19 | XMS_ITS | Clinical Summary ---
Author Organization [facility] Address [address] [place] [address] Care Team Providers Care Flight Test Shop Mechanic Name Role Phone Unavailable Primary Care Provider Unavailabl e Social History Tobacco Use Types Packs/Day Years Used Date Smoking Tobacco: Never Assessed Comments Unknown Sex and Gender Information Value Date Recorded Sex Assigned at Not on file Legal Sex Female 3:00 PM PROTECTION MANAGER Gender Identity Not on file Sexual Orientation [...]
--- OUTSIDE RECORDS SUMMARY | 2024-08-08 19:19 | XMS_ITS | Encounter Summary ---
Author Organization [facility] Address [address] [facility] [place] [address] Care Team Providers Care Document Control Manager Name Role Phone Petros Galdamez MD Primary Care Provider Petros Galdamez MD Primary Care Provider [phone] Petros Galdamez MD Primary Care Provider [phone] Encounter Details Date Type Department Care Team (Late st Contact Info) Description 11/21/2018 Telephone [facility] [address] [place] [address] Van Tate Che, MD [address] [address] Social History Tobacco Use Types [...] on filedocumented in this encounter Care Teams Document Control Manager Relationship Specialty Start Date End Date Petros Galdamez MD PCP - General 06/02/18 04/23/19 Petros Galdamez MD PCP - General 04/24/19 03/22/23 Petros Galdamez MD [address] [place], [place] [id number] PCP - General Family Medicine 03/23/23 documented as of this encounter
--- OUTSIDE RECORDS SUMMARY | 2024-08-08 19:20 | XMS_ITS | Patient Health Summary ---
Author Organization [facility] Address [address] [place] [address] Care Team Providers Care Interactive Media Director Name Role Phone Petros Galdamez MD Primary Care Provider [phone] [facility],non-owned Affiliates and Associated Physician Practices is amultiple site organization consisting of ambulatory clinics and hospital sitesin [place], [place], [place] and [place]. This disclosure is being madepursuant to the Care Everywhere program and may not contain all information available regarding this patient. Last updated 18.[facility] Allergies * Adhesive Sensitivity(Skin Reactions,Rash) -Medium Criticality [...] propionate (FLONASE) 50 MCG/ACT nasal spray(Started 01/05/2022) [place] 2 (two) sprays into each nostril once [...] Date Recorded PHQ2 TOTAL SCORE 0 01/05/2023 [facility] - Occupational Stress [...] place to sleep or slept in a long term (including now)? No 07/27/2022 Sex and Gender Information Value Date Recorded Sex Assigned at Female 03/10/2021 2:31 PM CDT Gender Identity Female 03/10/2021 2:31 PM CDT Sexual Orientation Straight 03/10/2021 2: 31 PM CDT Last Filed Vital Signs Vital Sign Reading Time Taken Comments Blood Pressure 132/74 07/13/2023 1:26 PM [employer] Pulse 79 03/05/2023 8:17 AM CDT Temperature 36.1 C (96.9 F) 01/12/2023 11:42 AM CDT Respiratory Rate 12 03/05/2023 8:17 AM CDT Oxygen Saturation 100% 10/27/2022 6:50 PM CDT Inhaled Oxygen Concentration - - Weight 86.5 kg (190 lb 9.6 oz) 07/13/2023 1:26 P M [employer] Height 157.5 cm (5' 2 ) 07/13/2023 1:26 PM [employer] Body Mass Index 34.86 07/13/2023 1:26 PM [employer] Procedures * MAMMO BILAT SCREENING W JOVANY(Performed [...] GLUCOSE - POINT OF CARE(Performed 07/26/2022) * WA LARYNGOSCOPY,FLEX FIBER,DIAGNOSTIC(Performed 08/05/2021) Performed for Dry throat, [...] state * ENDOTRACHEAL TUBE NOTE(Performed 12/25/2019) * WA ANTER COLPORRHAPHY,BLAD/VAGINA(Performed 12/25/2019) Performed for Diagnosis unknown [...] TOTAL)(Performed 04/24/2019) Performed for Preop examination * WA ANAL/URINARY MUSCLE STUDY(Performed 01/17/2019) Performed for Midline cystocele, Vaginal vault prolapse, Nocturia, Urge incontinence * WA INTRAABDOMINAL PRESSURE TEST(Performed 01/17/2019) Performed for Midline cystocele, Vaginal vault prolapse, Nocturia, Urge incontinence * WA CYSTOMETROGRAM W/RN PICU&UP(Performed 01/17/2019) Performed for Midline cystocele, Vaginal vault prolapse, Nocturia, Urge incontinence * WA CYSTOURETHROSCOPY(Performed 01/17/2019) Performed for Nocturia, Urge incontinence * CULTURE URINE COMPREHENSIVE(Performed 06/02/2018) Performed for Nocturia, Urge incontinence * WA INSERT NON-INDWELLING BLADDER(Performed 06/02/2018) Performed for Nocturia, [...] BILAT SCREENING W JOVANY (08/17/2023 3:32 PM [employer]) Anatomical Region Laterality Modality Breast Bilateral Mammography 08/26/2023 7:37 PM [employer] Impressions 08/26/2023 7:40 PM [employer] : No mammographic evidence of malignancy. RECOMMENDATION: Screening mammography in one year, pending no interval breast concerns. OVERALL ASSESSMENT: BI-RADS CATEGORY 1: NEGATIVE. > Interpreting Provider: Danay Wallace MD on 08/26/2023 7:40 PM Narrative 08/26/2023 7:40 PM [employer] EXAMINATIONS: BILATERAL DIGITAL SCREENING MAMMOGRAM AND BILATERAL BREAST TOMOSYNTHESIS WITH CAD LOCATION: [facility] EXAM DATE: 08/17/2023 HISTORY: Screening. No reported family history of breast cancer. RISK ASSESSMENT CALCULATION: Not performed as tablets currently not available due to pending upgrade. COMPARISON: There are no prior mammograms available for comparison. Patient reports prior at [facility] in 2012. These are no longer [...] CONT Exam Date: 03/23/2023 12:17 PM Location: [facility] INDICATION: Aneurysm TECHNIQUE: 3-D [id number] images were obtained through the brain. 3-D post processed MIP reformats were created and reviewed. FINDINGS: There are no old studies available for comparison purposes. The study is compared to an old CT angio brain report from July 2022 from [facility]. The petrous portions of the internal carotid [...] WO CONT Exam Date: 03/23/2023 12:17PM Location: [facility] INDICATION: Aneurysm TECHNIQUE: 3-D [id number] images were obtained through the brain.3-D post processed MIP reformats were created and reviewed. FINDINGS: There are no old studies available for comparison purposes.The study is compared to an old CT angio brain report from July 2022from [facility]. The petrous portions of the internal carotid [...] identified. Report dictated by Chago Ball DO (global supply chain vice president). IKen have personally reviewed and interpreted this examination/study. > Interpreting Provider: Ken Hamm on 10/28/2022 8:26 AM Narrative 10/28/2022 8:26 AM CDT PROCEDURE: XR TIBIA FIBULA LEFT 2VW, DATE/TIME OF EXAM: 10/27/2022 7:48 PM, LOCATION [facility] INDICATION: M25.572: Acute left ankle pain ADDITIONAL CLINICAL INFORMATION: Ordering Provider Reason For Exam: pain COMPARISON: None. FINDINGS: The tibia and fibula are intact without evidence of acute fracture. Bone density and texture are normal. No soft tissue swelling is present. Procedure Note Ken Hamm MD - 10/28/2022 PROCEDURE: XR TIBIA FIBULA LEFT 2VW, DATE/TIME OF EXAM: 10/27/2022 7:48PM, LOCATION [facility] INDICATION: M25.572: Acute left ankle pain ADDITIONAL CLINICAL INFORMATION: Ordering Provider Reason For Exam: pain COMPARISON: None. FINDINGS: The tibia and fibula are intact without evidence of acute fracture. Bone density and texture are normal. No soft tissue swelling is present. IMPRESSION: No acute tibial or fibular fracture identified. Report dictated by Chago Ball DO (global supply chain vice president). Ken Gandhi have personally reviewed and interpreted [...] identified. Report dictated by Chago Ball DO (global supply chain vice president). Ken Gandhi have personally reviewed and interpreted this examination/study. > Interpreting Provider: Ken Hamm on 10/28/2022 8:25 AM Narrative 10/28/2022 8:25 AM CDT PROCEDURE: XR ANKLE LEFT 3VW OR MORE, DATE/TIME OF EXAM: 10/27/2022 7:48 PM, LOCATION [facility] INDICATION: M25.572: Acute left ankle pain [...] DATE/TIME OF EXAM: 10/27/2022 7:48 PM, LOCATION [facility] INDICATION: M25.572: Acute left ankle pain ADDITIONAL CLINICAL INFORMATION: Ordering Provider Reason For Exam: pain and swelling COMPARISON: None. FINDINGS: The osseous structures are intact and well aligned without acutefracture or dislocation. The ankle mortise is intact. Bone density and textureare normal. No soft tissue swelling is present. IMPRESSION: No acute fracture or dislocation identified. Report dictated by Chago Ball DO (global supply chain vice president). IKen have personally reviewed and interpreted this examination/study. > Interpreting Provider: Ken Hamm on 10/28/2022 8:25 AM Rey Whatley MD DIAGNOSTIC IMAGING O RDERABLES * CARDIAC EKG ORDER (07/30/2022 4:39 PM [employer]) Only the most recent of5 resultswithin the time period is included. Narrative 07/30/2022 4:39 PM [employer] Ordered by an unspecified provider. Scanned Document CARDIAC SERVICES ORD ERABLES * PT-INR [facility] (07/28/2022 6:39 PM [employer]) Only the most recent of2 resultswithin the time period is included. PT 13.6 12.1 - 14.8 Seconds 07/28/2022 7:21 PM [facility] INR 1.1 See Comment 07/28/2022 7:21 PM [facility] Comment:The suggested therap eutic range for standard coumadin (warfarin) therapy is an INR of 2.0-3.0. For high-risk patients (Mechanical Mitral Valve Prosthesis, etc.), the suggested prophylactic therapeutic range is an INR of 2.5-3.5. Blood BLOOD SPECIMEN / Unknown Venipuncture / Unknown 07/28/2022 6:39 PM [employer] 07/28/2022 6:52 PM [employer] Hosea Lim MD LAB - COAGULATION OR DERABLES Performing Organization Address City/[facility]/ZIP Co de Phone Number [address] [address], [place] [phone] * TROPONIN I (07/28/2022 6:39 PM [employer]) Only the most recent of7 resultswithin the time period is included. [facility] Troponin I 0.011 <0.032 ng/mL 07/28/2022 7:13 PM [employer] [facility] Blood BLOOD SPECIMEN / Unknown Venipuncture / Unknown 07/28/2022 6:39 PM [employer] 07/28/2022 6:47 PM [employer] Hosea Lim MD LAB - CHEMISTRY ORDE RABLES Performing Organization Address [facility] Co de Phone Number [address] [address], [facility] [phone] * TYPE + SCREEN PANEL (07/28/2022 6:39 PM [employer]) Only the most recent of2 resultswithin the time period is included. [facility] Antibody Screen NEG 7:30 PM [employer] [facility] B[facility]OD [facility] ABO Rh O POS 07/28/2022 7:30 PM [employer] [facility] Blood Bank BLOOD SPECIMEN / Unknown Venipuncture / Unknown 07/28/2022 6:39 PM [employer] 07/28/2022 6:45 PM [employer] Hosea Lim MD LAB - BLOOD BANK ORD ERABLES Performing Organization Address [facility] Co de Phone Number [facility] [address] [place] [phone], [facility] [phone] * (ABNORMAL) CBC W AUTO DIFFERENTIAL (07/28/2022 6:39 PM [employer]) Only the most recent of5 resultswithin the time period is included. [facility] WBC 6.5 3.5 - 10.5 10 3/uL 07/28/2022 7:05 PM [facility] RBC 4.72 3.80 - 5.20 10 6/uL 07/28/2022 7:05 PM [facility] Hemoglobin 12.4 12.0 - 15.6 g/dL 07/28/2022 7:05 PM [facility] Hematocrit 37.4 35.0 - 45.0 % 07/28/2022 7:05 PM [facility] MCV 79.2(L) 80.7 - 98.3 fL 07/28/2022 7:05 PM [facility] MCH 26.3(L) 26.7 - 34.0 pg 07/28/2022 7:05 PM [facility] MCHC 33.2 30.8 - 35.9 g/dL 07/28/2022 7:05 PM [facility] RDW-SD 42.6 36.0 - 50.0 fL 07/28/2022 7:05 PM [facility] RDW-CV 14.8 11.2 - 14.8 % 07/28/2022 7:05 PM [facility] Platelet Count 320 150 - 400 10 3/uL 07/28/2022 7:05 PM [facility] MPV 10.7 9.4 - 12.9 fL 07/28/2022 7:05 PM [facility] nRBC Absolute 0.00 0 10 3/uL 07/28/2022 7:05 PM [facility] nRBC Auto 0.0 0 /100 WBC 07/28/2022 7:05 PM [facility] Neutrophils % 53.9 35.0 - 70.0 % 07/28/2022 7:05 PM [facility] Lymphocytes % 34.2 20.0 - 43.0 % 07/28/2022 7:05 PM [facility] Monocytes % 8.7 5.0 - 13.0 % 07/28/2022 7:05 PM [facility] Eosinophils % 2.8 0.0 - 6.0 % 07/28/2022 7:05 PM [facility] Basophil % 0.2 0.0 - 2.0 % 07/28/2022 7:05 PM [facility] Neutrophils Absolute 3.52 1.60 - 7.00 10 3/uL 07/28/2022 7:05 PM [facility] Lymphocyte Absolute 2.23 1.10 - 3.90 10 3/uL 07/28/2022 7:05 PM [facility] Monocytes Absolute 0.57 0.26 - 1.07 10 3/uL 07/28/2022 7:05 PM [facility] Eosinophils Absolute 0.18 0.00 - 0.47 10 3/uL 07/28/2022 7:05 PM [facility] Basophils Absolute 0.01 0.00 - 0.08 10 3/uL 07/28/2022 7:05 PM [facility] Immature Granulocytes % 0.2 0.0 - 1.0 % 07/28/2022 7:05 PM [facility] Immature Granulocytes Absolute 0.01 07/28/2022 7:05 PM [facility] Blood BLOOD SPECIMEN / Unknown Venipuncture / Unknown 07/28/2022 6:39 PM [employer] 07/28/2022 6:47 PM [employer] Hosea Lim MD LAB - HEMATOLOGY ORD ERABLES [address] [address], [facility] [phone] * (ABNORMAL) COMPREHENSIVE METABOLIC PANEL (07/28/2022 6:39 PM [employer]) Only the most recent of3 resultswithin the time period is included. BUN 12 7 - 26 mg/dL 07/28/2022 7:24 PM [facility] Creatinine 0.89 0.56 - 0.96 mg/dL 07/28/2022 7:24 PM [facility] Sodium 144 136 - 145 mmol/L 07/28/2022 7:24 PM [facility] Potassium 4.4 3.5 - 4.5 mmol/L 07/28/2022 7:24 PM [facility] Chloride 104 98 - 107 mmol/L 07/28/2022 7:24 PM [facility] CO2 28 22 - 29 mmol/L 07/28/2022 7:24 PM [facility] Glucose 90 70 - 115 mg/dL 07/28/2022 7:24 PM [facility] Calcium 9.0 8.4 - 10.2 mg/dL 07/28/2022 7:24 PM [facility] Protein Total 7.2 6.0 - 8.3 g/dL 07/28/2022 7:24 PM [facility] Albumin 3.8 3.4 - 5.0 g/dL 07/28/2022 7:24 PM [facility] Bilirubin Total 0.5 0.2 - 1.2 mg/dL 07/28/2022 7:24 PM [facility] Alkaline Phosphatase 132 40 - 150 U/L 07/28/2022 7:24 PM [facility] ALT 26 5 - 55 U/L 07/28/2022 7:24 PM [facility] AST 30 5 - 34 U/L 07/28/2022 7:24 PM [facility] Anion Gap 16 8 - 18 07/28/2022 7:24 PM [facility] BUN/Creatinine Ratio 13 7 - 23 07/28/2022 7:24 PM [facility] Osmolality Calculated 297 270 - 300 mOsm/kg 07/28/2022 7:24 PM [facility] Albumin/Globulin Ratio 1.1 1.1 - 2.3 07/28/2022 7:24 PM [facility] eGFR by CKD-EPI 71(L) >=90 mL/min/1.7 3 m2 07/28/2022 7:24 PM [facility] Blood BLOOD SPECIMEN / Unknown Venipuncture / Unknown 07/28/2022 6:39 PM [employer] 07/28/2022 6:47 PM [employer] Hosea Lim MD LAB - CHEMISTRY ORDE [place] [facility] Organization Address City/State/ZIP Co de Phone Number [facility] [address] [place] [address], [facility] [phone] * EKG 12-LEAD (07/28/2022 6:27 PM [employer]) Only the most recent of3 resultswithin the time period is included. Ventricular Rate 67 BPM [facility] Atrial Rate 67 BPM [facility] P-R Interval 160 ms [facility] QRS Duration ms 80 ms [facility] Q-T Interval ms 406 ms [facility] QTC Calculation (Bezet) 429 ms [facility] Calculated P [place] 47 degrees [facility] Calculated R [place] -10 degrees [facility] Calculated T [place] 6 degrees [facility] Interpretation EKG NORMAL SINUS RHYTHM MINIMAL VOLTAGE CRITERIA FOR LVH, MAY BE NORMAL VARIANT ( R in aVL ) BORDERLINE ECG WHEN COMPARED WITH ECG OF 27-JUL-2022 00:18, NONSPECIFIC T WAVE ABNORMALITY NO LONGER EVIDENT IN ANTERIOR LEADS Confirmed by FATMATA GREENE MD ([id number]) on 07/29/2022 2:52:20 PM H MUSE 07/28/2022 6:27 PM [employer] 07/29/2022 2:52 PM [employer] Hosea Lim MD ECG ORDERABLES [facility] MUSE * CT BRAIN - Stroke (07/28/2022 6:21 PM [employer]) Only the most recent of2 resultswithin the time period is included. Anatomical Region Laterality Modality Head Computed Tomogra phy 07/28/2022 6:26 PM [employer] Impressions 07/28/2022 10:41 PM [employer] IMPRESSION: No acute intracranial abnormality. Results of [...] 07/28/2022 10:41 PM Narrative 07/28/2022 10:41 PM [employer] PROCEDURE: CT BRAIN STROKE, DATE/TIME OF EXAM: 07/28/2022 6:23 PM, LOCATION [facility] INDICATION: Code Stroke ADDITIONAL CLINICAL INFORMATION: [...] STROKE, DATE/TIME OF EXAM: 07/28/2022 6:23 PM,LOCATION [facility] INDICATION: Code Stroke ADDITIONAL CLINICAL INFORMATION: [...] - POINT OF CARE (07/28/2022 6:19 PM [employer]) Only the most recent of4 resultswithin the time period is included. Glucose WB/POC 87 70 - 115 mg/dL 07/29/2022 6:22 AM [employer] [facility] Specimen Type Cap Fingerstick 2022 6:22 AM [employer] [facility] Blood BLOOD SPECIMEN / Unknown 07/28/2022 6:19 PM [employer] 07/29/2022 6:22 AM [employer] Provider Unknown LAB - POINT OF CARE ORDERABLES [facility] [address] [place] [phone], [facility] [phone] * CT HEAD NON CONTRAST (07/28/2022 1:44 AM [employer]) Anatomical Region Laterality Modality Head Computed Tomogra phy 07/28/2022 1:43 AM [employer] Impressions 07/28/2022 1:07 PM [employer] IMPRESSION: 1.No acute intracranial process. > Dictated by Av Rojas MD (Boxer Operator) I, Nano Dominguez MD have personally reviewed and interpreted this examination/study. > Interpreting Provider: Nano Dominguez MD on 07/28/2022 1:07 PM Narrative 07/28/2022 1:07 PM [employer] PROCEDURE: CT HEAD WO CONTRAST, DATE/TIME OF EXAM: 07/28/2022 1:45 AM, LOCATION [facility] INDICATION: R29.810: Facial weakness ADDITIONAL CLINICAL [...] DATE/TIME OF EXAM: 07/28/2022 1:45 AM, LOCATION [facility] INDICATION: R29.810: Facial weakness ADDITIONAL CLINICAL [...] process. > Dictated by Av Rojas MD (Boxer Operator) I, Nano Dominguez MD have personally reviewed and interpreted this examination/study. > Interpreting Provider: Nano Dominguez MD on 07/28/2022 1:07 PM Hosea Lim MD CT ORDERABLES * MRI BRAIN WO CONTRAST (07/28/2022 1:34 AM [employer]) Anatomical Region Laterality Modality Head Magnetic Resonan ce 07/28/2022 11:1 7 AM [employer] Impressions 07/28/2022 11:35 AM [employer] IMPRESSION: 1. No evidence of restricted diffusion to suggest an acute infarction. > Interpreting Provider: Jessica Pickering MD on 07/28/2022 11:35 AM Narrative 07/28/2022 11:35 AM [employer] PROCEDURE: MRI BRAIN WO CONTRAST, DATE/TIME OF EXAM: 07/28/2022 1:34 AM, LOCATION [facility] INDICATION: I63.9: Cerebrovascular accident (CVA), unspecified [...] DATE/TIME OF EXAM: 07/28/2022 1:34 AM, LOCATION [facility] INDICATION: I63.9: Cerebrovascular accident (CVA), unspecified [...] (ABNORMAL) CBC W/O DIFFERENTIAL (07/28/2022 12:13 AM [facility]) Only the most recent of2 resultswithin the time period is included. WBC 6.8 3.5 - 10.5 10 3/uL 07/28/2022 12:43 AM [facility] RBC 4.58 3.80 - 5.20 10 6/uL 07/28/2022 12:43 AM [facility] Hemoglobin 11.7(L) 12.0 - 15.6 g/dL 07/28/2022 12:43 AM [facility] Hematocrit 36.0 35.0 - 45.0 % 07/28/2022 12:43 AM [facility] MCV 78.6(L) 80.7 - 98.3 fL 07/28/2022 12:43 AM [facility] MCH 25.5(L) 26.7 - 34.0 pg 07/28/2022 12:43 AM [facility] MCHC 32.5 30.8 - 35.9 g/dL 07/28/2022 12:43 AM [facility] RDW-SD 42.5 36.0 - 50.0 fL 07/28/2022 12:43 AM [facility] RDW-CV 15.0(H) 11.2 - 14.8 % 07/28/2022 12:43 AM [facility] Platelet Count 312 150 - 400 10 3/uL 07/28/2022 12:43 AM [facility] MPV 10.6 9.4 - 12.9 fL 07/28/2022 12:43 AM [facility] nRBC Absolute 0.00 0 10 3/uL 07/28/2022 12:43 AM [facility] nRBC Auto 0.0 0 /100 WBC 07/28/2022 12:43 AM [facility] Blood BLOOD SPECIMEN / Unknown Venipuncture / Unknown 07/28/2022 12:13 AM [facility] 07/28/2022 12:27 AM [facility] Hosea Lim MD LAB - HEMATOLOGY ORD ERABLES [facility] [address] [place] [phone], [facility] [phone] * BASIC METABOLIC PANEL (CALCIUM TOTAL) (07/28/2022 12:13 AM [facility]) Only the most recent of4 resultswithin the time period is included. BUN 11 7 - 26 mg/dL 07/28/2022 12:56 AM [facility] Creatinine 0.73 0.56 - 0.96 mg/dL 07/28/2022 12:56 AM [facility] Sodium 142 136 - 145 mmol/L 07/28/2022 12:56 AM [facility] Potassium 4.0 3.5 - 4.5 mmol/L 07/28/2022 12:56 AM [facility] Chloride 106 98 - 107 mmol/L 07/28/2022 12:56 AM [facility] CO2 28 22 - 29 mmol/L 07/28/2022 12:56 AM [facility] Glucose 94 70 - 115 mg/dL 07/28/2022 12:56 AM [facility] Calcium 8.9 8.4 - 10.2 mg/dL 07/28/2022 12:56 AM [facility] Anion Gap 12 8 - 18 07/28/2022 12:56 AM [facility] BUN/Creatinine Ratio 15 7 - 23 07/28/2022 12:56 AM [facility] Osmolality Calculated 293 270 - 300 mOsm/kg 07/28/2022 12:56 AM [facility] eGFR by CKD-EPI 90 >=90 mL/min/1.7 3 m2 07/28/2022 12:56 AM [facility] Blood BLOOD SPECIMEN / Unknown Venipuncture / Unknown 07/28/2022 12:13 AM [employer] 07/28/2022 12:27 AM [employer] Hosea Lim MD LAB - CHEMISTRY ORDSafia [employer] [address] [address], [facility] [phone] * PHOSPHORUS BLOOD (07/28/2022 12:13 AM [employer]) Only the most recent of2 resultswithin the time period is included. Phosphorus 3.4 2.9 - 5.1 mg/dL 07/28/2022 2:01 AM [facility] Blood BLOOD SPECIMEN / Unknown Venipuncture / Unknown 07/28/2022 12:13 AM [employer] 07/28/2022 12:27 AM [employer] Warren Tripathi MD LAB - CHEMISTRY ORD [place] Performing Organization Address City/[facility]/ZIP Co de Phone Number [address] [address], [facility] [phone] * MAGNESIUM BLOOD (07/28/2022 12:13 AM [employer]) Only the most recent of2 resultswithin the time period is included. Magnesium 2.0 1.6 - 2.6 mg/dL 07/28/2022 2:01 AM [facility] Blood BLOOD SPECIMEN / Unknown Venipuncture / Unknown 07/28/2022 12:13 AM [employer] 07/28/2022 12:27 AM [employer] Warren Tripathi MD LAB - CHEMISTRY ORD ERABLES [facility] [address] [place] [phone], [facility] [phone] * BLOOD TYPE VERIFICATION (07/27/2022 3:44 PM [employer]) ABO Rh O POS 07/27/2022 4:3 6 PM [employer] [facility] BLOOD BANK LAB Blood Bank BLOOD SPECIMEN / Unknown Venipuncture / Unknown 07/27/2022 3:44 PM [employer] 07/27/2022 3:50 PM [employer] Awilda Schmidt MD LAB - BLOOD BANK ORD ERABLES [facility] BLOOD BANK LAB [address] [place] [id number], [place] [phone] * HEMOGLOBIN A1C (07/27/2022 3:44 PM [employer]) Hemoglobin A1c 5.3 <=5.6 % 07/28/2022 8:14 AM [facility] Estimated Average Glucose 105 mg/dL 07/28/2022 8:14 AM [facility] Comment: HbA1c Interpretation: Normal : < 5.7% Pre-diabetes: 5.7-6.4% Diabetes: Equal to or greater than 6.5% Test results diagnostic of diabetes should be repeated for confirmation. Treatment target values recommended by ADA and other clinical organizations should be used to evaluate metabolic control in patients. Reference: [place] [employer], Standards of Care in Diabetes -2020 In patients 70 years and older consider HbA1c target range of 7.0-7.5% (Reference: Paco Palumbo et al. JAMDA. 2012) The Sebia assay for the measurement of HbA1c is a National Glycohemoglobin Standardization Program (NGSP) certified method. Blood BLOOD SPECIMEN / Unknown Venipuncture / Unknown 07/27/2022 3:44 PM [employer] 07/27/2022 3:53 PM [employer] Hosea Lim MD LAB - CHEMISTRY [facility] [address] [place] [address], [place] [phone] * ECHO COMPLETE W BUBBLE STUDY (07/27/2022 10:01 AM [employer]) Anatomical Region Laterality Modality Chest Echo 07/27/2022 8:59 AM [employer] Narrative Procedure Note Rey Montes De Oca MD - 07/27/2022 Hosea Lim MD ECHOCARDIOGRAPHY RAD IANT * (ABNORMAL) LIPID PROFILE (07/27/2022 3:10 AM [employer]) Cholesterol Total 163 <200 mg/dL 07/27/2022 3:36 AM [facility] HDL 34(L) >40 mg/dL 07/27/2022 3:36 AM [facility] Comment: ATP III Classification of HDL Cholesterol: <40 mg/dL: Considered a major risk factor. >60 mg/dL: Considered a negative risk factor. LDL Calculated 110(H) <100 mg/dL 07/27/2022 3:36 AM [facility] Comment: ATP III Classification of LDL Cholesterol: <100 mg/dL: Optimal 100 - 129 mg/dL: Near Optimal/Above Optimal 130 - 159 mg/dL: Borderline High 160 - 189 mg/dL: High >190 mg/dL: Very High Triglycerides 94 <150 mg/dL 07/27/2022 3:36 AM [facility] Comment: ATP III Classification of Triglycerides: <150 mg/dL: Normal 150 - 199 mg/dL: Borderline High 200 - 400 mg/dL: High >500 mg/dL: Very High Blood BLOOD SPECIMEN / Unknown Venipuncture / Unknown 07/27/2022 3:10 AM [employer] 07/27/2022 3:23 AM [employer] Hosea Lim MD LAB - CHEMISTRY [facility] [address] [place] [address] [phone] * XR CHEST 1VW PORTABLE (07/27/2022 12:52 AM [employer]) Only the most recent of2 resultswithin the time period is included. Anatomical Region Laterality Modality Chest Radiographic Elvia ging 07/27/2022 8:14 AM [employer] Narrative 07/27/2022 8:15 AM [employer] EXAMINATION: XR CHEST 1VW PORTABLE HISTORY: R29.810: [...] ANGIO BRAIN NECK STROKE (07/27/2022 12:16 AM [employer]) Anatomical Region Laterality Modality Head Computed Tomogra phy 07/27/2022 12:0 6 AM [employer] Impressions 07/27/2022 12:36 PM [employer] IMPRESSION: 1.Patent intracranial arteries. 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 3.No stenosis of cervical segments of carotid and vertebral arteries. These findings of no LVO were discussed in detail with the patient's care provider, Dr. Teixeira by Dr. Styles via telephone at 12:23 am on 07/27/22 with readback comprehension and verification. > Dictated by Av Rojas MD (Boxer Operator) I, Patti Marcano MD have personally reviewed and interpreted this examination/study. > Interpreting Provider: Patti Marcano MD on 07/27/2022 12:36 PM Narrative 07/27/2022 12:36 PM [employer] PROCEDURE: CT ANGIO BRAIN NECK STROKE, DATE/TIME OF EXAM: 07/27/2022 12:17 AM, LOCATION [facility] INDICATION: Code Stroke COMPARISON: None. EXAMINATION: [...] arteries and basilar artery without stenosis. Patent clay temperer. origin of both clay temperer. The dural venous sinuses are patent. CTA [...] STROKE, DATE/TIME OF EXAM: 2:17 AM, LOCATION [facility] INDICATION: Code Stroke COMPARISON: None. EXAMINATION: CT angiogram of the brain CT angiogram of the neck TECHNIQUE: CT angiography of the head and neck was obtained after administration of intravenous contrast. Three dimensional postprocessing was performed by the technologist and sent to the workstation [employer] NASCET criteria was utilized for evaluation of [...] arteries and basilar artery without stenosis. Patent clay temperer. origin of both clay temperer. The dural venous sinuses are patent. CTA [...] verification. > Dictated by Av Rojas MD (Boxer Operator) I, Patti Marcano MD have personally reviewed and interpreted this examination/study. > Interpreting Provider: Patti Marcano MD on 07/27/2022 12:36 PM Authorizing Provider Result Katalina Lim MD CT ORDERABLES * INR WHOLE BLOOD - POINT OF CARE (IP) STROKE (07/26/2022 11:56 PM [employer]) INR 1.2 0.9 - 1.2 07/27/2022 5:45 AM [facility] Device [id number] 07/27/2022 5:45 AM [facility] Day Habilitation Specialist ID [id number] 07/27/2022 5:45 AM [facility] Blood BLOOD SPECIMEN / Unknown 07/26/2022 11:56 PM [employer] 07/27/2022 5:45 AM [employer] Narrative Authorizing Provider Result Katalina Lim MD LAB - POINT OF CARE ORDERABLES [address] [address], [facility] [phone] * CREATININE - POCT INTERFACED (07/26/2022 11:56 PM [employer]) Creatinine POCT 0.68 0.30 - 1.30 mg/dL 07/26/2022 11:58 PM [facility] Comment:CT range acceptable eGFR >90 >90 mL/min/1.7 3 m2 07/26/2022 11:58 PM [facility] Blood BLOOD SPECIMEN / Unknown 07/26/2022 11:56 PM [employer] 07/26/2022 11:58 PM [employer] Narrative Authorizing Provider Result Katalina Lim MD LAB - POINT OF CARE ORDERABLES [facility] [place] [phone] [phone] * WA LARYNGOSCOPY,FLEX FIBER,DIAGNOSTIC (08/05/2021 11:21 AM [employer]) Narrative Ravin Sheikh MD - 08/05/2021 11:21 AM [employer] Ravin Sheikh MD 08/05/2021 11:22 AM Procedure Note Endoscopy Type: Laryngoscopy without stroboscopy [id number] Endoscope: Flexible 4mm Scope Anesthesia: Lidocaine 2% [...] ORDERABLES * T3 FREE (06/12/2020 3:25 PM [employer]) T3 Free 2.8 2.0 - 4.4 pg/mL [facility] INSURANCE BILL 06/12/2020 3:25 PM [employer] 06/12/2020 Narrative Resulting Agency Comment Lab Testing performed at: [facility] [address] [facility] [phone] Zachariah Woo MD LAB - CHEMISTRY [facility] INSURANCE BILL [address] [place] [address] * (ABNORMAL) TSH (06/12/2020 3:25 PM [employer]) Only the most recent of3 resultswithin the time period is included. TSH 4.910(H) 0.450 - 4.500 uIU/mL [facility] INSURANCE BILL 06/12/2020 3:25 PM [employer] 06/12/2020 Narrative Resulting Agency Comment Lab Testing performed at: [facility] [address] [facility] [phone] Zachariah Woo MD LAB - CHEMISTRY [facility]ER Performing Organization Address [facility] de Phone Number [facility] INSURANCE BILL [address] [place] [address] * T4 FREE (06/12/2020 3:25 PM [employer]) Only the most recent of3 resultswithin the time period is included. T4 Free 1.00 0.82 - 1.77 ng/dL [facility] INSURANCE BILL 06/12/2020 3:25 PM [employer] 06/12/2020 Narrative Resulting Agency Comment Lab Testing performed at: [facility] [address] [facility] [phone] Zachariah Woo MD LAB - CHEMISTRY [facility] WHEELER Performing Organization Address [facility] de Phone Number [facility] INSURANCE BILL [address] [place] [address] * NM MYOCARD PERF REST STRESS (03/14/2020 [...] in the RAC. Myocardial perfusion imaging was [id number] minutes post-injection. Preliminary rest EKG demonstrated no [...] The BP was 154/88 mmHg at rest [id number]/84 mmHg after the stress procedure. A separate [...] Event Date/Time: 12/25/2019 8:57 AM Procedure: intubation (78817). Procedure Section: Sedation: under general anesthesia. Indications [...] Not detected, Invalid 12/20/2019 6:19 PM CDT [facility]CRO[facility] Microbiology SPECIMEN FROM NASOPHARYNGEAL STRUCTURE / Unknown Collection / Unknown 12/20/2019 10:08 AM CDT 12/20/2019 10:23 AM CDT Narrative [facility]CRO[facility] - 12/20/2019 6:19 PM CDT This nucleic acid amplification assay performance was validated by [facility]. This test has [...] Tate MD LAB - MICROBIOLOGY O RDERABLES [facility] MICROBIOLOGY [address] [place] [address], [facility] [phone] * WA CYSTOMETROGRAM W/RN PICU&UP, WA INTRAABDOMINAL PRESSURE TEST, WA ANAL/URINARY MUSCLE STUDY (01/17/2019 3:50 PM CDT) [...] VLPP at 150 cc: none VLPP at JAIL : none Urethral pressure profilometry (UPP): Maximal urethral closure pressure (MUCP): 80 Leakage amount: none Voiding pressure study (RN PICU): She voided via detrusor contraction and urethral [...] Tate MD PROCEDURE/MINOR SURG ICAL ORDERABLES * WA CYSTOURETHROSCOPY (01/17/2019 3:43 PM CDT) Narrative Van [...] * CULTURE URINE COMPREHENSIVE (06/02/2018 10:53 AM [employer]) Pathologist [facility] Culture [facility] Comment: CULTURE, URINE, SPECIAL MICRO NUMBER: [id number] TEST STATUS: FINAL SPECIMEN SOURCE: URINE SPECIMEN QUALITY: ADEQUATE RESULT: No Growth Test Performed at: [facility] [address] ALFONSO STEPHENS MD Microbiology URINE SPECIMEN COLLECTION, CATHETERIZED / Unknown 06/02/2018 10:53 AM [employer] 06/03/2018 12:05 AM [employer] Van Tate MD LAB - MICROBIOLOGY O RDERABLES [address] [address] * WA INSERT NON-INDWELLING BLADDER (06/02/2018 10:48 AM [employer]) Narrative Van Tate Che, MD - 06/02/2018 10:48 AM [employer] Van Tate Che, MD 06/02/2018 10:48 AM Please look at progress note for details for the visit. Van Tate MD PROCEDURE/MINOR SURG ICAL ORDERABLES * URINALYSIS - POINT OF CARE (06/02/2018) Pathologist [facility] Clarity UA POCT clear Color UA POCT rui Leukocyte UA neg Negative Nitrite UA POCT neg Negative Urobilinogen UA 0.1 0.1 - 1.0 Protein UA POCT neg Negative pH UA 5.0 5.0 - 8.0 pH units Blood UA neg Negative Specific [place] UA POCT 1.010 1.002 - 1.030 Ketone UA neg Negative Bilirubin UA POCT neg Negative Glucose UA neg Negative Urine URINE / Unknown 06/02/2018 Van Tate MD LAB - POINT OF CARE ORDERABLES * STRESS TEST LEXISCAN (NUCLEAR) (09/19/2012 12:00 PM CDT) 09/19/2012 12:0 0 PM CDT Narrative Transcriptions Coleen Wills MD - 09/19/2012 11:09 AM CDT [facility] CHEMICAL STRESS TEST PATIENT: DIDI ISRAEL MR#: [id number] DATE OF SERVICE: 09/19/2012 CSN: [id number] : 1955 ROOM: [place] [address] REFERRING PHYSICIAN: CHAGO TURPIN ADMIT DATE: 09/18/2012 RESTING EKG: Normal sinus rhythm. Nonspecific ST abnormality. INTERPRETATION: The patient underwent a stress test with 0.4 mg ofLexiscan. CONCLUSION: 1. No chest pain reported. 2. Nondiagnostic EKG noted. 3. No significant arrhythmia noted. 4. Myocardial perfusion scan pending. COLEEN WILLS MD ASN/MODL #: [id number] CHEMICAL STRESS TEST - DP Micky Cifuentes [...] * (ABNORMAL) D-DIMER (09/18/2012 10:30 AM CDT) [facility] D-Dimer 0.53(H) 0 - 0.5 mg/L FEU 09/18/2012 10:52 AM CDT [facility] Blood specimen (specimen) BLOOD SPECIMEN / Unknown 09/18/2012 10:30 AM CDT 09/18/2012 10:33 AM CDT Narrative [facility] - 09/18/2012 10:52 AM CDT The innovance D-dimer assay now in use at [facility], [facility] and [facility] is intended for use as an aid [...] LAB - COAGULATION ORDERABLES Performing Organization Address [facility] Co de Phone Number [facility] [address] [place] [address] * PTT (09/18/2012 10:30 AM CDT) PTT 30.4 24.0 - 32.0 sec 09/18/2012 10:51 AM CDT [facility] Blood specimen (specimen) BLOOD SPECIMEN / Unknown 09/18/2012 10:30 AM CDT 09/18/2012 10:33 AM CDT Chago Turpin MD LAB - COAGULATION ORDERABLES Performing Organization Address [facility] de Phone Number [facility] [address] [place] [phone] * PT-INR (09/18/2012 10:30 AM CDT) PT 11.0 9.4 - 11.2 sec 09/18/2012 10:51 AM CDT [facility] INR 1.05 0.9 - 1.1 09/18/2012 10:51 AM CDT [facility] Blood specimen (specimen) BLOOD SPECIMEN / Unknown 09/18/2012 10:30 AM CDT 09/18/2012 10:33 AM CDT Narrative [facility] - 09/18/2012 10:51 AM CDT Conventional Anticoagulant Therapy INR Reference Ranges: 2.0-3.0 Intensive Anticoagulant Therapy INR Reference Ranges: 2.5-3.5 Chago Turpin MD LAB - COAGULATION ORDERABLES Performing Organization Address [facility] Co de Phone Number [facility] [phone] [place] [address] Care Teams Interactive Media Director Relationship Specialty Start Date End Date Petros Galdamez MD [address] [place], [place] [id number] PCP - General Family Medicine 03/23/23
--- NOTE | 2024-08-08 19:21 | ED.GENADULT ---
HPI - General Adult General Chief complaint: Ear Stated complaint: ear ringing, headache Time Seen by Provider: 08/08/24 18:49 History of Present Illness HPI narrative: This is a 68 year female presenting with right ear pain. Symptoms started earlier today. Include fullness, loss of hearing and pain in her right ear. She feels that she has some sinus congestion throat irritation that side. No fevers, nausea vomiting. Related Data Home Medications ?Medication ?Instructions ?Recorded ?Confirmed ?Last Taken ?Type aspirin 81 mg chewable tablet 81 mg PO DAILY 03/23/24 Unknown History cholecalciferol (vitamin D3) 1,250 1,250 mcg PO WEEKLY 03/23/24 Unknown History mcg (50,000 unit) capsule hydrochlorothiazide 12.5 mg tablet 12.5 mg PO DAILY 03/23/24 Unknown History levothyroxine 75 mcg capsule 75 mcg PO DAILY 03/23/24 Unknown History Allergies Allergy/AdvReac Type Severity Reaction Status Date / Time sulfamethoxazole (From AdvReac Unknown Verified 08/08/24 17:39 Bactrim) trimethoprim (From Bactrim) AdvReac Unknown Verified 08/08/24 17:39 [facility] Past Medical History Medical History Stroke Family History Family History Father Alcoholism Asthma Cancer Hypertension Heart disease Cerebrovascular accident Social History Social History Smoking status: Never smoker Alcohol intake: current Substance use: never Substance use type: does not use Do You Feel Safe in your Home?: Yes Lack of Transportation: No Lack of Food: Never True Current Housing: I Have Housing Concerned About Future Housing: No Difficulty Paying Gas/Electric Bills: No Difficulty Paying for Meds: No Currently Unemployed: No Education: Bachelor's Degree Gender identity (if verbalized by the patient): Female Exam Narrative: APPEARANCE: No apparent distress. Head: Cerumen impaction in the right ear EYES: EOMI, NOSE: Atraumatic NECK: Trachea midline RESPIRATORY: No increased rate of breathing CARDIOVASCULAR: RRR, ABDOMINAL: Non-distended MUSCULOSKELETAl: No obvious deformities NEURO: Alert. Moving 4/4 extremities SKIN:: Warm, dry. Normal color PSYCHIATRIC: Normal affect Course Vital Signs Vital signs: Vital Signs Temperature 98.6 F 08/08/24 17:44 Pulse Rate 52 L 08/08/24 17:44 Respiratory Rate 18 08/08/24 17:44 Blood Pressure 147/60 H 08/08/24 17:44 Pulse Oximetry 100 08/08/24 17:44 Oxygen Delivery Room Air 08/08/24 17:44 Temperature 98.6 F 08/08/24 17:44 Pulse Rate 52 L 08/08/24 17:44 Respiratory Rate 18 08/08/24 17:44 Blood Pressure 147/60 H 08/08/24 17:44 Pulse Oximetry 100 08/08/24 17:44 Oxygen Delivery Room Air 08/08/24 17:44 Medical Decision Making MDM Narrative Medical decision making narrative: -Course: 68-year-old female presenting with right fullness and discomfort. External ear canal is impacted with cerumen. This was removed the patient feels significantly better. Re-evaluation the ear canal is normal with normal TM. She will be discharged. -DDX includes but is not limited to: Otitis media, cerumen impaction, answers fusion Vital Signs Vital Signs: Vital Signs Temperature 98.6 F 08/08/24 17:44 Pulse Rate 52 L 08/08/24 17:44 Respiratory Rate 18 08/08/24 17:44 Blood Pressure 147/60 H 08/08/24 17:44 Pulse Oximetry 100 08/08/24 17:44 Oxygen Delivery Room Air 08/08/24 17:44 Temperature 98.6 F 08/08/24 17:44 Pulse Rate 52 L 08/08/24 17:44 Respiratory Rate 18 08/08/24 17:44 Blood Pressure 147/60 H 08/08/24 17:44 Pulse Oximetry 100 08/08/24 17:44 Oxygen Delivery Room Air 08/08/24 17:44 Discharge Plan Discharge Clinical Impression: Cerumen impaction Patient Disposition: Home, Self-Care Condition: Stable Instructions: Antibiotic Form, Earache (ED) Additional Instructions: Please use Flonase as needed for your congestion. Please follow-up with your primary care physician as needed Patient Language: Fijian Prescriptions: No Action hydrochlorothiazide 12.5 mg tablet 12.5 mg PO DAILY levothyroxine 75 mcg capsule 75 mcg PO DAILY aspirin 81 mg tablet,chewable 81 mg PO DAILY cholecalciferol (vitamin D3) 1,250 mcg (50,000 unit) capsule 1,250 mcg PO WEEKLY atorvastatin 40 mg tablet 80 mg PO QHS Qty: 90 3RF Follow-up/Referrals: PHYSICIAN NOT ON STAFF,NONSTAFF [Primary Care Provider] -
[2024-08-08] MEDS: ACETAMINOPHEN 500 MG TABLET 1000 MG PO (19:53)
[2024-08-08] MEDS: FLUTICASONE PROPIONATE 0.05% NA SPR 16 GM BTL (*BKC) 2 SPRAY NASAL (19:54)
[2024-08-08] MEDS: guaiFENesin 12 HR 600 MG TABCR 1200 MG PO (19:54)
== END 2024-08-08 20:41 | disposition home or self-care (01) ==
PROVIDERS: Emergency Provider Emergency Medicine
DX: H61.21 Impacted cerumen, right ear (principal); Z86.73 Personal history of transient ischemic attack (TIA), and cerebral infarction without residual deficits
CPT/HCPCS: 69209; 99283; A9270